=== PATIENT | male | born 1945 | race Caucasian/White ===

== ENCOUNTER 2017-03-04 12:39 | Inpatient (IN) ==
[2017-03-04] MEDS ORDERED: SODIUM CHLORIDE 0.9% 1,000 ML IV STA (15:00)
[2017-03-04 15:30] LABS: Basophils % 0.1 % (0.0-0.8); Hematocrit 32.9 VOL% (42.0-52.0); Hemoglobin 10.5 GM/DL (14.0-18.0); Immature Granulocytes % 0.7 %; Immature Granulocytes Absolute 0.14 #; Lymphocytes # 0.6 10*3/uL (1.4-4.0); Lymphocytes % 2.7 % (21.2-54.2); Mean Corpuscular HGB Conc 31.9 GM/DL (32-36); Mean Corpuscular Hemoglobin 28 PG (27-34); Mean Corpuscular Volume 86.8 FL (87-102); Mean Platelet Volume 11.5 FL (9.6-12.0); Monocytes # 0.7 10*3/uL (0.11-0.8); Monocytes % 3.3 % (1.7-12.7); Neutrophils # 19.3 10*3/uL (1.4-7.4); Neutrophils % 93.2 % (38.7-73.9); Platelet Count 497 T/CUMM (130-400); Red Blood Count 3.79 MC/CUMM (3.8-5.5); Red Cell Distribution Width 15.9 % (9.3-17.3); White Blood Count 20.7 T/CUMM (4-12)
[2017-03-04 15:44] LABS: Bilirubin,Total 0.4 MG/DL (0.2-1.0); Calcium 9.8 MG/DL (8.5-10.1); Osmolality,Calculated 297.4 MOS/KG (273-304); Potassium 3.7 MMOL/L (3.5-5.1); Total Protein 7.5 G/DL (6.4-8.3)
--- NOTE | 2017-03-04 15:47 | XRay Report ---
EXAM: XR abdomen 2V CLINICAL INDICATION: Abdominal Pain COMPARISON: None Findings: No gastric distention. Air-fluid level within the single loop of bowel within the right upper quadrant on upright imaging. Remainder of bowel gas pattern is normal. Visceral shadows are normal. No abnormal focal soft tissue masses or calcific densities identified in the abdomen or pelvis. Osseous structures are somewhat demineralized. IMPRESSION: Nonobstructed bowel gas pattern. Single loop of bowel demonstrating air-fluid level within the upper abdomen, nonspecific. Follow-up as clinically indicated. PROCEDURE INTERPRETED AT [facility] DEPARTMENT OF RADIOLOGY Final Report Signed by: Artem Grant
--- NOTE | 2017-03-04 16:33 | Emergency Department Note ---
IFelipe Gwan, am scribing for, and in the presence of, Bruce Todd Jr., MD 15:03. IPerez Marvin Jr., MD, personally performed the services described in this documentation, ascribed by Jamarcus Wang in my presence, and it is both accurate and complete 513 . Arrival - Arrival Chief Complaint: Abdominal / Flank Pain Stated Complaint: abd pain,weak,very hard of hearing ED Nursing Triage Note: C/O Having abd.pain x 3 weeks., states he feels like he is constipated., last BM was today , patient is by himself - poor historian , Mode of Arrival: Wheelchair Limitations: No Limitations (Patient is very hard of hearing) Source: Patient, Old Records Reviewed, RN Notes Reviewed Time Seen by Provider: 03/04/17 14:47 - History of Present Illness HPI Narrative: Patient is a 71 y/o male who presents to the ED with a c/o stomach pain and tightness in his stomach with an onset 3 weeks ago. Patient stated that it feels like something is "pacted" in his stomach. He continued to note that he has tried some over the counter medications but none of them have worked for him. Patient is followed by [employer] Dr. Fausto Ramires. Patient denies having any fever, chills or a PCP but stated that he goes to Dr. Ramires for most of his medical problems. He has not followed up with Dr. Ramires for his stomach pain. Patient does not have a SHx of tobacco or ETOH. No other problems/complaints reported in ED. Onset (ago): week(s) Consistency: constant Severity: moderate Quality: cramping Allergies/Adverse Reactions: Allergies Allergy/AdvReac Type Severity Reaction Status Date / Time No Known Allergies Allergy Verified 03/04/17 12:55 Home Medications: Home Medications Medication Instructions Recorded Confirmed Type Aspirin [Ecotrin] 81 mg PO DAILY 02/04/15 10/22/15 History HYDROcodone/ACETAMIN 5-325 [[place] 1 tablet PO Q6H #20 tablet 02/04/15 10/24/15 Rx 5-325] Lisinopril 30 mg PO DAILY 02/04/15 10/22/15 History Omeprazole [Prilosec] 20 mg PO DAILY 02/04/15 10/22/15 History amLODIPine [Norvasc] 10 mg PO DAILY 10/22/15 10/22/15 History DULoxetine [Cymbalta] 30 mg PO BEDTIME #30 capsule 11/03/15 Rx Duloxetine HCl [Cymbalta] 60 mg PO DAILY #30 capsule 11/03/15 Rx Gabapentin Cap/Tab [Neurontin 100 mg PO TID #90 capsule 11/03/15 Rx Cap/Tab] Insulin Detemir [Levemir] 40 unit SUBCUT BEDTIME #1 vial 11/03/15 Rx Insulin Lispro [HumaLOG] See Protocol SUBCUT TID W/MEALS #1 11/03/15 Rx vial Magnesium Chloride [Slow Mag] 64 mg PO DAILY #30 tablet 11/03/15 Rx Zaleplon [Sonata] 5 mg PO BEDTIME PRN #30 capsule 11/03/15 Rx carBAMazepine TAB [TEGretol TAB] 200 mg PO BID #60 tablet 11/03/15 Rx hydrALAZINE TAB [Apresoline Tab] 50 mg PO TID #90 tablet 11/03/15 Rx Review of System - Review of System 12 point system: reviewed and no additional remarkable complaints except as stated - Review of System Constitutional: Present: as per HPI. Absent: chills, fever Gastrointestinal: Present: as per HPI, abdominal pain, constipation Medical,Surgical,& Family Hx - Medical History Cardio: History of: CHF, Hypertension, Cardiovascular Problems Psychological: History of: Depression, Psychiatric Problems (depressed mood aeb feelings of helplessness and hopelessness, worthlessness) No history of: Anxiety Disorders, ADHD, Behavior Problems, Bipolar Disorder, Previous Suicide Attempt, Psychiatric/Substance Abuse Tx, Schizophrenia, Violent Behavior Neurology: History of: TIA HEENT: No history of: Ear Problem, Eye Problem, Dental Problems, Glaucoma, Oral Cancer, HEENT Problems Endocrine: History of: Diabetes Mellitus (IDDM) No history of: Adrenal Disease, Diabetes Mellitus (NIDDM), Thyroid Disorder, Endocrine Cancer, Endocrine Problems Rheumatology: History of;: Gout, Rheumatoid Arthritis, Rheumatological Problems No history of;: Fibromyalgia, Myasthenia Gravis, Psoriasis, Sjogrens, Systemic Lupus Erythematosus Respiratory: History of: Obstructive Sleep Apnea, Pneumonia, Respiratory Problems Renal: History of: Renal Failure, Renal Problems (CRF, GOUT) No history of: Renal (Kidney) Cancer, Dialysis Genitourinary: History of: Problems No history of: Bladder Problem, Kidney Stones, Prostate Problems, Recurring Urinary Tract Infections, Genitourinary Cancer Gastrointestinal: History of: GERD, GI Problems No history of: Bowel Obstruction, Clostridium Difficile, Crohn's Disease, Diverticulitis/ Diverticulosis, Esophageal Varices, Gastrointestinal Bleed, Hemorrhoids, Hematochezia, Hepatitis, Liver Problems, Pancreatitis, Polyps, Ulcerative Colitis, Gastrointestinal Cancer Musculoskeletal: History of: Back/Neck Problems, Musculoskeletal Problems No history of: Amputation, Degenerative Disk Disease, Herniated Disk, Osteoporosis, Musculoskeletal Cancer Hematology: No history of: Anemia, Blood Transfusion Reaction, Bleeding Problems, Clotting Problems, Sickle Cell Disease, Hematologic Cancer, Blood Disorders Other: No history of: Anesthesia Reactions, Anaphylaxis, Cancer, Eczema, HIV, Malignant Hyperthermia, MRSA, Vancomycin-Resistant Enterococci, Skin Problems, Miscellaneous Medical Problems - Surgical History Cardiac Surgeries: Patient Denies: Femoral-Popliteal Bypass Graft, Cardiac Catheterization, Cardiac Surgery, Internal Defibrillator, Vascular Access Devices Thoracic Surgeries: Patient denies;: Kidney (Renal Surgery), Lithotripsy, Nephrectomy, Organ Transplant, Lobectomy Neurologic Surgeries: Patient denies: Neurologic Surgery HEENT Surgeries: Patient denies: Eye Surgery, Thyroid Surgery, Tonsilectomy & Adenoidectomy Abdominal Surgeries: Patient denies: Abdominal Surgery, Appendectomy, Cholecystectomy, Colonoscopy , Gastric Bypass Surgery, EGD, Hernia Repair, Splenectomy Reproductive Surgeries: Patient denies;: Cystoscopy, Genitourinary Surgery, Prostate Surgery Orthopedic Surgeries: Surgical HX of;: Total Hip Replacement Patient denies;: Implanted Devices, Orthopedic Surgery, Spinal Surgery, Total Knee Replacement - Family History Family History: Reports;: Family Diabetes, Family Heart Disease, Family Hypertension Denies;: Family Anesthesia Reaction, Family Cancer, Family Psychiatric Problems, Family Stroke - Social History Smoking Status: Never smoker Frequency of Alcohol Use: None Type of Drug Use: None Exam Physical Examination: General: Well-developed well-nourished, no apparent distress. Head: Normocephalic, atraumatic. Eyes: PERRLA, EOMI. Nose: No obvious acute deformities or discharge. Mouth: No obvious acute injury. Neck: Full range of motion without obvious pain. No midline tender to palpation. Lymphatic: no significant lymphadenopathy noted. Lungs: Clear to auscultation bilaterally, normal and equal air movement bilaterally, no obvious rales or wheezing. Heart: regular rate and rhythm, no obvious mummers. Abdomen: Very distended, tight, mild generalized tender to palpation, tympanic Skin: No obivous acute lesions noted , skin pale Musculoskeletal: No gross deformities. Neurological: No focal findings, cranial nerves II through XII grossly normal. Hard of hearing, follows directions, Psychiatric: Anxious : Deferred Vital Signs: Vital Signs Temperature 99.0 F 03/04/17 15:02 Pulse Rate 114 H 03/04/17 15:02 Respiratory Rate 20 03/04/17 15:02 Blood Pressure 126/97 03/04/17 15:02 O2 Sat by Pulse Oximetry 97 03/04/17 13:55 Course Course Narrative: Differential diagnosis: Constipation, partial obstructions, intra-abdominal neoplasia, ascites, - Reevaluation(s) Reevaluation #1: Multiple medical problems that were will require admission, discussed with hospitalist who accepts patient. Time: 16:28 Results - Labs CBC & BMP: 03/04/17 15:16 03/04/17 15:16 Lab Results: I have reviewed the patients labs Labs: Laboratory Tests 03/04/17 15:16 WBC 20.7 H RBC 3.79 L Hgb 10.5 L Hct 32.9 L MCV 86.8 L MCH 28 MCHC 31.9 L RDW 15.9 Plt Count 497 H MPV 11.5 Neut % (Auto) 93.2 H Lymph % (Auto) 2.7 L Kimball % (Auto) 3.3 Eos % (Auto) 0.0 Baso % (Auto) 0.1 Neut # (Auto) 19.3 H Lymph # (Auto) 0.6 L Kimball # (Auto) 0.7 Eos # (Auto) 0.0 Baso # (Auto) 0.0 Immature Gran % 0.7 Nucleated RBC % 0.0 Immature Gran # 0.14 Nucleated RBCs # 0.00 Immature Plt Fraction 0.0 Laboratory Tests 03/04/17 15:16 Lipase 157.0 Laboratory Tests 03/04/17 15:16 Sodium 133 L Potassium 3.7 Chloride 105 Carbon Dioxide 12 L Anion Gap 19.7 H BUN 95 H Creatinine 8.40 H GFR Calculation 7 BUN/Creatinine Ratio 11.00 Glucose 159 H Calculated Osmolality 297.4 Calcium 9.8 Total Bilirubin 0.40 AST 14 ALT 11 L Alkaline Phosphatase 124 H Total Protein 7.5 Albumin 3.0 L Globulin 4.5 H Albumin/Globulin Ratio 0.6 L - Diagnostic Findings Procedure: Abdominal x-ray: report reviewed by me, image reviewed by me ( Nonobstructed bowel gas pattern. Single loop of bowel demonstrating air-fluid within the upper abdomen, nonspecific. Follow-up as clinically indicated. ) Disposition Clinical Impression: Large bowel obstruction, Chronic renal failure, Anemia, Neutrophilia Case discussed with: patient, patient's family Disposition: Still a Patient Condition: Stable Time of Disposition: 16:32
--- NOTE | 2017-03-04 16:47 | CT Report ---
History: Generalized abdominal pain Date: 03/04/2017 Study: CT abdomen and pelvis without contrast Comparison exam: No previous comparison CT Technique: Spiral CT sections were obtained from the lung bases to the pubic symphysis without contrast. Preliminary report discussed with Dr. Todd at time of dictation CT abdomen: There is no gross pneumonia in the partially visualized lung bases. There is no gross pleural or pericardial effusion. There is some mild perihepatic and bilateral paracolic gutter ascites. There is no pneumoperitoneum. There is disproportionate colonic distention compatible with high-grade partial colonic obstruction at the level of the mid to distal descending colon. There is an abrupt transition area, though a definite discrete mass is not seen without benefit of oral contrast. There is moderate gallbladder distention with partially calcific density gallstones in the lumen of the gallbladder. Calcified granulomata are noted in the normal caliber spleen. The liver, adrenal glands, bile ducts are unremarkable. There is rounded exophytic density associated with either kidney compatible with renal cyst formation, though other pathology cannot be excluded without the benefit of renal ultrasound. There is no aortic aneurysm. CT pelvis: There is diverticulosis of sigmoid colon. There is no soft tissue mass of the pelvis. There is mild lumbar spondylosis. Impression: High-grade partial colonic obstruction at the mid to distal descending colon level. Occult colonic malignancy is suspected Ascites Cholelithiasis The CT exam was performed using one or more of the following dose reduction techniques: Automated exposure control, adjustment of the mA and/or kV according to patient size, or use of iterative reconstruction technique. PROCEDURE INTERPRETED AT [facility] DEPARTMENT OF RADIOLOGY Final Report Signed by: Dr. Ananya Blue
[2017-03-04 17:40] LABS: Lymphocytes 4 % (20-55); Platelet Estimate Increased; Segmented Neutrophils 95 % (50-85); Total Cells Counted 100
[2017-03-04 17:41] LABS: Burr Cells Few; Ovalocytes Few; Poikilocytosis 1+; Tear Drop Cells Few
--- NOTE | 2017-03-04 18:06 | Hospitalist History & Physical ---
<Twyla Barrientos - Last Filed: 03/04/17 17:50> Assessment and Plan (1) Large bowel obstruction Status: Acute Assessment and plan: Admit to service. Place on med surg unit. Consult surgery. Keep NPO for now. IVFs. Start IV antibiotics. Current Visit: Yes (2) Chronic renal failure Status: Acute Assessment and plan: Consult renal. Bun/creatinine 85/8.40. Current Visit: Yes (3) Hypertension Status: Acute Assessment and plan: Pt's bp stable now. Current Visit: No (4) Type 2 diabetes mellitus Status: Acute Assessment and plan: Accuchecks achs. SSI. Current Visit: No (5) Gout Status: Acute Current Visit: No History of Present Illness Chief complaint: constipation History of present illness: Mr. Allred is a 71 year old male with a history of GERD, hypertension, diabetes , gout, chronic renal failure, PTSD, hearing loss, and depression that presented to the ED for further evaluation of constipation. Patient is accompanied by his daughter who is present at the bedside. Patient reports a 3 or 4 week history of constipation. Patient states that he did have a bowel movement a couple of days ago but that it was the size of a pecan and it was "mushy". Pt. states that his abdomen hurts and that it is a sharp pain that radiates from side to side. Pt. denies taking any medications for the pain. Pt. denies any chest pain, nausea or vomiting, chills, night sweats. Pt. does not smoke or drink. He is followed by Dr. Fausto Ramires for renal failure. Not yet on dialysis. There are no other complaints in the ED at this time. Labs reveal elevated WBC and renal failure. CT of abdomen 'revealed high grade partial colonic obstruction at the mid to distal descending colon level. Occult colonic malignancy is suspected'. Pt's case has been discussed with Dr. Green and the patient will be admitted to the hospitalist service for further eval and treatment. Dr. Jaime (surgery) will see the patient. Nephrology will also be consulted. Home Medications Medication Instructions Recorded Confirmed Type Aspirin [Ecotrin] 81 mg PO DAILY 02/04/15 10/22/15 History HYDROcodone/ACETAMIN 5-325 [[place] 1 tablet PO Q6H #20 tablet 02/04/15 10/24/15 Rx 5-325] Lisinopril 30 mg PO DAILY 02/04/15 10/22/15 History Omeprazole [Prilosec] 20 mg PO DAILY 02/04/15 10/22/15 History amLODIPine [Norvasc] 10 mg PO DAILY 10/22/15 10/22/15 History DULoxetine [Cymbalta] 30 mg PO BEDTIME #30 capsule 11/03/15 Rx Duloxetine HCl [Cymbalta] 60 mg PO DAILY #30 capsule 11/03/15 Rx Gabapentin Cap/Tab [Neurontin 100 mg PO TID #90 capsule 11/03/15 Rx Cap/Tab] Insulin Detemir [Levemir] 40 unit SUBCUT BEDTIME #1 vial 11/03/15 Rx Insulin Lispro [HumaLOG] See Protocol SUBCUT TID W/MEALS #1 11/03/15 Rx vial Magnesium Chloride [Slow Mag] 64 mg PO DAILY #30 tablet 11/03/15 Rx Zaleplon [Sonata] 5 mg PO BEDTIME PRN #30 capsule 11/03/15 Rx carBAMazepine TAB [TEGretol TAB] 200 mg PO BID #60 tablet 11/03/15 Rx hydrALAZINE TAB [Apresoline Tab] 50 mg PO TID #90 tablet 11/03/15 Rx Allergies Allergy/AdvReac Type Severity Reaction Status Date / Time No Known Allergies Allergy Verified 03/04/17 12:55 Medical,Surgical,& Family Hx - Medical History Cardio: History of: CHF, Hypertension, Cardiovascular Problems Psychological: History of: Depression, Psychiatric Problems (depressed mood aeb feelings of helplessness and hopelessness, worthlessness) No history of: Anxiety Disorders, ADHD, Behavior Problems, Bipolar Disorder, Previous Suicide Attempt, Psychiatric/Substance Abuse Tx, Schizophrenia, Violent Behavior Neurology: History of: TIA HEENT: No history of: Ear Problem, Eye Problem, Dental Problems, Glaucoma, Oral Cancer, HEENT Problems Endocrine: History of: Diabetes Mellitus (IDDM) No history of: Adrenal Disease, Diabetes Mellitus (NIDDM), Thyroid Disorder, Endocrine Cancer, Endocrine Problems Rheumatology: History of;: Gout, Rheumatoid Arthritis, Rheumatological Problems No history of;: Fibromyalgia, Myasthenia Gravis, Psoriasis, Sjogrens, Systemic Lupus Erythematosus Respiratory: History of: Obstructive Sleep Apnea, Pneumonia, Respiratory Problems Renal: History of: Renal Failure, Renal Problems (CRF, GOUT) No history of: Renal (Kidney) Cancer, Dialysis Genitourinary: History of: Problems No history of: Bladder Problem, Kidney Stones, Prostate Problems, Recurring Urinary Tract Infections, Genitourinary Cancer Gastrointestinal: History of: GERD, GI Problems No history of: Bowel Obstruction, Clostridium Difficile, Crohn's Disease, Diverticulitis/ Diverticulosis, Esophageal Varices, Gastrointestinal Bleed, Hemorrhoids, Hematochezia, Hepatitis, Liver Problems, Pancreatitis, Polyps, Ulcerative Colitis, Gastrointestinal Cancer Musculoskeletal: History of: Back/Neck Problems, Musculoskeletal Problems No history of: Amputation, Degenerative Disk Disease, Herniated Disk, Osteoporosis, Musculoskeletal Cancer Hematology: No history of: Anemia, Blood Transfusion Reaction, Bleeding Problems, Clotting Problems, Sickle Cell Disease, Hematologic Cancer, Blood Disorders Other: No history of: Anesthesia Reactions, Anaphylaxis, Cancer, Eczema, HIV, Malignant Hyperthermia, MRSA, Vancomycin-Resistant Enterococci, Skin Problems, Miscellaneous Medical Problems - Surgical History Cardiac Surgeries: Patient Denies: Femoral-Popliteal Bypass Graft, Cardiac Catheterization, Cardiac Surgery, Internal Defibrillator, Vascular Access Devices Thoracic Surgeries: Patient denies;: Kidney (Renal Surgery), Lithotripsy, Nephrectomy, Organ Transplant, Lobectomy Neurologic Surgeries: Patient denies: Neurologic Surgery HEENT Surgeries: Patient denies: Eye Surgery, Thyroid Surgery, Tonsilectomy & Adenoidectomy Abdominal Surgeries: Patient denies: Abdominal Surgery, Appendectomy, Cholecystectomy, Colonoscopy , Gastric Bypass Surgery, EGD, Hernia Repair, Splenectomy Reproductive Surgeries: Patient denies;: Cystoscopy, Genitourinary Surgery, Prostate Surgery Orthopedic Surgeries: Surgical HX of;: Total Hip Replacement Patient denies;: Implanted Devices, Orthopedic Surgery, Spinal Surgery, Total Knee Replacement - Family History Family History: Reports;: Family Diabetes, Family Heart Disease, Family Hypertension, Family Stroke (mom - lung cancer) Denies;: Family Anesthesia Reaction, Family Cancer, Family Psychiatric Problems - Social History Smoking Status: Never smoker Frequency of Alcohol Use: None (former drink. 50 yrs ago) Type of Drug Use: None Lives With:: Alone Functional capacity: independent ambulation 12 point system: reviewed and no additional remarkable complaints except as stated - Constitutional Constitutional: Absent: chills, fever(s), night sweats - EENT Eyes: Absent: loss of vision Nose, mouth and throat: Absent: dysphagia, headache(s) - Cardiovascular Cardiovascular: Absent: chest pain at rest, edema - Respiratory Respiratory: Present: dyspnea on exertion. Absent: cough - Gastrointestinal Gastrointestinal: Present: abdominal pain. Absent: diarrhea, nausea, vomiting - Genitourinary Genitourinary: Absent: difficulty urinating - Musculoskeletal Musculoskeletal: Absent: limited range of motion - Neurological Neurological: Absent: confusion, dizziness - Psychiatric Psychiatric: Present: depression. Absent: confusion Exam - Constitutional Vitals: Period Temp Pulse Resp BP Sys/Florez Pulse Ox Last 24 Hr 99.0 F-99.0 F 89-114 18-20 126-138/97-98 97-97 General appearance: normal weight, no acute distress - Head Head exam: Present: normal inspection, normocephalic - Eye Eye exam: Present: EOMI. Absent: scleral icterus Pupils: Present: MEGHA. Absent: fixed - Respiratory Respiratory exam: Present: clear to auscultation bilaterally. Absent: wheezes - Cardiovascular Cardiovascular exam: Present: regular rate and rhythm - GI/Abdominal GI/Abdominal exam: Present: distended, hypoactive bowel sounds, soft. Absent: normal bowel sounds - Extremities Exam Extremities exam: Present: normal capillary refill, full ROM. Absent: edema - Neurological Exam Neurological exam: Present: alert, oriented X3 - Psychiatric Psychiatric exam: Present: normal affect, normal mood - Skin Skin exam: Present: normal color, warm, dry Results - Labs CBC & BMP: 03/04/17 15:16 03/04/17 15:16 Lab Results: I have reviewed the past 24 hour labs <Ev Green - Last Filed: 03/04/17 19:14> Assessment and Plan (1) Large bowel obstruction Status: Acute Assessment and plan: Dr. Haywood is taking him to surgery Current Visit: Yes (2) Leukocytosis Status: Acute Assessment and plan: reactive, blood cx X2, chest xray, UA, Invanz Current Visit: Yes (3) Anemia Status: Acute Assessment and plan: protonix Current Visit: Yes (4) Chronic renal failure Status: Acute Assessment and plan: gentle hydration for acute on chronic renal failure, Consult Dr. Ramires Current Visit: Yes (5) Gout Status: Acute Current Visit: No (6) Hypertension Status: Acute Assessment and plan: Hold meds for now Current Visit: No History of Present Illness History of present illness: Mr. Allred is a 71 year old male seen and examined. Agree with above. No bowel sounds on examination. I called Dr Haywood and has taken him to surgery tonight. Descending colon dilated to 9 cm. Exam - Constitutional Vitals: Period Temp Pulse Resp BP Sys/Florez Pulse Ox Last 24 Hr 98.5 F-99.0 F 82-114 18-24 126-162/76-98 94-98 - Eye Pupils: Present: normal accommodation - ENT ENT exam: Present: normal exam, normal external ear exam - Neck Neck exam: Absent: lymphadenopathy, thyromegaly - GI/Abdominal GI/Abdominal exam: Absent: soft - Neurological Exam Neurological exam: Present: CN II-XII intact, reflexes normal. Absent: motor sensory deficit Results - Labs CBC & BMP: 03/04/17 15:16 03/04/17 15:16 - Diagnostic Findings Procedure: CT Abdomen and Pelvis: report reviewed by me ( High-grade partial colonic obstruction at the mid to)
[2017-03-04] MEDS ORDERED: SODIUM CHLORIDE 0.9% 1,000 ML IV SCH (18:09)
[2017-03-04] MEDS ORDERED: ONDANSETRON 4 MG/2 ML VIAL IV PRN (18:09)
[2017-03-04] MEDS ORDERED: GLUCAGON 1 MG VIAL IM PRN (18:09)
[2017-03-04] MEDS ORDERED: DEXTROSE 50% 25 GM/50 ML SYRINGE IV PRN (18:09)
[2017-03-04] MEDS ORDERED: metroNIDAZOLE INJ 500 MG in PREMIX 1 EACH IV SCH (18:30)
--- NOTE | 2017-03-04 18:34 | General Surg History&Physical ---
Assessment and Plan (1) Large bowel obstruction Status: Acute Assessment and plan: Impression: Bowel obstruction Plan: I reviewed the lab work CT images and report. He has a very high-grade obstruction of the descending colon most likely represents malignancy. He is very tender on exam. I discussed options with the patient including proceeding today with exploratory laparotomy possible bowel resection and possible colostomy and any other indicated procedure. The risk of the procedure including bleeding, infection, damage to surrounding structures, need for further surgery were all discussed in detail and he agrees to proceed. We will plan to proceed with central line at the time of surgery for better access. We will plan to place a large bore catheter that could be used for dialysis in the near future if needed. Current Visit: Yes History of Present Illness Chief complaint: Abdominal pain History of present illness: Mr. Allred is a 71 year old male who has been having a 3 week history of constipation and worsening abdominal pain. He has tried multiple over-the- counter agents and laxatives and enemas without significant success. He did have a small bowel movement today but states that his pain has continued and his abdomen has become more and more distended. He is very hard of hearing. He looks mildly toxic. He does not report any nausea or vomiting. He has multiple medical problems including renal insufficiency. He is apparently being worked up for a fistula. His creatinine is up to 8.3 this admission. He states he has been unable to get medical care because his daughter is only one who helps take care of him and she has been on vacation for 2-3 weeks. Home Medications Medication Instructions Recorded Confirmed Type Aspirin [Ecotrin] 81 mg PO DAILY 02/04/15 10/22/15 History HYDROcodone/ACETAMIN 5-325 [[place] 1 tablet PO Q6H #20 tablet 02/04/15 10/24/15 Rx 5-325] Lisinopril 30 mg PO DAILY 02/04/15 10/22/15 History Omeprazole [Prilosec] 20 mg PO DAILY 02/04/15 10/22/15 History amLODIPine [Norvasc] 10 mg PO DAILY 10/22/15 10/22/15 History DULoxetine [Cymbalta] 30 mg PO BEDTIME #30 capsule 11/03/15 Rx Duloxetine HCl [Cymbalta] 60 mg PO DAILY #30 capsule 11/03/15 Rx Gabapentin Cap/Tab [Neurontin 100 mg PO TID #90 capsule 11/03/15 Rx Cap/Tab] Insulin Detemir [Levemir] 40 unit SUBCUT BEDTIME #1 vial 11/03/15 Rx Insulin Lispro [HumaLOG] See Protocol SUBCUT TID W/MEALS #1 11/03/15 Rx vial Magnesium Chloride [Slow Mag] 64 mg PO DAILY #30 tablet 11/03/15 Rx Zaleplon [Sonata] 5 mg PO BEDTIME PRN #30 capsule 11/03/15 Rx carBAMazepine TAB [TEGretol TAB] 200 mg PO BID #60 tablet 11/03/15 Rx hydrALAZINE TAB [Apresoline Tab] 50 mg PO TID #90 tablet 11/03/15 Rx Allergies Allergy/AdvReac Type Severity Reaction Status Date / Time No Known Allergies Allergy Verified 03/04/17 12:55 Medical,Surgical,& Family Hx - Medical History Cardio: History of: CHF, Hypertension, Cardiovascular Problems Psychological: History of: Depression, Psychiatric Problems (depressed mood aeb feelings of helplessness and hopelessness, worthlessness) No history of: Anxiety Disorders, ADHD, Behavior Problems, Bipolar Disorder, Previous Suicide Attempt, Psychiatric/Substance Abuse Tx, Schizophrenia, Violent Behavior Neurology: History of: TIA HEENT: No history of: Ear Problem, Eye Problem, Dental Problems, Glaucoma, Oral Cancer, HEENT Problems Endocrine: History of: Diabetes Mellitus (IDDM) No history of: Adrenal Disease, Diabetes Mellitus (NIDDM), Thyroid Disorder, Endocrine Cancer, Endocrine Problems Rheumatology: History of;: Gout, Rheumatoid Arthritis, Rheumatological Problems No history of;: Fibromyalgia, Myasthenia Gravis, Psoriasis, Sjogrens, Systemic Lupus Erythematosus Respiratory: History of: Asthma, Obstructive Sleep Apnea, Pneumonia, Respiratory Problems Renal: History of: Renal Failure, Renal Problems (CRF, GOUT) No history of: Renal (Kidney) Cancer, Dialysis Genitourinary: History of: Problems No history of: Bladder Problem, Kidney Stones, Prostate Problems, Recurring Urinary Tract Infections, Genitourinary Cancer Gastrointestinal: History of: GERD, GI Problems No history of: Bowel Obstruction, Clostridium Difficile, Crohn's Disease, Diverticulitis/ Diverticulosis, Esophageal Varices, Gastrointestinal Bleed, Hemorrhoids, Hematochezia, Hepatitis, Liver Problems, Pancreatitis, Polyps, Ulcerative Colitis, Gastrointestinal Cancer Musculoskeletal: History of: Back/Neck Problems, Musculoskeletal Problems No history of: Amputation, Degenerative Disk Disease, Herniated Disk, Osteoporosis, Musculoskeletal Cancer Hematology: No history of: Anemia, Blood Transfusion Reaction, Bleeding Problems, Clotting Problems, Sickle Cell Disease, Hematologic Cancer, Blood Disorders Other: No history of: Anesthesia Reactions, Anaphylaxis, Cancer, Eczema, HIV, Malignant Hyperthermia, MRSA, Vancomycin-Resistant Enterococci, Skin Problems, Miscellaneous Medical Problems - Surgical History Cardiac Surgeries: Patient Denies: Femoral-Popliteal Bypass Graft, Cardiac Catheterization, Cardiac Surgery, Internal Defibrillator, Vascular Access Devices Thoracic Surgeries: Patient denies;: Kidney (Renal Surgery), Lithotripsy, Nephrectomy, Organ Transplant, Lobectomy Neurologic Surgeries: Patient denies: Neurologic Surgery HEENT Surgeries: Patient denies: Eye Surgery, Thyroid Surgery, Tonsilectomy & Adenoidectomy Abdominal Surgeries: Patient denies: Abdominal Surgery, Appendectomy, Cholecystectomy, Colonoscopy , Gastric Bypass Surgery, EGD, Hernia Repair, Splenectomy Reproductive Surgeries: Patient denies;: Cystoscopy, Genitourinary Surgery, Prostate Surgery Orthopedic Surgeries: Surgical HX of;: Total Hip Replacement Patient denies;: Implanted Devices, Orthopedic Surgery, Spinal Surgery, Total Knee Replacement - Family History Family History: Reports;: Family Diabetes, Family Heart Disease, Family Hypertension, Family Stroke (mom - lung cancer) Denies;: Family Anesthesia Reaction, Family Cancer, Family Psychiatric Problems - Social History Smoking Status: Never smoker Frequency of Alcohol Use: None Type of Drug Use: None Exam - Constitutional Vitals: Period Temp Pulse Resp BP Sys/Florez Pulse Ox Last 24 Hr 98.5 F-99.0 F 82-114 18-24 126-162/76-98 94-98 General appearance: no acute distress - Head Head exam: Present: normocephalic - Neck Neck exam: Present: normal inspection - Respiratory Respiratory exam: Present: clear to auscultation bilaterally - Cardiovascular Cardiovascular exam: Present: RRR - GI/Abdominal GI/Abdominal exam: Present: other (Distended and tense, very tender to palpation globally. Positive rebound) - Back Exam Back exam: Present: normal inspection - Neurological Exam Neurological exam: Present: alert, oriented X3 Speech: Present: normal - Skin Skin exam: Present: normal color 12 point system: reviewed and no additional remarkable complaints except as stated Results - Labs CBC & BMP: 03/04/17 15:16 03/04/17 15:16 Lab Results: I have reviewed the past 24 hour labs
--- NOTE | 2017-03-04 18:40 | Nephrology Consult Note ---
History of Present Illness Chief complaint: Renal failure History of present illness: Mr. Allred is a 71 year old male who presented with abdominal pain and constipation. CT scan shows partial colon obstruction. He has chronic renal failure secondary to diabetes. He has been followed by Dr. Ramires. He thinks his last creatinine was approximately 5. It is noted to be above 8 presently. He denies shortness of breath or dysuria. Home Medications Medication Instructions Recorded Confirmed Type Aspirin [Ecotrin] 81 mg PO DAILY 02/04/15 10/22/15 History HYDROcodone/ACETAMIN 5-325 [[place] 1 tablet PO Q6H #20 tablet 02/04/15 10/24/15 Rx 5-325] Lisinopril 30 mg PO DAILY 02/04/15 10/22/15 History Omeprazole [Prilosec] 20 mg PO DAILY 02/04/15 10/22/15 History amLODIPine [Norvasc] 10 mg PO DAILY 10/22/15 10/22/15 History DULoxetine [Cymbalta] 30 mg PO BEDTIME #30 capsule 11/03/15 Rx Duloxetine HCl [Cymbalta] 60 mg PO DAILY #30 capsule 11/03/15 Rx Gabapentin Cap/Tab [Neurontin 100 mg PO TID #90 capsule 11/03/15 Rx Cap/Tab] Insulin Detemir [Levemir] 40 unit SUBCUT BEDTIME #1 vial 11/03/15 Rx Insulin Lispro [HumaLOG] See Protocol SUBCUT TID W/MEALS #1 11/03/15 Rx vial Magnesium Chloride [Slow Mag] 64 mg PO DAILY #30 tablet 11/03/15 Rx Zaleplon [Sonata] 5 mg PO BEDTIME PRN #30 capsule 11/03/15 Rx carBAMazepine TAB [TEGretol TAB] 200 mg PO BID #60 tablet 11/03/15 Rx hydrALAZINE TAB [Apresoline Tab] 50 mg PO TID #90 tablet 11/03/15 Rx Allergies Allergy/AdvReac Type Severity Reaction Status Date / Time No Known Allergies Allergy Verified 03/04/17 12:55 Medical,Surgical,& Family Hx - Medical History Cardio: History of: CHF, Hypertension, Cardiovascular Problems Psychological: History of: Depression, Psychiatric Problems (depressed mood aeb feelings of helplessness and hopelessness, worthlessness) No history of: Anxiety Disorders, ADHD, Behavior Problems, Bipolar Disorder, Previous Suicide Attempt, Psychiatric/Substance Abuse Tx, Schizophrenia, Violent Behavior Neurology: History of: TIA HEENT: No history of: Ear Problem, Eye Problem, Dental Problems, Glaucoma, Oral Cancer, HEENT Problems Endocrine: History of: Diabetes Mellitus (IDDM) No history of: Adrenal Disease, Diabetes Mellitus (NIDDM), Thyroid Disorder, Endocrine Cancer, Endocrine Problems Rheumatology: History of;: Gout, Rheumatoid Arthritis, Rheumatological Problems No history of;: Fibromyalgia, Myasthenia Gravis, Psoriasis, Sjogrens, Systemic Lupus Erythematosus Respiratory: History of: Asthma, Obstructive Sleep Apnea, Pneumonia, Respiratory Problems Renal: History of: Renal Failure, Renal Problems (CRF, GOUT) No history of: Renal (Kidney) Cancer, Dialysis Genitourinary: History of: Problems No history of: Bladder Problem, Kidney Stones, Prostate Problems, Recurring Urinary Tract Infections, Genitourinary Cancer Gastrointestinal: History of: GERD, GI Problems No history of: Bowel Obstruction, Clostridium Difficile, Crohn's Disease, Diverticulitis/ Diverticulosis, Esophageal Varices, Gastrointestinal Bleed, Hemorrhoids, Hematochezia, Hepatitis, Liver Problems, Pancreatitis, Polyps, Ulcerative Colitis, Gastrointestinal Cancer Musculoskeletal: History of: Back/Neck Problems, Musculoskeletal Problems No history of: Amputation, Degenerative Disk Disease, Herniated Disk, Osteoporosis, Musculoskeletal Cancer Hematology: No history of: Anemia, Blood Transfusion Reaction, Bleeding Problems, Clotting Problems, Sickle Cell Disease, Hematologic Cancer, Blood Disorders Other: No history of: Anesthesia Reactions, Anaphylaxis, Cancer, Eczema, HIV, Malignant Hyperthermia, MRSA, Vancomycin-Resistant Enterococci, Skin Problems, Miscellaneous Medical Problems - Surgical History Cardiac Surgeries: Patient Denies: Femoral-Popliteal Bypass Graft, Cardiac Catheterization, Cardiac Surgery, Internal Defibrillator, Vascular Access Devices Thoracic Surgeries: Patient denies;: Kidney (Renal Surgery), Lithotripsy, Nephrectomy, Organ Transplant, Lobectomy Neurologic Surgeries: Patient denies: Neurologic Surgery HEENT Surgeries: Patient denies: Eye Surgery, Thyroid Surgery, Tonsilectomy & Adenoidectomy Abdominal Surgeries: Patient denies: Abdominal Surgery, Appendectomy, Cholecystectomy, Colonoscopy , Gastric Bypass Surgery, EGD, Hernia Repair, Splenectomy Reproductive Surgeries: Patient denies;: Cystoscopy, Genitourinary Surgery, Prostate Surgery Orthopedic Surgeries: Surgical HX of;: Total Hip Replacement Patient denies;: Implanted Devices, Orthopedic Surgery, Spinal Surgery, Total Knee Replacement - Family History Family History: Reports;: Family Diabetes, Family Heart Disease, Family Hypertension, Family Stroke (mom - lung cancer) Denies;: Family Anesthesia Reaction, Family Cancer, Family Psychiatric Problems - Social History Smoking Status: Never smoker Frequency of Alcohol Use: None Type of Drug Use: None Review of Systems 12 point system: reviewed and no additional remarkable complaints except as stated Exam - Vital Signs Vital signs: Period Temp Pulse Resp BP Sys/Florez Pulse Ox Last 24 Hr 98.5 F-99.0 F 82-114 18-24 126-162/76-98 94-98 Exam: Gen.: Alert and oriented x3. ENT: Pupils equal round reactive to light. EOMs intact. Mucous membranes moist. Neck: Supple. No JVD or bruit. Cardiovascular: Regular rate and rhythm. 2/6 systolic murmur Lungs: Clear Abdomen: Moderately distended. Mild left lower quadrant tenderness. No rebound Extremities: No edema Results - Labs CBC & BMP: 03/04/17 15:16 03/04/17 15:16 Assessment and Plan (1) Chronic renal failure Status: Acute Assessment and plan: 71-year-old man with: * CRF stage IV * Acute on chronic renal failure. He appears to be mildly volume depleted. He is not hyperkalemic. Renal function will be monitored closely perioperatively. He understands that renal function may worsen due to acute illness and required surgery. Discontinue JAIME inhibitor * Large bowel obstruction. Surgery is planned * Diabetes mellitus * Hypertension * PTSD Current Visit: Yes (2) Large bowel obstruction Status: Acute Current Visit: Yes (3) Hypertension Status: Acute Current Visit: No (4) Post traumatic stress disorder (PTSD) Status: Acute Current Visit: No (5) Type 2 diabetes mellitus Status: Acute Current Visit: No
--- NOTE | 2017-03-04 20:02 | XRay Report ---
Portable chest March 04, 2017 Indication: Fever cough Comparison images dated October 29, 2015 Findings: Mild plaquing along the arch. Granulomatous changes within the sharon. Lungs are clear bilaterally. Heart size is stable. No acute osseous abnormalities. Impression: No acute cardiopulmonary findings PROCEDURE INTERPRETED AT [facility] [place] DEPARTMENT OF RADIOLOGY Final Report Signed by: Artem Grant
--- NOTE | 2017-03-04 20:17 | EKG Report ---
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
--- NOTE | 2017-03-04 21:38 | Ultrasound Report ---
US renal Bilateral Indication: Worsening renal function, chronic kidney disease. Comparison: April 04, 2013. Technique: Multiple longitudinal and transverse real-time sonographic images of the kidneys were obtained. Findings: Increased echogenicity bilaterally. The right kidney measures 5.4 x 10.2 x 4.7 cm, and the left kidney measures 5.4 x 10.0 x 5.0 cm. There is no evidence of nephrolithiasis or abnormal perinephric fluid collections. Trace perinephric fluid bilaterally. Scattered cysts, largest on the right measures 1.7 x 2.3 x 2.7 cm and is somewhat complex in overall appearance. Largest on the left measures 2.4 x 2.2 x 2.1 cm. Ultrasound images were captured and stored. IMPRESSION: 1. Echogenic kidneys suggesting underlying medical renal disease 2. Bilateral renal cysts, largest on the right is complex in appearance and does not meet strict criteria for simple cyst. 6 month follow-up is suggested. PROCEDURE INTERPRETED AT [facility] DEPARTMENT OF RADIOLOGY Final Report Signed by: Artem Grant
[2017-03-04] MEDS: INSULIN LISPRO 100 UNIT/ML SUBCUT SCH (22:12)
[2017-03-04] MEDS ORDERED: DEXTROSE 5% NACL 0.45% 1,000 ML IV SCH (23:30)
--- NOTE | 2017-03-04 23:49 | Operative Note ---
Date of procedure: 03/04/17 Pre-op diagnosis: Bowel obstruction Post-op diagnosis: same (Descending colon mass causing obstruction, cecal perforation) Procedure: Procedure performed: #1 exploratory laparotomy with partial colectomy #2 repair of cecal perforation #3 decompression of large bowel #4 mobilization of the splenic flexure #5 placement of right internal jugular large-bore central venous catheter #6 modifier 22 Procedure in detail: After informed consent was obtained the patient was taken operating suite and laid supine on the operating table. After general anesthesia was initiated and the patient was placed in Trendelenburg position. The right neck and chest were prepped and draped in usual sterile fashion. Ultrasound was brought over through a sterile sleeve cover. After procedural pause ultrasound the right neck revealed a patent and compressible right internal jugular vein. The carotid artery was also identified. The right internal jugular vein was then accessed using an 18-gauge Seldinger needle under ultrasound guidance on the first attempt. There was return of nonpulsatile dark red blood. Guidewire was inserted and advanced without resistance. Ultrasound confirmed the guidewire be coursing through the visualized portion of the right internal jugular vein. Small incision was made around the guidewire and the tract was dilated using Seldinger technique. Next a non-cuffed large bore central venous catheter was inserted over the guidewire and advanced using Seldinger technique. The guidewire was removed. All ports withdrew and flushed easily. I were locked with saline. Catheter was secured in place with 2-0 silk suture. Sterile dressings applied. Next the abdomen was prepped and draped in usual sterile fashion. Again after procedural pause, a midline laparotomy incision was made and dissection carried down through the skin and soft tissue. The fascia was opened. Upon entrance of the fascia identified dilated bowel. There was dishwater colored fluid throughout the abdomen. Identified a cecal perforation that appeared small and was closed with 2-0 silk suture. The bowel was very dilated but I could appreciate a concentric stricturing mass in the descending colon. I did not encounter any bulky nodes in the mesentery. The liver was palpated and I did not feel any mass or nodules. The left colon was mobilized along the white line of Toldt. I was unable to adequately expose the splenic flexure because of the dilated bowel. Therefore a colotomy was made in the transverse colon that was to be resected and the large intestine was decompressed both proximally and distally. Is quite a bit of spillage but it was controlled as best we could with laps and suctioned. Once the bowel was decompressed the colotomy was oversewn with silk and I was then able to better visualize the splenic flexure and remaining abdominal contents. The lesser sac opened and the splenic flexure was mobilized. The transverse colon was then transected using a CARLOS stapling device with a blue load just to the right of the colotomy. Identified a point approximately 10-12 cm distal to the stricture arising mass and divided the colon using a CARLOS stapling device with a blue load at approximately the descending colon sigmoid colon junction. The left ureter was then visualized. It was preserved. The left colon mesentery was then divided with the LigaSure device. The specimen was removed and there was excellent hemostasis. The cecal repair was then inspected and there was no further leakage. The bowel was left in discontinuity with plans for second look laparotomy. This is planned because there was quite a bit of spillage and I feel like the abdominal cavity needs to be irrigated further. As well I would like to look at the cecal repair. NG tube was confirmed in the stomach. There is no other obvious pathology identified. The abdomen was copiously irrigated and suctioned until the irrigant remained clear. There is good hemostasis. Abdominal wound VAC was then applied with a good seal. Patient was left intubated and taken to recovery in the ICU in critical condition. All lap and needle counts were correct at the end of the case. I am adding modifier 22 for the extensive time and effort required beyond a normal procedure of this type. This was due to the tedious dissection and a significant time spent decompressing the bowel to enhance visualization. This easily triple the operative time. I discussed the findings and the patient's condition with the patient's family. They want to make him a DO NOT RESUSCITATE. They are okay with pressor support but they do not want CPR performed if it is needed. They feel that that is the patient's wishes. Anesthesia: GETA Surgeon / Physician: Michael Haywood Estimated blood loss: other (Less than 75 cc) Specimens: other (Transverse and descending colon) Condition: critical Disposition: ICU Results - Labs CBC & BMP: 03/04/17 15:16 03/04/17 15:16 Discharge Plan - Discharge Medications No Action Omeprazole [Prilosec] 20 mg PO DAILY Lisinopril 30 mg PO DAILY Aspirin [Ecotrin] 81 mg PO DAILY HYDROcodone/ACETAMIN 5-325 [[place] 5-325] 1 tablet PO Q6H #20 tablet amLODIPine [Norvasc] 10 mg PO DAILY DULoxetine [Cymbalta] 30 mg PO BEDTIME #30 capsule Gabapentin Cap/Tab [Neurontin Cap/Tab] 100 mg PO TID #90 capsule Insulin Detemir [Levemir] 40 unit SUBCUT BEDTIME #1 vial Insulin Lispro [HumaLOG] See Protocol SUBCUT TID W/MEALS #1 vial Magnesium Chloride [Slow Mag] 64 mg PO DAILY #30 tablet Zaleplon [Sonata] 5 mg PO BEDTIME PRN #30 capsule PRN Reason: Sleep hydrALAZINE TAB [Apresoline Tab] 50 mg PO TID #90 tablet Duloxetine HCl [Cymbalta] 60 mg PO DAILY #30 capsule carBAMazepine TAB [TEGretol TAB] 200 mg PO BID #60 tablet - Follow Up or Referral - Forms/Instructions
[2017-03-05] MEDS ORDERED: PROPOFOL 200 MG/20 ML VIAL IV ONE (00:03)
[2017-03-05] MEDS ORDERED: SEVOFLURANE 1 UNIT/15 MINUTE INH ONE (00:03)
[2017-03-05] MEDS ORDERED: fentaNYL 100 MCG/2 ML VIAL ONE ×2 (00:04)
[2017-03-05] MEDS ORDERED: ROCURONIUM 100 MG/10 ML VIAL IV ONE (00:04)
[2017-03-05] MEDS ORDERED: PHENYLEPHRINE 50 MG/5 ML VIAL ONE (00:04)
[2017-03-05] MEDS ORDERED: MIDAZOLAM 2 MG/2 ML VIAL ONE (00:04)
[2017-03-05] MEDS ORDERED: ONDANSETRON 4 MG/2 ML VIAL ONE (00:04)
[2017-03-05 00:06] LABS: Basophils % 0.2 % (0.0-0.8); Hematocrit 35.3 VOL% (42.0-52.0); Hemoglobin 11.1 GM/DL (14.0-18.0); Immature Granulocytes % 1.2 %; Immature Granulocytes Absolute 0.15 #; Lymphocytes # 0.7 10*3/uL (1.4-4.0); Lymphocytes % 5.7 % (21.2-54.2); Mean Corpuscular HGB Conc 31.4 GM/DL (32-36); Mean Corpuscular Hemoglobin 28 PG (27-34); Mean Corpuscular Volume 87.8 FL (87-102); Mean Platelet Volume 11.6 FL (9.6-12.0); Monocytes # 0.6 10*3/uL (0.11-0.8); Monocytes % 4.5 % (1.7-12.7); Neutrophils # 11.3 10*3/uL (1.4-7.4); Neutrophils % 88.4 % (38.7-73.9); Platelet Count 525 T/CUMM (130-400); Red Blood Count 4.02 MC/CUMM (3.8-5.5); Red Cell Distribution Width 15.8 % (9.3-17.3); White Blood Count 12.7 T/CUMM (4-12)
[2017-03-05 00:20] LABS: Calcium 8.4 MG/DL (8.5-10.1); Osmolality,Calculated 308.8 MOS/KG (273-304); Potassium 4.9 MMOL/L (3.5-5.1)
[2017-03-05 00:29] LABS: Amorphous Crystals,Urine Occasional /HPF (Few); Apearance,Urine CLOUDY (Clear); Bacteria,Urine Moderate /HPF (Few); Bilirubin,Urine Negative (Negative); Blood, Urine Moderate mg/dL (Negative); Glucose,Urine (UA) 50 mg/dL (Negative); Ketones,Urine 5 mg/dL (Negative); Nitrite,Urine Negative (Negative); Protein,Urine >=500 MG/DL; Urine Color Yellow (Yellow); Urine Urobilinogen < 2.0 EU/DL (0.2-1.0)
[2017-03-05 00:31] LABS: ABG Base Excess -19.2 MMOL/L (-2.5-2.5); ABG HCO3 9.1 MMOL/L (20-26); ABG Oxygen Saturation 97.8 % (95-100); ABG PCO2 30.2 MM HG (35-48); ABG PO2 156.8 MM HG (80-95); ABG TCO2 10.1 MMOL/L (23-27); Allen Test Positive; Pt O2 Delivery Device Ventilator
[2017-03-05 00:35] LABS: ABG PH 7.098 (7.35-7.45)
[2017-03-05] MEDS ORDERED: NOREPINEPHRINE 4 MG/4 ML VIAL IV ONE (00:46)
[2017-03-05] MEDS ORDERED: SODIUM BICARBONATE 50 MEQ/50 ML SYRINGE IV ONE ×2 (00:47→00:48)
[2017-03-05] MEDS ORDERED: SODIUM CHLORIDE 0.9% 1,000 ML IV ONE ×2 (00:59→02:12)
[2017-03-05] MEDS: PROPOFOL 1,000 MG/100 ML BOTTLE IV SCH ×3 (01:03→19:42)
[2017-03-05] MEDS: NOREPINEPHRINE 8 MG in SODIUM CHLORIDE 0.9% 242 ML IV SCH ×2 (01:04→14:31)
[2017-03-05] MEDS: SODIUM BICARB INJ 100 MEQ in DEXTROSE 5% 1,000 ML IV SCH ×2 (01:22→21:25)
[2017-03-05] MEDS: ERTAPENEM 1,000 MG in SODIUM CHLORIDE 0.9% 100 ML IV SCH (01:22)
[2017-03-05 03:06] LABS: ABG Base Excess -16.7 MMOL/L (-2.5-2.5); ABG HCO3 11.9 MMOL/L (20-26); ABG Oxygen Saturation 98.5 % (95-100); ABG PCO2 22.4 MM HG (35-48); ABG PH 7.238 (7.35-7.45); ABG TCO2 8.9 MMOL/L (23-27); Allen Test Positive; Pt O2 Delivery Device Ventilator
[2017-03-05 03:35] LABS: Basophils % 0.1 % (0.0-0.8); Hematocrit 30.6 VOL% (42.0-52.0); Hemoglobin 9.8 GM/DL (14.0-18.0); Immature Granulocytes % 0.3 %; Immature Granulocytes Absolute 0.04 #; Lymphocytes # 0.2 10*3/uL (1.4-4.0); Lymphocytes % 1.8 % (21.2-54.2); Mean Corpuscular Hemoglobin 28 PG (27-34); Mean Corpuscular Volume 87.4 FL (87-102); Mean Platelet Volume 11.3 FL (9.6-12.0); Monocytes # 0.8 10*3/uL (0.11-0.8); Monocytes % 5.8 % (1.7-12.7); Neutrophils # 12.2 10*3/uL (1.4-7.4); Platelet Count 471 T/CUMM (130-400); Red Cell Distribution Width 15.9 % (9.3-17.3); White Blood Count 13.2 T/CUMM (4-12)
[2017-03-05 04:02] LABS: Alanine Aminotransferase < 9 U/L (16-61); Albumin 1.9 G/DL (3.4-5.0); Alkaline Phosphatase 79 U/L (45-117); Aspartate Amino Transferase 15 U/L (0-37); Blood Urea Nitrogen 99 MG/DL (7-18); Calcium 7.5 MG/DL (8.5-10.1); Glucose 243 MG/DL (74-106); Osmolality,Calculated 315.5 MOS/KG (273-304); Potassium 4.4 MMOL/L (3.5-5.1); Sodium 139 MMOL/L (136-145); Total Protein 4.3 G/DL (6.4-8.3)
[2017-03-05] MEDS ORDERED: SODIUM CHLORIDE 0.9% 2,000 ML IV ONE (04:16)
[2017-03-05 04:19] LABS: Risk Ratio 4.25; Thyroid Stimulating Hormone 1.73 uIU/ml (0.358-3.74)
[2017-03-05] MEDS: DILTIAZEM INJ 100 MG in SODIUM CHLORIDE 0.9% 100 ML IV SCH ×2 (04:34→14:01)
[2017-03-05] MEDS ORDERED: HYDROmorphone 2 MG/1 ML VIAL IV ONE (05:05)
[2017-03-05 05:23] LABS: Anisocytosis 1+; Band Neutrophils 12 % (0-10); Lymphocytes 3 % (20-55); Myelocytes 3 %; Segmented Neutrophils 82 % (50-85); Total Cells Counted 100
[2017-03-05 05:24] LABS: Hypochromasia Slight; Platelet Estimate Normal; Tear Drop Cells Few
[2017-03-05] MEDS ORDERED: ALBUMIN 25% 12.5 GM in PREMIX 1 EACH IV ONE (07:30)
--- NOTE | 2017-03-05 08:54 | EKG Report ---
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
--- NOTE | 2017-03-05 09:37 | Nephrology Progress Note ---
Nephrology - PN: Subj Interval history: He underwent laparotomy with partial colectomy last p.m. He had a cecal perforation. He is in the ICU on the ventilator. He is requiring pressor support. He is oliguric. Exam (PN)-Nephrology - Vital Signs Vital signs: Period Temp Pulse Resp BP Sys/Florez Pulse Ox Last 24 Hr 97.5 F-99.0 F 65-126 13-38 72-162/38-99 94-100 Exam: Gen.: Sedated on ventilator ENT: Pupils equal round reactive to light. Neck: Supple. No JVD or bruit. Cardiovascular: Regular rate and rhythm. No murmur rub or gallop Lungs: Clear Abdomen: Surgical dressing in place. Bowel sounds absent Extremities: No edema - Lab 03/05/17 03:15 03/05/17 03:15 Most recent lab results ABG pH 7.238 (7.35-7.45) L 03/05/17 03:00 ABG pCO2 22.4 MM HG (35-48) L 03/05/17 03:00 ABG pO2 267.0 MM HG (80-95) H 03/05/17 03:00 ABG HCO3 11.9 MMOL/L (20-26) L 03/05/17 03:00 ABG O2 Saturation 98.5 % (95-100) 03/05/17 03:00 Calcium 7.5 MG/DL (8.5-10.1) L 03/05/17 03:15 Assessment and Plan (1) Chronic renal failure Status: Acute Assessment and plan: 71-year-old man with: * CRF stage IV * Acute on chronic renal failure. He is oliguric. Metabolic acidosis present. Bicarbonate added to IV fluid. He may require dialysis soon * Large bowel obstruction. Probable colon cancer. * Diabetes mellitus * Hypertension * PTSD Current Visit: Yes (2) Large bowel obstruction Status: Acute Current Visit: Yes (3) Hypertension Status: Acute Current Visit: No (4) Post traumatic stress disorder (PTSD) Status: Acute Current Visit: No (5) Type 2 diabetes mellitus Status: Acute Current Visit: No
--- NOTE | 2017-03-05 09:50 | XRay Report ---
Portable chest March 05, 2017 Indication: Difficulty breathing Comparison images from previous day at 1916 hours Findings: Interval satisfactory intubation and right central venous line placement. Esophageal gastric tube has been placed poorly visualized past the esophageal hiatus. Chronic granulomatous changes are noted bilaterally. Lungs are otherwise clear. No acute osseous abnormalities. Impression: 1. Technically successful intubation and right central line placement 2. Distal aspect of the esophageal gastric tube not clearly visualized below the esophageal hiatus. If clinically concerned for catheter placement, limited abdomen could be performed 3. No active pulmonary process is appreciated PROCEDURE INTERPRETED AT [facility] DEPARTMENT OF RADIOLOGY Final Report Signed by: Artem Grant
[2017-03-05] MEDS: INSULIN LISPRO 100 UNIT/ML SUBCUT SCH ×4 (10:18→21:19)
--- NOTE | 2017-03-05 10:48 | Pulmonology Consult Note ---
History of Present Illness Chief complaint: Ventilator. Bowel obstruction. History of present illness: Mr. Allred is a 71 year old male whom I been asked to see in pulmonary consultation for evaluation and treatment and for management of mechanical ventilation. This patient was admitted with 3-4 week history of constipation. He said that his abdomen hurt and the pains were sharp and they radiated from side to side. He had not taken any pain medicines. He denied chest pain and nausea and vomiting. He denied chills fever night sweats. The remainder of his review of systems were negative. Allergies. None Medicines. [place]. Prilosec. Norvasc. Cymbalta 30 mg at bedtime and 60 mg in the morning. Neurontin 100 mg 3 times a day. Levemir insulin 40 units at bedtime. Magnesium 64 mg daily. Sonata 5 mg at bedtime. Tegretol 200 mg twice daily. Hydralazine 50 mg 3 times daily. Past history high blood pressure. Heart disease. Past history of congestive heart failure. History of chronic renal failure followed by Dr. Lake and he. History of significant depression. Past history of TIA. Insulin-dependent diabetes mellitus. History of gout and a history of rheumatoid arthritis. Obstructive sleep apnea. Gastroesophageal reflux disease. Social history. Patient was accompanied to the hospital by his daughter. He never smoked. He does not use alcohol or drugs. He lives alone. Family history. Positive for diabetes, heart disease, high blood pressure. His mother had lung cancer she had a stroke. Chest x-ray. 03/04/2017. My interpretation. Heart is at the upper limits of normal. Dense benign calcifications both hilar areas. Pulmonary arteries appear to be normal. Calcification of aortic knob. Slight deviation of the distal trachea to the right. Scattered 5 lobe punctate calcifications compatible with old histoplasmosis. No masses. No infiltrates. No congestive heart failure ABGs. Mechanical ventilation. FiO2 60%. PH 7.238, PCO2 22.4, PO2 [address] of the pelvis and abdomen. High-grade partial colonic obstruction at the mid to distal descending colon. Occult malignancy suspected. Ascites. Cholelithiasis. Microbiology. No reports. Lab. Admit white count was 12,788.46. H&H 11.1/35.3. Platelets are 525,000. Electrolytes were normal. Creatinine was 8.50 with a BUN of 103. Lactic acid was 1.1. Total protein 7.5. Albumin was low at 3.0 and globulin was up to 4.5. Lipase was normal. Thyroid function tests were normal. CEA was elevated 11.4. Physical exam. Vital signs see below Neurologic. Patient sedated I cannot do an exam. The nurses tell me that when he is awake he moves all fours. Face. Symmetrical. No edema of the lips or tongue. Neck. Symmetrical. Kyphotic. No masses and no meningismus. Lymphatics. No submandibular cervical or supraclavicular adenopathy. Chest. Slight large airway congestion. No wheeze no stridor no rales Heart. I do not hear a gallop murmur or rub. Abdomen. Postop and rectal. Deferred Extremities. No deep venous thrombophlebitis Arterial exam. Carotids. Decreased. Upper extremity pulses palpable. Lower extremity pulses nonpalpable. Venous exam. Neck. Upper extremities. Lower extremities. No abnormalities noted The remainder the physical exam is negative Impression. 1. Acute bowel obstruction secondary to a mass. Suspect cancer. Postop with a second operation a follow-up. 2. Chronic renal failure. Followed by Dr. Lake and he 3. High blood pressure 4. Heart disease with past history of congestive heart failure 5. Insulin-dependent diabetes mellitus 6. Gastroesophageal reflux disease 7. History of significant depression 8. See past history Plan. 1. I have reviewed orders and agree with them. I made no changes. 2. Mechanical ventilation weaning protocol. Will not be able to advance very far as follow-up surgery is planned tomorrow or the next day 3. Mechanical ventilation physical therapy protocol. #4. Proton pump inhibitor protocol 5. Deep venous thrombophlebitis prevention protocol Home Medications Medication Instructions Recorded Confirmed Type Aspirin [Ecotrin] 81 mg PO DAILY 02/04/15 10/22/15 History HYDROcodone/ACETAMIN 5-325 [[place] 1 tablet PO Q6H #20 tablet 02/04/15 10/24/15 Rx 5-325] Lisinopril 30 mg PO DAILY 02/04/15 10/22/15 History Omeprazole [Prilosec] 20 mg PO DAILY 02/04/15 10/22/15 History amLODIPine [Norvasc] 10 mg PO DAILY 10/22/15 10/22/15 History DULoxetine [Cymbalta] 30 mg PO BEDTIME #30 capsule 11/03/15 Rx Duloxetine HCl [Cymbalta] 60 mg PO DAILY #30 capsule 11/03/15 Rx Gabapentin Cap/Tab [Neurontin 100 mg PO TID #90 capsule 11/03/15 Rx Cap/Tab] Insulin Detemir [Levemir] 40 unit SUBCUT BEDTIME #1 vial 11/03/15 Rx Insulin Lispro [HumaLOG] See Protocol SUBCUT TID W/MEALS #1 11/03/15 Rx vial Magnesium Chloride [Slow Mag] 64 mg PO DAILY #30 tablet 11/03/15 Rx Zaleplon [Sonata] 5 mg PO BEDTIME PRN #30 capsule 11/03/15 Rx carBAMazepine TAB [TEGretol TAB] 200 mg PO BID #60 tablet 11/03/15 Rx hydrALAZINE TAB [Apresoline Tab] 50 mg PO TID #90 tablet 11/03/15 Rx Allergies Allergy/AdvReac Type Severity Reaction Status Date / Time No Known Allergies Allergy Verified 03/04/17 12:55 Exam (Pulmonay) H&P - Constitutional Vitals: Period Temp Pulse Resp BP Sys/Florez Pulse Ox Last 24 Hr 97.5 F-99.0 F 65-126 13-38 72-162/38-99 94-100 Medical,Surgical,& Family Hx - Medical History Cardio: History of: CHF, Hypertension, Cardiovascular Problems Psychological: History of: Depression, Psychiatric Problems (depressed mood aeb feelings of helplessness and hopelessness, worthlessness) No history of: Anxiety Disorders, ADHD, Behavior Problems, Bipolar Disorder, Previous Suicide Attempt, Psychiatric/Substance Abuse Tx, Schizophrenia, Violent Behavior Neurology: History of: TIA HEENT: No history of: Ear Problem, Eye Problem, Dental Problems, Glaucoma, Oral Cancer, HEENT Problems Endocrine: History of: Diabetes Mellitus (IDDM) No history of: Adrenal Disease, Diabetes Mellitus (NIDDM), Thyroid Disorder, Endocrine Cancer, Endocrine Problems Rheumatology: History of;: Gout, Rheumatoid Arthritis, Rheumatological Problems No history of;: Fibromyalgia, Myasthenia Gravis, Psoriasis, Sjogrens, Systemic Lupus Erythematosus Respiratory: History of: Asthma, Obstructive Sleep Apnea, Pneumonia, Respiratory Problems Renal: History of: Renal Failure, Renal Problems (CRF, GOUT) No history of: Renal (Kidney) Cancer, Dialysis Genitourinary: History of: Problems No history of: Bladder Problem, Kidney Stones, Prostate Problems, Recurring Urinary Tract Infections, Genitourinary Cancer Gastrointestinal: History of: GERD, GI Problems No history of: Bowel Obstruction, Clostridium Difficile, Crohn's Disease, Diverticulitis/ Diverticulosis, Esophageal Varices, Gastrointestinal Bleed, Hemorrhoids, Hematochezia, Hepatitis, Liver Problems, Pancreatitis, Polyps, Ulcerative Colitis, Gastrointestinal Cancer Musculoskeletal: History of: Back/Neck Problems, Musculoskeletal Problems No history of: Amputation, Degenerative Disk Disease, Herniated Disk, Osteoporosis, Musculoskeletal Cancer Hematology: No history of: Anemia, Blood Transfusion Reaction, Bleeding Problems, Clotting Problems, Sickle Cell Disease, Hematologic Cancer, Blood Disorders Other: No history of: Anesthesia Reactions, Anaphylaxis, Cancer, Eczema, HIV, Malignant Hyperthermia, MRSA, Vancomycin-Resistant Enterococci, Skin Problems, Miscellaneous Medical Problems - Surgical History Cardiac Surgeries: Patient Denies: Femoral-Popliteal Bypass Graft, Cardiac Catheterization, Cardiac Surgery, Internal Defibrillator, Vascular Access Devices Thoracic Surgeries: Patient denies;: Kidney (Renal Surgery), Lithotripsy, Nephrectomy, Organ Transplant, Lobectomy Neurologic Surgeries: Patient denies: Neurologic Surgery HEENT Surgeries: Patient denies: Eye Surgery, Thyroid Surgery, Tonsilectomy & Adenoidectomy Abdominal Surgeries: Patient denies: Abdominal Surgery, Appendectomy, Cholecystectomy, Colonoscopy , Gastric Bypass Surgery, EGD, Hernia Repair, Splenectomy Reproductive Surgeries: Patient denies;: Cystoscopy, Genitourinary Surgery, Prostate Surgery Orthopedic Surgeries: Surgical HX of;: Total Hip Replacement Patient denies;: Implanted Devices, Orthopedic Surgery, Spinal Surgery, Total Knee Replacement - Family History Family History: Reports;: Family Diabetes, Family Heart Disease, Family Hypertension, Family Stroke (mom - lung cancer) Denies;: Family Anesthesia Reaction, Family Cancer, Family Psychiatric Problems - Social History Smoking Status: Never smoker Frequency of Alcohol Use: None Type of Drug Use: None Results - Labs CBC & BMP: 03/05/17 03:15 03/05/17 03:15
[2017-03-05] MEDS: MORPHINE 2 MG/1 ML SYRINGE IV PRN (11:00)
--- NOTE | 2017-03-05 12:41 | Hospitalist Progress Note ---
Assessment and Plan (1) Large bowel obstruction Status: Acute Assessment and plan: Dr. Haywood performs a exploratory lap with partial colectomy and repair of a cecal perforation with decompression of large bowel in mobilization of splenic flexure. Colonic mass and elevated cea c/w colon cancer Current Visit: Yes (2) Acute respiratory failure Status: Acute Assessment and plan: Will rest on the vent overnight. Plans to take him back to surgery tomorrow to close wound. Dr. Jalloh is managing the vent. Current Visit: Yes (3) Leukocytosis Status: Acute Assessment and plan: No concrete evidence of infection, white count has improved with continue Invanz for now. blood cx X2 pending, chest xray negative, UA negative, Current Visit: Yes (4) Anemia Status: Acute Assessment and plan: will cont to monitor cont protonix Current Visit: Yes (5) Acute on chronic renal failure Status: Acute Assessment and plan: Due to dehydration. Baseline creatinine of 5. Ultrasound of kidneys shows echogenic kidneys with underlying medical renal disease with large cysts. Dialysis catheter placed poor urine output despite adequate CVP pressure most likely will begin dialysis soon. Dr. Herndon monitoring Current Visit: Yes (6) Hypotension Status: Acute Assessment and plan: Continue pressors wean as tolerated to keep systolic greater than 80. Current Visit: Yes (7) Metabolic acidosis Status: Acute Assessment and plan: Due to renal failure bicarb in fluids. Current Visit: Yes (8) Diabetes Status: Acute Assessment and plan: Hemoglobin A1c 7.9, continue insulin sliding scale, no tube feeding for now. Current Visit: Yes (9) Atrial flutter Status: Acute Assessment and plan: Wean off tilt drip. No anticoagulation for now. Current Visit: Yes Hospitalist: Subjective Interval history: Discussed patient's case with both Dr. Haywood and Dr. Herndon. Dr. Herndon would like to hold off on dialysis for now. Patient has had very little urine output. He is currently on pressors. He went into atrial flutter with rapid ventricular response and is on the diltiazem drip. Asked them to wean that down and possibly off his lung as his heart rate stays within the 130s and would not put him back on a diltiazem drip. Patient is also sedated with diprivan. Patient is intubated and has a CVP pressure of 12. He is on fluids at 50 with bicarb. A dialysis catheter was placed by Dr. Haywood during surgery. Dr. Haywood he had said that he did find a small mass that look like cancer. Exam - Constitutional Vitals: Period Temp Pulse Resp BP Sys/Florez Pulse Ox Last 24 Hr 97.5 F-99.0 F 57-126 13-38 72-162/38-99 94-100 Exam: Heart Rate-[IRR] Lungs-[rhonchi] GI-[diminished bs wound vac only Ext-[no edema, scd] Neuro sedated and intubated cannot assess psych sedated and intubated cannot assess General [no acute distress] Results - Labs CBC & BMP: 03/05/17 03:15 03/05/17 03:15 Lab Results: I have reviewed the past 24 hour labs Labs: Hemoglobin A1c 7.9
--- NOTE | 2017-03-05 12:54 | Event Note ---
Afebrile vital signs stable. Patient received several IV fluid boluses overnight. He still not making any urine. His Levophed is being weaned. CVP is being maintained around 8-12. His creatinine is a little bit better at 8.2. Base deficit is slightly improved. His post surgery CEA was 11.4. Abdominal wound VAC is in place. There is a good seal. We will continue volume support. He is probably going to require dialysis. Plan for second look laparotomy if he continues to improve tomorrow. Probable colostomy at that time. This was discussed with the family last night after the procedure.
[2017-03-06] MEDS: PROPOFOL 1,000 MG/100 ML BOTTLE IV SCH ×4 (00:02→23:36)
[2017-03-06] MEDS: SODIUM BICARB INJ 100 MEQ in DEXTROSE 5% 1,000 ML IV SCH (00:03)
[2017-03-06] MEDS: NOREPINEPHRINE 8 MG in SODIUM CHLORIDE 0.9% 242 ML IV SCH ×4 (00:24→23:32)
[2017-03-06] MEDS: ERTAPENEM 1,000 MG in SODIUM CHLORIDE 0.9% 100 ML IV SCH (01:26)
[2017-03-06 02:37] LABS: ABG Base Excess -13.1 MMOL/L (-2.5-2.5); ABG HCO3 11.4 MMOL/L (20-26); ABG Oxygen Saturation 98.5 % (95-100); ABG PCO2 22.6 MM HG (35-48); ABG PH 7.321 (7.35-7.45); ABG PO2 246.6 MM HG (80-95); ABG TCO2 12.1 MMOL/L (23-27); Allen Test Positive; Pt O2 Delivery Device Ventilator
[2017-03-06] MEDS: DILTIAZEM INJ 100 MG in SODIUM CHLORIDE 0.9% 100 ML IV SCH (05:05)
[2017-03-06 05:15] LABS: Basophils % 0.1 % (0.0-0.8); Hematocrit 26.7 VOL% (42.0-52.0); Hemoglobin 8.8 GM/DL (14.0-18.0); Immature Granulocytes % 0.3 %; Immature Granulocytes Absolute 0.04 #; Lymphocytes # 0.3 10*3/uL (1.4-4.0); Lymphocytes % 2.7 % (21.2-54.2); Mean Corpuscular Hemoglobin 28 PG (27-34); Mean Corpuscular Volume 83.4 FL (87-102); Mean Platelet Volume 11.8 FL (9.6-12.0); Monocytes # 0.8 10*3/uL (0.11-0.8); Monocytes % 6.6 % (1.7-12.7); NRBC # 0.02 10*3/uL; Neutrophils # 10.9 10*3/uL (1.4-7.4); Neutrophils % 90.3 % (38.7-73.9); Platelet Count 294 T/CUMM (130-400); Red Cell Distribution Width 15.8 % (9.3-17.3)
[2017-03-06 05:44] LABS: Alanine Aminotransferase 10 U/L (16-61); Albumin 1.7 G/DL (3.4-5.0); Alkaline Phosphatase 67 U/L (45-117); Aspartate Amino Transferase 22 U/L (0-37); Bilirubin,Total < 0.39 MG/DL (0.2-1.0); Blood Urea Nitrogen 104 MG/DL (7-18); Calcium 8.4 MG/DL (8.5-10.1); Glucose 198 MG/DL (74-106); Osmolality,Calculated 313.7 MOS/KG (273-304); Potassium 4.3 MMOL/L (3.5-5.1); Sodium 138 MMOL/L (136-145); Total Protein 4.2 G/DL (6.4-8.3)
[2017-03-06 06:09] LABS: Band Neutrophils 4 % (0-10); Lymphocytes 6 % (20-55); Myelocytes 1 %; Platelet Estimate Normal; Segmented Neutrophils 86 % (50-85); Total Cells Counted 100
[2017-03-06] MEDS: MORPHINE 2 MG/1 ML SYRINGE IV PRN ×2 (07:40→14:50)
[2017-03-06] MEDS ORDERED: SODIUM CHLORIDE 0.9% 250 ML IV PRN (08:39)
[2017-03-06] MEDS: INSULIN LISPRO 100 UNIT/ML SUBCUT SCH ×4 (08:43→20:37)
--- NOTE | 2017-03-06 10:11 | Nephrology Progress Note ---
Nephrology - PN: Subj Interval history: He is on the ventilator. He is requiring norepinephrine at 12 mcg/min. Urine output approximately 500 cc per 24 hours Exam (PN)-Nephrology - Vital Signs Vital signs: Period Temp Pulse Resp BP Sys/Florez Pulse Ox Last 24 Hr 96.8 F-98.4 F 57-99 14-24 82-146/49-99 96-100 Exam: Gen.: Sedated on ventilator ENT: Pupils equal round reactive to light. Neck: Supple. No JVD or bruit. Cardiovascular: Regular rate and rhythm. No murmur rub or gallop Lungs: Clear Abdomen: Wound VAC in place Extremities: No edema - Lab 03/06/17 04:34 03/06/17 04:34 Most recent lab results ABG pH 7.321 (7.35-7.45) L 03/06/17 02:35 ABG pCO2 22.6 MM HG (35-48) L 03/06/17 02:35 ABG pO2 246.6 MM HG (80-95) H 03/06/17 02:35 ABG HCO3 11.4 MMOL/L (20-26) L 03/06/17 02:35 ABG O2 Saturation 98.5 % (95-100) 03/06/17 02:35 Calcium 8.4 MG/DL (8.5-10.1) L 03/06/17 04:34 Assessment and Plan (1) Chronic renal failure Status: Acute Assessment and plan: 71-year-old man with: * CRF stage IV * Acute on chronic renal failure. Increased bicarbonate in IV fluid. Probable dialysis tomorrow * Large bowel obstruction. Probable colon cancer. Repeat laparotomy today * Diabetes mellitus * Hypertension * PTSD Current Visit: Yes (2) Large bowel obstruction Status: Acute Current Visit: Yes (3) Hypertension Status: Acute Current Visit: No (4) Post traumatic stress disorder (PTSD) Status: Acute Current Visit: No (5) Type 2 diabetes mellitus Status: Acute Current Visit: No
[2017-03-06] MEDS: SODIUM BICARB INJ 150 MEQ in STERILE WATER INJ 1,000 ML IV SCH (10:40)
--- NOTE | 2017-03-06 10:42 | Event Note ---
Patient remained stable. He is on small amount of pressor support. His blood pressure is being maintained at approximately 120 systolic. He is on Cardizem drip for A. fib. He remains intubated and sedated. His abdomen is soft with the VAC in place with a good seal. White blood cell count normal. Creatinine noted. Plan for second look laparotomy today. Family has not returned since his operation was completed 2 days ago.
--- NOTE | 2017-03-06 11:16 | Pulmonology Progress Note ---
Pulmonary - PN: Subj Interval history: This is a 71-year-old white male whom I saw in pulmonary consultation 03/05/2017. He was postop abdominal surgery for obstruction secondary to colon cancer. My impressions were. 1. Acute bowel obstruction secondary to a mass. Suspect cancer. Postop with a second operation a follow-up. 2. Chronic renal failure. Followed by Dr. Lake and he 3. High blood pressure 4. Heart disease with past history of congestive heart failure 5. Insulin-dependent diabetes mellitus 6. Gastroesophageal reflux disease 7. History of significant depression 8. See past history 03/06/2017. This patient has done well and stabilized overnight. He has severe renal failure with metabolic acidosis. I have compensated for this with hyperventilation with mechanical ventilation. Dr. Bird Herndon is on the case from renal standpoint. ABGs on mechanical ventilation and FiO2 of 60% shows a pH of 7.32. PCO2 is 22.6. PO2 is 246 and bicarb is very low at 11.4. Creatinine is 9.4 with a BUN of 104. Sodium potassium are normal and chloride is 108. Serum osmolality is 313.7. Total protein is 4.2 and albumin is 1.7 globulins at 2.5 thyroid function tests are normal. H&H is 8.8/26.7. I have ordered 1 unit of blood. White count is 12,000 and platelets of 294. Dr. Mike Jaime and I have discussed the case today I think we can proceed with follow- up surgery today. Patient course is at risk but this is probably an opportune time to do it and his risk are not going to decrease anytime soon. Physical exam. Vital signs. See below Psychiatric. Sedated. Neurological. No C movement in all 4 extremities. Chest. Fairly clear Heart. No gallop Abdomen. Postsurgical Extremities nothing to suggest deep venous thrombophlebitis Face is symmetrical with no edema of the lips and tongue Neck symmetrical. No evidence of meningismus. The remainder the physical exam is noncontributory and negative Plan. 03/05/2017 1. I have reviewed orders and agree with them. I made no changes. 2. Mechanical ventilation weaning protocol. Will not be able to advance very far as follow-up surgery is planned tomorrow or the next day 3. Mechanical ventilation physical therapy protocol. #4. Proton pump inhibitor protocol 5. Deep venous thrombophlebitis prevention protocol 03/06/2017 1. See today's note above 2. Surgery today 3. Restart weaning protocol postop 3. This patient needs alveolar hyperventilation in the perioperative period and until his metabolic acidosis is corrected. Exam (Progress Note) - Constitutional Vitals: Period Temp Pulse Resp BP Sys/Florez Pulse Ox Last 24 Hr 96.8 F-98.4 F 64-99 14-24 82-146/49-99 10-100 Results - Labs CBC & BMP: 03/06/17 04:34 03/06/17 04:34
[2017-03-06] MEDS ORDERED: ROCURONIUM 100 MG/10 ML VIAL IV ONE (11:25)
[2017-03-06] MEDS ORDERED: PHENYLEPHRINE 1 MG/10 ML SYRINGE IV ONE (11:25)
--- NOTE | 2017-03-06 12:43 | Operative Note ---
Date of procedure: 03/06/17 Pre-op diagnosis: Open abdomen after laparotomy and colon resection Post-op diagnosis: same Procedure: Procedure performed #1 reexploration of recent laparotomy #2 partial colectomy with end colostomy Procedure in detail: After informed consent was obtained, patient was taken operating suite lies upon the operating table. After induction of anesthesia the abdominal VAC was removed and the abdomen was prepped and draped in usual sterile fashion. After procedural pause the inner VAC drape was removed in its entirety and the abdominal cavity was examined. There was some serous fluid with fibrinous debris throughout the abdomen which was thoroughly irrigated. The end of the transverse colon appeared nonviable and ischemic with a sharp line of demarcation approximately 10 cm proximal to the staple line. This portion of bowel was then divided with a CARLOS stapling device and normal healthy appearing colon and the ischemic portion was removed and passed off the field. The repair of the cecal perforation was inspected and it looked good with no leakage. The repair was imbricated with 2-0 silk suture. The abdomen was thoroughly irrigated and suctioned until the irrigant remained clear. There was excellent hemostasis. The remaining bowel including the sigmoid staple line and rectum all appeared healthy and viable. NG tube confirmed in the stomach. Liver gallbladder and appendix appeared normal for the reactive process in the abdomen. The end of the transverse colon was brought through a circular incision in the right upper quadrant. It was secured to the fascia using 3-0 Vicryl interrupted suture. The midline fascia was then closed with # 1 Running Loop PDS. Midline wound was thoroughly irrigated and suctioned and then packed with damp Kerlix gauze. Sterile dressing applied. The colostomy was then matured using 3-0 interrupted Vicryl suture. The stoma appeared healthy and viable. Stoma appliance applied and the patient was left intubated and taken back to the recovery room in ICU with no significant change in his all condition. Lap and needle counts correct at the end of the case. Anesthesia: GETA Surgeon / Physician: Michael Haywood Estimated blood loss: other (Less than 10 cc) Specimens: other (Portion of transverse colon) Condition: stable Disposition: PACU Results - Labs CBC & BMP: 03/06/17 04:34 03/06/17 04:34 Discharge Plan - Discharge Medications No Action Omeprazole [Prilosec] 20 mg PO DAILY Lisinopril 30 mg PO DAILY Aspirin [Ecotrin] 81 mg PO DAILY HYDROcodone/ACETAMIN 5-325 [[place] 5-325] 1 tablet PO Q6H #20 tablet amLODIPine [Norvasc] 10 mg PO DAILY DULoxetine [Cymbalta] 30 mg PO BEDTIME #30 capsule Gabapentin Cap/Tab [Neurontin Cap/Tab] 100 mg PO TID #90 capsule Insulin Detemir [Levemir] 40 unit SUBCUT BEDTIME #1 vial Insulin Lispro [HumaLOG] See Protocol SUBCUT TID W/MEALS #1 vial Magnesium Chloride [Slow Mag] 64 mg PO DAILY #30 tablet Zaleplon [Sonata] 5 mg PO BEDTIME PRN #30 capsule PRN Reason: Sleep hydrALAZINE TAB [Apresoline Tab] 50 mg PO TID #90 tablet Duloxetine HCl [Cymbalta] 60 mg PO DAILY #30 capsule carBAMazepine TAB [TEGretol TAB] 200 mg PO BID #60 tablet - Follow Up or Referral - Forms/Instructions
--- NOTE | 2017-03-06 13:05 | Anesthesia Post-Op ---
Anesthesia Post OP - Post Ansesthetic Evaluation Patient seen in post op: Yes Resp: other (vent) CV: other (levophed infus) Mental: other (sedated) Temp: within normal limits [id number]: within normal limits Nausea and Vomiting: within normal limits Pain: within normal limits Other:: na bicarb infus
[2017-03-06] MEDS ORDERED: SEVOFLURANE 1 UNIT/15 MINUTE INH ONE (13:53)
[2017-03-06] MEDS ORDERED: MIDAZOLAM 2 MG/2 ML VIAL ONE (13:54)
--- NOTE | 2017-03-06 15:43 | Hospitalist Progress Note ---
Assessment and Plan (1) Large bowel obstruction Status: Acute Assessment and plan: Patient was taken back to the OR for reexploratory laparotomy with partial colectomy and end colostomy. We will have to consider starting TPN tomorrow. Current Visit: Yes (2) Acute respiratory failure Status: Acute Assessment and plan: Oxygenation is good on the vent today. Patient has worsening acidosis due to deteriorating renal function. Most likely have to dialyze soon Current Visit: Yes (3) Anemia Status: Acute Assessment and plan: Hemoglobin decreasing continue to monitor continue Protonix Current Visit: Yes (4) Acute on chronic renal failure Status: Acute Assessment and plan: Worsening renal function most likely secondary to illness and dehydration and hypotension. Dr. Herndon is managing. Most likely need dialysis soon. Current Visit: Yes (5) Hypotension Status: Acute Assessment and plan: Continue pressors Current Visit: Yes (6) Metabolic acidosis Status: Acute Assessment and plan: Worsening acidosis continue bicarbonate and fluids. Will need dialysis soon. Current Visit: Yes (7) Diabetes Status: Acute Assessment and plan: Hemoglobin A1c 7.9, continue insulin sliding scale, will need to start TPN tomorrow, blood sugars are not well controlled. Currently not receiving any nutrition but is on diprivan Current Visit: Yes (8) Atrial flutter Status: Acute Assessment and plan: Patient was weaned off diltiazem but remains in atrial fib. To high risk for anticoagulation at this time. Current Visit: Yes (9) Gram negative septicemia Status: Acute Assessment and plan: Currently on pressors, white count down to 12. Continue Invanz. Blood cultures growing gram-negative rods identity pending. Current Visit: Yes Hospitalist: Subjective Interval history: Still no family to visit Mr. Allred. Patient was taken back to the OR today to close his abdominal wound and place a colostomy. Patient remains on pressors. His blood cultures turned positive for gram-negative rods yesterday. Already on antibiotics. PO2 on blood gas look good today. Patient has worsening renal failure. Currently in Afib, Dr. Herndon has added more bicarb to his fluids but is not dialyzing him at this time. BUN and creatinine continue to worsen. Want to keep his blood pressure over 100 systolic. Urine output is poor. Exam - Constitutional Vitals: Period Temp Pulse Resp BP Sys/Florez Pulse Ox Last 24 Hr 96.8 F-98.4 F 64-101 14-24 92-146/55-99 10-100 Exam: Heart Rate-[IRR] Lungs-[rhonchi] GI-[diminished bs wound vac only Ext-[no edema, scd] Neuro sedated and intubated cannot assess psych sedated and intubated cannot assess General [no acute distress] Results - Labs CBC & BMP: 03/06/17 04:34 03/06/17 04:34 Lab Results: I have reviewed the past 24 hour labs Labs: Blood cultures 1 out of 2 growing gram-negative rods.
[2017-03-06] MEDS: PANTOPRAZOLE 40 MG VIAL IV SCH (17:00)
[2017-03-07] MEDS: NOREPINEPHRINE 8 MG in SODIUM CHLORIDE 0.9% 242 ML IV SCH ×2 (01:56→19:35)
[2017-03-07] MEDS: ERTAPENEM 1,000 MG in SODIUM CHLORIDE 0.9% 100 ML IV SCH (01:58)
[2017-03-07 03:09] LABS: ABG Base Excess -12.8 MMOL/L (-2.5-2.5); ABG HCO3 12.4 MMOL/L (20-26); ABG Oxygen Saturation 97.7 % (95-100); ABG PCO2 27.1 MM HG (35-48); ABG PH 7.279 (7.35-7.45); ABG PO2 123.2 MM HG (80-95); ABG TCO2 13.3 MMOL/L (23-27); Allen Test Positive; Pt O2 Delivery Device Ventilator
[2017-03-07 05:42] LABS: Basophils % 0.1 % (0.0-0.8); Eosinophils % 0.1 % (0.00-10.9); Hematocrit 30.5 VOL% (42.0-52.0); Immature Granulocytes % 0.6 %; Immature Granulocytes Absolute 0.11 #; Lymphocytes # 0.5 10*3/uL (1.4-4.0); Mean Corpuscular HGB Conc 32.8 GM/DL (32-36); Mean Corpuscular Hemoglobin 27 PG (27-34); Monocytes % 5.8 % (1.7-12.7); NRBC # 0.03 10*3/uL; Neutrophils # 15.9 10*3/uL (1.4-7.4); Neutrophils % 90.4 % (38.7-73.9); Platelet Count 279 T/CUMM (130-400); Red Blood Count 3.72 MC/CUMM (3.8-5.5); Red Cell Distribution Width 16.5 % (9.3-17.3); White Blood Count 17.6 T/CUMM (4-12)
[2017-03-07 06:10] LABS: Albumin 1.4 G/DL (3.4-5.0); Bilirubin,Total 0.9 MG/DL (0.2-1.0); Calcium 8.4 MG/DL (8.5-10.1); Osmolality,Calculated 312.5 MOS/KG (273-304); Potassium 4.7 MMOL/L (3.5-5.1); Total Protein 4.3 G/DL (6.4-8.3)
[2017-03-07 06:17] LABS: Band Neutrophils 1 % (0-10); Hypochromasia 1+; Lymphocytes 4 % (20-55); Segmented Neutrophils 92 % (50-85); Total Cells Counted 100
[2017-03-07 06:18] LABS: Acanthocytes Few; Microcytosis 1+; Ovalocytes Few
[2017-03-07 06:19] LABS: Platelet Estimate Normal
[2017-03-07] MEDS: SODIUM BICARB INJ 150 MEQ in STERILE WATER INJ 1,000 ML IV SCH (06:37)
[2017-03-07] MEDS: INSULIN LISPRO 100 UNIT/ML SUBCUT SCH ×2 (08:14→11:47)
[2017-03-07] MEDS: PANTOPRAZOLE 40 MG VIAL IV SCH (08:15)
--- NOTE | 2017-03-07 09:02 | XRay Report ---
Portable chest March 07, 2017 at 0306 hours Indication: Respiratory failure, desaturation Comparison images from March 05, 2017 at 0033 hours Findings: Tubes and lines remain in satisfactory position. Image quality degraded by motion artifact. Low lung volumes with increased stranding opacities within the lung bases, likely atelectasis. No acute osseous abnormalities. Impression: 1. Image quality degraded by motion artifact 2. Bibasilar atelectasis with overall low lung volumes PROCEDURE INTERPRETED AT [facility] DEPARTMENT OF RADIOLOGY Final Report Signed by: Artem Grant
--- NOTE | 2017-03-07 10:08 | Nephrology Progress Note ---
Nephrology - PN: Subj Interval history: He remains on the ventilator. He is hypotensive, requiring pressors. Exam (PN)-Nephrology - Vital Signs Vital signs: Period Temp Pulse Resp BP Sys/Florez Pulse Ox Last 24 Hr 97.2 F-97.9 F 70-110 12-24 92-144/56-99 96-100 Exam: Gen.: Sedated on ventilator ENT: Pupils equal round reactive to light. Neck: Supple. No JVD or bruit. Cardiovascular: Regular rate and rhythm. No murmur rub or gallop Lungs: Clear Abdomen: Wound VAC in place Extremities: No edema - Lab 03/07/17 05:29 03/07/17 05:29 Most recent lab results ABG pH 7.279 (7.35-7.45) L 03/07/17 02:42 ABG pCO2 27.1 MM HG (35-48) L 03/07/17 02:42 ABG pO2 123.2 MM HG (80-95) H 03/07/17 02:42 ABG HCO3 12.4 MMOL/L (20-26) L 03/07/17 02:42 ABG O2 Saturation 97.7 % (95-100) 03/07/17 02:42 Calcium 8.4 MG/DL (8.5-10.1) L 03/07/17 05:29 Assessment and Plan (1) Chronic renal failure Status: Acute Assessment and plan: 71-year-old man with: * CRF stage IV * Acute on chronic renal failure. He is oliguric. He remains acidotic. Creatinine now greater than 10. Arrangements for dialysis today with no volume removal have been made * Large bowel obstruction. Probable colon cancer. Repeat laparotomy today * Diabetes mellitus * Hypertension * PTSD Current Visit: Yes (2) Large bowel obstruction Status: Acute Current Visit: Yes (3) Hypertension Status: Acute Current Visit: No (4) Post traumatic stress disorder (PTSD) Status: Acute Current Visit: No (5) Type 2 diabetes mellitus Status: Acute Current Visit: No
--- NOTE | 2017-03-07 10:59 | Hospitalist Progress Note ---
Assessment and Plan (1) Large bowel obstruction Status: Acute Assessment and plan: s/p partial colectomy and end colostomy. We will start TPN today. Patient is currently on Invanz but his white count is rising. Current Visit: Yes (2) Acute respiratory failure Status: Acute Assessment and plan: Unable to wean off vent until starting dialysis. Current Visit: Yes (3) Anemia Status: Acute Assessment and plan: Hemoglobin stable continue proton Current Visit: Yes (4) Acute on chronic renal failure Status: Acute Assessment and plan: Now considered chronic renal failure dialysis will start today. It will be permanent. Continue IV fluids with bicarb. Current Visit: Yes (5) Hypotension Status: Acute Assessment and plan: Still requiring pressors Current Visit: Yes (6) Metabolic acidosis Status: Acute Assessment and plan: Worsening acidosis should improve with dialysis Current Visit: Yes (7) Diabetes Status: Acute Assessment and plan: Hemoglobin A1c 7.9, continue insulin sliding scale, will need to start TPN tomorrow, blood sugars will worsen after TPN started. Would recommend low dose of Lantus but do not know when TPN will be started. Current Visit: Yes (8) Atrial flutter Status: Acute Assessment and plan: Patient is too high risk for anticoagulation. He remains in atrial flutter. I do not want him in the dilt drip. Current Visit: Yes (9) Gram negative septicemia Status: Acute Assessment and plan: growing citrobacter farmeri which is sensitive to Invanz. We could not de- escalate that to Rocephin. But with his recent increase in white count I will continue the Invanz. Current Visit: Yes Hospitalist: Subjective Interval history: Dr. Herndon is seen patient and decided to start him on dialysis. Patient has had good stool output from his colostomy. His urine output is significantly diminished. Family still not come to see him. We will start him on TPN today. Exam - Constitutional Vitals: Period Temp Pulse Resp BP Sys/Florez Pulse Ox Last 24 Hr 97.2 F-97.9 F 70-111 12-24 92-144/56-99 96-100 Exam: Heart Rate-[tacky currently in a flutter] Lungs-[few crackles and diminished GI-[Good bs, alot of stool from colostomy Ext-[no edema, scd] Neuro sedated and intubated cannot assess psych sedated and intubated cannot assess General [no acute distress] Results - Labs CBC & BMP: 03/07/17 05:29 03/07/17 05:29 Lab Results: I have reviewed the past 24 hour labs Labs: Blood culture growing Citrobacter farmeri sensitive to invanz - Diagnostic Findings Procedure: Chest x-ray: report reviewed by me (Bilateral atelectasis)
[2017-03-07 11:13] LABS: Hepatitis A Ab IgM Quant 0.08 Index; Hepatitis A Ab IgM Result Negative (Negative); Hepatitis B Core IgM Quant 0.12 Index; Hepatitis B Core IgM Result Negative (Negative); Hepatitis B Surface Ag Quant 0.31 Index; Hepatitis B Surface Ag Result Negative (Negative); Hepatitis C Virus Ab Quant 0.02 Index; Hepatitis C Virus Ab Result Negative (Negative)
--- NOTE | 2017-03-07 11:57 | Event Note ---
Afebrile vital signs stable. Pressor support is largely unchanged. CVP remains about 13. Urine output is minimal. NG tube with green bilious aspirate. His abdomen is soft midline wound is clean. His stoma has had quite a bit of output likely residual. No bowel sounds. His distention since the most recent surgery is unchanged. Creatinine is elevated. Agree with TPN. Expect an ileus. Elevation in white count likely due to surgery from yesterday. Anticipate this will improve.
--- NOTE | 2017-03-07 12:24 | Pulmonology Progress Note ---
Pulmonary - PN: Subj Interval history: This is a 71-year-old white male whom I saw in pulmonary consultation 03/05/2017. He was postop abdominal surgery for obstruction secondary to colon cancer. My impressions were. 1. Acute bowel obstruction secondary to a mass. Suspect cancer. Postop with a second operation a follow-up. 2. Chronic renal failure. Followed by Dr. Lake and he 3. High blood pressure 4. Heart disease with past history of congestive heart failure 5. Insulin-dependent diabetes mellitus 6. Gastroesophageal reflux disease 7. History of significant depression 8. See past history 03/06/2017. This patient has done well and stabilized overnight. He has severe renal failure with metabolic acidosis. I have compensated for this with hyperventilation with mechanical ventilation. Dr. Bird Herndon is on the case from renal standpoint. ABGs on mechanical ventilation and FiO2 of 60% shows a pH of 7.32. PCO2 is 22.6. PO2 is 246 and bicarb is very low at 11.4. Creatinine is 9.4 with a BUN of 104. Sodium potassium are normal and chloride is 108. Serum osmolality is 313.7. Total protein is 4.2 and albumin is 1.7 globulins at 2.5 thyroid function tests are normal. H&H is 8.8/26.7. I have ordered 1 unit of blood. White count is 12,000 and platelets of 294. Dr. Mike Jaime and I have discussed the case today I think we can proceed with follow- up surgery today. Patient course is at risk but this is probably an opportune time to do it and his risk are not going to decrease anytime soon. 03/07/2017. Chest x-ray shows cardiomegaly. Pulmonary arteries are probably normal. There are benign calcifications of both hilar areas. Endotracheal tube is in good position. There is some right perihilar scarring and some of this may be in the major fissure. No masses. No definite infiltrates. No pneumothorax. This patient is on mechanical ventilation. I am having the hyperventilate to compensate for his metabolic acidosis. I am glad that he is going to get dialysis today. Good result will certainly help with the weaning process. On mechanical ventilation with FiO2 of 60% the pH is 7.279, PCO2 is 27.1, PO2 is 123.2 and bicarb is 12.4. Glucoses are under fairly good control. Protein and albumin are low. White count is 17,600 with 90 segs. H&H is 10.0 /30.5 and platelets of 279,000. Blood cultures are growing Citrobacter. This is sensitive to the patient's present antibiotic. Patient had abdominal surgery on 03/06/2017. Dr. Haywood and I have discussed the results. Patient did well in the perioperative period. Creatinine is 10.2. BUN is 105. Sodium potassium chloride are normal. Yesterday the patient was able to do 3 hours of CPAP postop. We will continue to weaning protocol and as mentioned above correction of his metabolic acidosis will go a long ways in the weaning process. Physical exam. Vital signs. See below Psychiatric. Sedated. Neurological. No C movement in all 4 extremities. Chest. Fairly clear Heart. No gallop Abdomen. Postsurgical Extremities nothing to suggest deep venous thrombophlebitis Face is symmetrical with no edema of the lips and tongue Neck symmetrical. No evidence of meningismus. The remainder the physical exam is noncontributory and negative Plan. 03/05/2017 1. I have reviewed orders and agree with them. I made no changes. 2. Mechanical ventilation weaning protocol. Will not be able to advance very far as follow-up surgery is planned tomorrow or the next day 3. Mechanical ventilation physical therapy protocol. #4. Proton pump inhibitor protocol 5. Deep venous thrombophlebitis prevention protocol 03/06/2017 1. See today's note above 2. Surgery today 3. Restart weaning protocol postop 3. This patient needs alveolar hyperventilation in the perioperative period and until his metabolic acidosis is corrected. 03/07/2017. 1. See today's note above. 2. Dialysis 3. Weaning protocol 4. Physical therapy protocol Exam (Progress Note) - Constitutional Vitals: Period Temp Pulse Resp BP Sys/Florez Pulse Ox Last 24 Hr 97.2 F-97.9 F 70-111 12-24 92-144/56-99 96-100 Results - Labs CBC & BMP: 03/07/17 05:29 03/07/17 05:29
[2017-03-07] MEDS ORDERED: HEPARIN 10,000 UNIT/10 ML VIAL IV SCH (13:00)
[2017-03-07] MEDS ORDERED: HEPARIN 5,000 UNIT/1 ML VIAL ONE (13:16)
[2017-03-07] MEDS ORDERED: HEPARIN 10,000 UNIT/10 ML VIAL IV ONE (13:30)
[2017-03-07] MEDS ORDERED: DEXTROSE 50% 25 GM/50 ML SYRINGE IV PRN (14:45)
[2017-03-07] MEDS ORDERED: MULTIVITAMIN IV SCH (17:00)
[2017-03-07] MEDS ORDERED: AMINO ACIDS IV SCH (17:00)
[2017-03-07] MEDS ORDERED: TRACE ELEMENTS IV SCH (17:00)
[2017-03-07] MEDS ORDERED: [UNRECOGNIZED DRUG - OTHER] IV SCH (17:00)
[2017-03-07] MEDS ORDERED: DEXTROSE 10% 1,000 ML IV PRN (17:00)
[2017-03-07] MEDS: INSULIN REGULAR 100 UNIT/ML SUBCUT SCH (17:39)
[2017-03-07] MEDS: FAT EMULSION 20% 250 ML IV SCH (17:45)
[2017-03-07] MEDS: PROPOFOL 1,000 MG/100 ML BOTTLE IV SCH (18:01)
[2017-03-08] MEDS: PROPOFOL 1,000 MG/100 ML BOTTLE IV SCH ×2 (01:12→05:49)
[2017-03-08] MEDS: NOREPINEPHRINE 8 MG in SODIUM CHLORIDE 0.9% 242 ML IV SCH ×2 (01:13→03:33)
[2017-03-08] MEDS: INSULIN REGULAR 100 UNIT/ML SUBCUT SCH ×5 (01:18→23:58)
[2017-03-08] MEDS: ERTAPENEM 1,000 MG in SODIUM CHLORIDE 0.9% 100 ML IV SCH (01:19)
[2017-03-08 03:22] LABS: ABG Base Excess -9.4 MMOL/L (-2.5-2.5); ABG HCO3 15.6 MMOL/L (20-26); ABG Oxygen Saturation 96.8 % (95-100); ABG PCO2 30.8 MM HG (35-48); ABG PH 7.323 (7.35-7.45); ABG PO2 104.1 MM HG (80-95); ABG TCO2 16.6 MMOL/L (23-27)
[2017-03-08] MEDS: SODIUM BICARB INJ 150 MEQ in STERILE WATER INJ 1,000 ML IV SCH ×2 (03:30→09:31)
[2017-03-08 05:59] LABS: Basophils % 0.1 % (0.0-0.8); Eosinophils # 0.1 10*3/uL (0.0-0.87); Eosinophils % 0.8 % (0.00-10.9); Hematocrit 26.2 VOL% (42.0-52.0); Hemoglobin 8.7 GM/DL (14.0-18.0); Immature Granulocytes Absolute 0.15 #; Lymphocytes # 0.7 10*3/uL (1.4-4.0); Lymphocytes % 4.7 % (21.2-54.2); Mean Corpuscular HGB Conc 33.2 GM/DL (32-36); Mean Corpuscular Hemoglobin 27 PG (27-34); Mean Corpuscular Volume 81.9 FL (87-102); Mean Platelet Volume 11.3 FL (9.6-12.0); Monocytes # 0.9 10*3/uL (0.11-0.8); Monocytes % 5.6 % (1.7-12.7); NRBC # 0.04 10*3/uL; Neutrophils # 13.2 10*3/uL (1.4-7.4); Neutrophils % 87.8 % (38.7-73.9); Platelet Count 245 T/CUMM (130-400); Red Cell Distribution Width 16.8 % (9.3-17.3); White Blood Count 15.1 T/CUMM (4-12)
[2017-03-08 06:46] LABS: Magnesium 2.4 MG/DL (1.8-2.4); Phosphorous 8.2 MG/DL (2.5-4.9); Prealbumin 6.6 MG/DL (20-40)
[2017-03-08 06:51] LABS: Eosinophils 1 % (0-10); Hypochromasia 1+; Lymphocytes 6 % (20-55); Segmented Neutrophils 90 % (50-85); Total Cells Counted 100
[2017-03-08 06:52] LABS: Microcytosis 1+; Ovalocytes Slight; Platelet Estimate Normal
--- NOTE | 2017-03-08 07:58 | XRay Report ---
Exam: XR chest 1V portable Date: 03/08/2017 4:00 AM Indication: Follow-up respiratory failure intubation Comparison: 03/07/2017 Technical: AP portable Findings: Right sided IJ dialysis catheter is present in the superior vena cava. Endotracheal tube nasogastric tube are present. External cardiac leads are present. The mediastinum is otherwise intact with calcified nodes in the carinal region and right perihilar region. Low volume left and right base pleural effusion with alveolar edema present. Some granuloma changes are present. Oxygen tubing and extraconal cardiac leads are present. No pneumothorax. ASVD is present. Impression: 1. Cardiomegaly with low volume effusions 2. Stable appearance of the life support tubes with persistent mild alveolar edema. Overall Little change has occurred PROCEDURE INTERPRETED AT [facility] DEPARTMENT OF RADIOLOGY Final Report Signed by: Dr. Enmanuel Sanford
--- NOTE | 2017-03-08 08:33 | Hospitalist Progress Note ---
Assessment and Plan (1) Large bowel obstruction Status: Acute Assessment and plan: Impression: 1. Colon obstruction 2. Acute respiratory failure 3. Acute on chronic renal failure Plan: Continue weaning trials per pulmonary. He did well yesterday. Dialysis again today. Hope to extubate soon, and then transferred to a room. This note was completed using [employer] voice recognition software. There may be tube drawer errors as a result. Current Visit: Yes Hospitalist: Subjective Interval history: Follow-up acute on chronic renal failure, colon obstruction, and acute respiratory failure. The patient remains attached to the ventilator. He continues to receive a norepinephrine infusion, and is currently on a breathing trial with pressure support. He appears to be tolerating this well. He is sedated with propofol. He had dialysis yesterday, and will have another episode of dialysis today. Exam - Constitutional Vitals: Period Temp Pulse Resp BP Sys/Florez Pulse Ox Last 24 Hr 97 F-98.4 F 71-131 14-25 90-149/57-106 96-100 Vital signs are noted above. Heart is irregular with a 2/6 systolic murmur. Lungs have a few rhonchi, but are mostly clear. Abdomen is bandaged. Colostomy is functioning in the right lower quadrant. He is sedated on the ventilator. Results - Labs CBC & BMP: 03/08/17 05:01 03/07/17 05:29 Lab Results: I have reviewed the past 24 hour labs
[2017-03-08] MEDS: PANTOPRAZOLE 40 MG VIAL IV SCH (09:31)
--- NOTE | 2017-03-08 11:30 | Nephrology Progress Note ---
Nephrology - PN: Subj Interval history: Patient remains intubated and sedate. Physical exam general the patient is chronically ill-appearing, heart is regular rate and rhythm, he has no pitting edema, lungs are clear to auscultation anteriorly, abdomen is soft with decreased bowel sounds Assessment/plan 1. Acute renal failure on chronic renal failure-I saw this patient back in September 2016 at that time he had a creatinine around 4.5 mg/dL, his creatinine on admission here was around 9 and has progressively increased since admission. He was dialyzed yesterday we will plan on dialyzing the patient again today. 2. 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 Bowel obstruction-patient is status post exploratory laparotomy 4. Respiratory failure-patient continues on ventilator support 5. Diabetes mellitus 6. History of hypertension-patient has been requiring pressor support therapy since admission. 7. Malnutrition-we will continue TPN 8. Anemia-patient's hematocrits around 26% Exam (PN)-Nephrology - Vital Signs Vital signs: Period Temp Pulse Resp BP Sys/Florez Pulse Ox Last 24 Hr 97 F-98.9 F 71-131 14-25 90-149/56-106 96-100 - Lab 03/08/17 05:01 03/07/17 05:29 Most recent lab results ABG pH 7.323 (7.35-7.45) L 03/08/17 03:15 ABG pCO2 30.8 MM HG (35-48) L 03/08/17 03:15 ABG pO2 104.1 MM HG (80-95) H 03/08/17 03:15 ABG HCO3 15.6 MMOL/L (20-26) L 03/08/17 03:15 ABG O2 Saturation 96.8 % (95-100) 03/08/17 03:15 Calcium 8.4 MG/DL (8.5-10.1) L 03/07/17 05:29 Phosphorus 8.2 MG/DL (2.5-4.9) H 03/08/17 05:01 Magnesium 2.4 MG/DL (1.8-2.4) 03/08/17 05:01
--- NOTE | 2017-03-08 12:54 | Event Note ---
Afebrile vital signs stable. He is off Cardizem drip. His pressor is being weaned. NG tube with approximately 150 cc out. Abdomen is soft mildly distended and the stoma appears to be functioning well. Midline wound appears clean. We will continue NG tube to suction. May be able to start tube feeds soon once he is off pressors. Continue TPN.
--- NOTE | 2017-03-08 12:55 | Event Note ---
Patient continues intubated and requiring vasopressor support. White blood cell count continues to improve. H&H is stable. NG tube output with 125 cc with the past 24 hours and 50 cc since midnight recorded; bilious in nature. He continues with TPN. Still noted in ostomy bag. Wound is clean without purulence, erythema, edema or drainage. Bowel sounds present in all 4 quadrants. Continue with TPN, NG tube, follow ostomy output, and local wound care. Will continue to follow.
[2017-03-08] MEDS: FAT EMULSION 20% 250 ML IV SCH (13:57)
--- NOTE | 2017-03-08 14:03 | Pulmonology Progress Note ---
Pulmonary - PN: Subj Interval history: This is a 71-year-old white male whom I saw in pulmonary consultation 03/05/2017. He was postop abdominal surgery for obstruction secondary to colon cancer. My impressions were. 1. Acute bowel obstruction secondary to a mass. Suspect cancer. Postop with a second operation a follow-up. 2. Chronic renal failure. Followed by Dr. Lake and he 3. High blood pressure 4. Heart disease with past history of congestive heart failure 5. Insulin-dependent diabetes mellitus 6. Gastroesophageal reflux disease 7. History of significant depression 8. See past history 03/06/2017. This patient has done well and stabilized overnight. He has severe renal failure with metabolic acidosis. I have compensated for this with hyperventilation with mechanical ventilation. Dr. Bird Herndon is on the case from renal standpoint. ABGs on mechanical ventilation and FiO2 of 60% shows a pH of 7.32. PCO2 is 22.6. PO2 is 246 and bicarb is very low at 11.4. Creatinine is 9.4 with a BUN of 104. Sodium potassium are normal and chloride is 108. Serum osmolality is 313.7. Total protein is 4.2 and albumin is 1.7 globulins at 2.5 thyroid function tests are normal. H&H is 8.8/26.7. I have ordered 1 unit of blood. White count is 12,000 and platelets of 294. Dr. Mike Jaime and I have discussed the case today I think we can proceed with follow- up surgery today. Patient course is at risk but this is probably an opportune time to do it and his risk are not going to decrease anytime soon. 03/07/2017. Chest x-ray shows cardiomegaly. Pulmonary arteries are probably normal. There are benign calcifications of both hilar areas. Endotracheal tube is in good position. There is some right perihilar scarring and some of this may be in the major fissure. No masses. No definite infiltrates. No pneumothorax. This patient is on mechanical ventilation. I am having the hyperventilate to compensate for his metabolic acidosis. I am glad that he is going to get dialysis today. Good result will certainly help with the weaning process. On mechanical ventilation with FiO2 of 60% the pH is 7.279, PCO2 is 27.1, PO2 is 123.2 and bicarb is 12.4. Glucoses are under fairly good control. Protein and albumin are low. White count is 17,600 with 90 segs. H&H is 10.0 /30.5 and platelets of 279,000. Blood cultures are growing Citrobacter. This is sensitive to the patient's present antibiotic. Patient had abdominal surgery on 03/06/2017. Dr. Haywood and I have discussed the results. Patient did well in the perioperative period. Creatinine is 10.2. BUN is 105. Sodium potassium chloride are normal. Yesterday the patient was able to do 3 hours of CPAP postop. We will continue to weaning protocol and as mentioned above correction of his metabolic acidosis will go a long ways in the weaning process. 03/08/2017. Chest x-ray shows heart is top normal in size pulmonary arteries are normal there is scattered calcifications of both lungs and there is slight increase in interstitial markings inferior to the right hilum. The chest x-ray is stable. ABGs on mechanical ventilation show a pH of 7.32, PCO2 of 30.8, PO2 of 104, bicarbonate 15.6. Yesterday the patient went through stage IV to weaning protocol and did very well. Today will advance to stage V. White blood cell count is 15,188 segs. H&H is dropped 8.7 are 26.2. Platelets 245, 000. Glucoses are mildly elevated. This patient is postop abdominal surgery 2. He had a colon cancer. I do not see any path report so far Physical exam. Vital signs. See below Psychiatric. Sedated. Neurological. No C movement in all 4 extremities. Chest. Fairly clear Heart. No gallop Abdomen. Postsurgical Extremities nothing to suggest deep venous thrombophlebitis Face is symmetrical with no edema of the lips and tongue Neck symmetrical. No evidence of meningismus. The remainder the physical exam is noncontributory and negative Plan. 03/05/2017 1. I have reviewed orders and agree with them. I made no changes. 2. Mechanical ventilation weaning protocol. Will not be able to advance very far as follow-up surgery is planned tomorrow or the next day 3. Mechanical ventilation physical therapy protocol. #4. Proton pump inhibitor protocol 5. Deep venous thrombophlebitis prevention protocol 03/06/2017 1. See today's note above 2. Surgery today 3. Restart weaning protocol postop 3. This patient needs alveolar hyperventilation in the perioperative period and until his metabolic acidosis is corrected. 03/07/2017. 1. See today's note above. 2. Dialysis 3. Weaning protocol 4. Physical therapy protocol 03/08/2017. 1. See my note above for today. 2. Stage V weaning protocol continue physical therapy protocol 3 Path results pending Exam (Progress Note) - Constitutional Vitals: Period Temp Pulse Resp BP Sys/Florez Pulse Ox Last 24 Hr 98.3 F-98.9 F 71-131 14-25 90-149/56-106 96-100 Results - Labs CBC & BMP: 03/08/17 05:01 03/07/17 05:29
[2017-03-08] MEDS ORDERED: [UNRECOGNIZED DRUG - OTHER] IV SCH (17:00)
[2017-03-08] MEDS ORDERED: TRACE ELEMENTS IV SCH (17:00)
[2017-03-08] MEDS ORDERED: MULTIVITAMIN IV SCH (17:00)
[2017-03-08] MEDS ORDERED: AMINO ACIDS IV SCH (17:00)
[2017-03-08] MEDS: MULTIVITAMIN IV SCH (17:13)
[2017-03-08] MEDS: [UNRECOGNIZED DRUG - OTHER] IV SCH (17:13)
[2017-03-08] MEDS: INSULIN REGULAR IV SCH (17:13)
[2017-03-08] MEDS: TRACE ELEMENTS IV SCH (17:13)
[2017-03-09] MEDS: SODIUM BICARB INJ 150 MEQ in STERILE WATER INJ 1,000 ML IV SCH ×3 (00:01→21:03)
[2017-03-09] MEDS: ERTAPENEM 1,000 MG in SODIUM CHLORIDE 0.9% 100 ML IV SCH (01:30)
[2017-03-09] MEDS: NOREPINEPHRINE 8 MG in SODIUM CHLORIDE 0.9% 242 ML IV SCH (02:24)
[2017-03-09 03:14] LABS: Allen Test Positive; Pt O2 Delivery Device Ventilator
[2017-03-09 03:25] LABS: ABG Base Excess -4.8 MMOL/L (-2.5-2.5); ABG HCO3 20.4 MMOL/L (20-26); ABG Oxygen Saturation 98.6 % (95-100); ABG PCO2 31.9 MM HG (35-48); ABG PH 7.394 (7.35-7.45); ABG TCO2 18.4 MMOL/L (23-27)
[2017-03-09 05:54] LABS: Basophils % 0.3 % (0.0-0.8); Eosinophils # 0.2 10*3/uL (0.0-0.87); Eosinophils % 2.3 % (0.00-10.9); Hematocrit 21.6 VOL% (42.0-52.0); Immature Granulocytes % 1.5 %; Immature Granulocytes Absolute 0.15 #; Lymphocytes # 0.7 10*3/uL (1.4-4.0); Lymphocytes % 6.7 % (21.2-54.2); Mean Corpuscular HGB Conc 32.4 GM/DL (32-36); Mean Corpuscular Hemoglobin 27 PG (27-34); Mean Corpuscular Volume 82.4 FL (87-102); Mean Platelet Volume 11.7 FL (9.6-12.0); Monocytes # 0.7 10*3/uL (0.11-0.8); Monocytes % 6.7 % (1.7-12.7); NRBC # 0.02 10*3/uL; Neutrophils # 8.2 10*3/uL (1.4-7.4); Neutrophils % 82.5 % (38.7-73.9); Platelet Count 209 T/CUMM (130-400); Red Blood Count 2.62 MC/CUMM (3.8-5.5); Red Cell Distribution Width 16.7 % (9.3-17.3)
[2017-03-09] MEDS: INSULIN REGULAR 100 UNIT/ML SUBCUT SCH ×3 (06:24→18:37)
[2017-03-09 06:25] LABS: Eosinophils 3 % (0-10); Lymphocytes 2 % (20-55); Metamyelocytes 1 %; Myelocytes 3 %; Segmented Neutrophils 90 % (50-85); Total Cells Counted 100
[2017-03-09 06:26] LABS: Anisocytosis 1+; Hypochromasia 1+; Platelet Estimate Normal
--- NOTE | 2017-03-09 07:02 | XRay Report ---
Exam: XR chest 1V portable Date: 03/09/2017 4:00 AM Indication: Follow-up ventilator shortness of breath respiratory failure Comparison: 03/08/2017 Technical AP Findings:: Endotracheal tube is at the aortic knob. Nasogastric tube traverses esophagus. A right IJ dialysis catheter is in the superior vena cava. Cardiomegaly is present. Low volume effusions present on the left and right with underlying alveolar edema right greater than left with calcified nodes in the mediastinum. No pneumothorax. Impression: 1. Stable appearance of life support tubing 2. Persistent low volume effusions and alveolar edema. PROCEDURE INTERPRETED AT [facility] DEPARTMENT OF RADIOLOGY Final Report Signed by: Dr. Enmanuel Sanford
[2017-03-09] MEDS: PANTOPRAZOLE 40 MG VIAL IV SCH (08:13)
--- NOTE | 2017-03-09 08:21 | Hospitalist Progress Note ---
Assessment and Plan (1) Large bowel obstruction Status: Acute Assessment and plan: Impression: 1. Colon obstruction, postop 2. Acute respiratory failure, being weaned from the ventilator. 3. Acute on chronic renal failure, continuing dialysis 4. Atrial fibrillation 5. Worsening anemia Plan: Continue weaning trials, and extubate per pulmonary. Surgery has been notified of the nonfunctioning dialysis catheter. Transfuse 1 unit of red cells. This note was completed using [employer] voice recognition software. There may be custom dressmaker errors as a result. Current Visit: Yes Hospitalist: Subjective Interval history: Follow-up colon obstruction, atrial fibrillation, acute on chronic renal failure , acute respiratory failure. The patient continues on weaning trials from the ventilator, and is apparently doing well. His dialysis catheter has clotted, so he is not receiving dialysis at this time. He is currently sedated. Staff reports extreme presbycusis, so it is difficult to determine if he can actually follow suggestions. Exam - Constitutional Vitals: Period Temp Pulse Resp BP Sys/Florez Pulse Ox Last 24 Hr 98.1 F-99.3 F 76-109 14-27 81-122/55-90 98-100 Vital signs are noted above. Heart is irregular with a 2/6 systolic ejection murmur. Chest is fairly clear. Abdomen is soft with a midline bandage and a right sided colostomy. He is sedated on the ventilator. Results - Labs CBC & BMP: 03/09/17 05:20 03/07/17 05:29 Lab Results: I have reviewed the past 24 hour labs (Hemoglobin continues to drop. Creatinine is fairly stable.)
[2017-03-09] MEDS ORDERED: SODIUM CHLORIDE 0.9% 250 ML IV PRN ×2 (08:22→09:00)
--- NOTE | 2017-03-09 08:59 | Nephrology Progress Note ---
Nephrology - PN: Subj Interval history: Patient remains intubated and sedate. Physical exam general patient is chronically ill-appearing, heart is regular rate and rhythm, he has trace pretibial edema, lungs are clear to auscultation anteriorly, abdomen is soft with decreased bowel sounds Assessment/plan 1. Acute renal failure-we will plan on dialyzing the patient today, we have had trouble using his temporary dialysis catheter will try TPA to open it up today. If not will need to do a catheter exchange 2. Respiratory failure continue vent support 3. Bowel obstruction-management per general surgery 4. Diabetes mellitus 5. Anemia-patient's hematocrits 21%, will transfuse the patient 2 units packed red blood cells on dialysis. Exam (PN)-Nephrology - Vital Signs Vital signs: Period Temp Pulse Resp BP Sys/Florez Pulse Ox Last 24 Hr 98.1 F-99.3 F 76-109 14-27 81-122/55-90 98-100 - Lab 03/09/17 05:20 03/07/17 05:29 Most recent lab results ABG pH 7.394 (7.35-7.45) 03/09/17 03:13 ABG pCO2 31.9 MM HG (35-48) L 03/09/17 03:13 ABG pO2 170.0 MM HG (80-95) H 03/09/17 03:13 ABG HCO3 20.4 MMOL/L (20-26) 03/09/17 03:13 ABG O2 Saturation 98.6 % (95-100) 03/09/17 03:13 Calcium 8.4 MG/DL (8.5-10.1) L 03/07/17 05:29 Phosphorus 8.2 MG/DL (2.5-4.9) H 03/08/17 05:01 Magnesium 2.4 MG/DL (1.8-2.4) 03/08/17 05:01
[2017-03-09] MEDS ORDERED: ALTEPLASE 2 MG VIAL IV ONE (09:30)
--- NOTE | 2017-03-09 11:16 | Pulmonology Progress Note ---
Pulmonary - PN: Subj Interval history: This is a 71-year-old white male whom I saw in pulmonary consultation 03/05/2017. He was postop abdominal surgery for obstruction secondary to colon cancer. My impressions were. 1. Acute bowel obstruction secondary to a mass. Suspect cancer. Postop with a second operation a follow-up. 2. Chronic renal failure. Followed by Dr. Lake and he 3. High blood pressure 4. Heart disease with past history of congestive heart failure 5. Insulin-dependent diabetes mellitus 6. Gastroesophageal reflux disease 7. History of significant depression 8. See past history 03/06/2017. This patient has done well and stabilized overnight. He has severe renal failure with metabolic acidosis. I have compensated for this with hyperventilation with mechanical ventilation. Dr. Bird Herndon is on the case from renal standpoint. ABGs on mechanical ventilation and FiO2 of 60% shows a pH of 7.32. PCO2 is 22.6. PO2 is 246 and bicarb is very low at 11.4. Creatinine is 9.4 with a BUN of 104. Sodium potassium are normal and chloride is 108. Serum osmolality is 313.7. Total protein is 4.2 and albumin is 1.7 globulins at 2.5 thyroid function tests are normal. H&H is 8.8/26.7. I have ordered 1 unit of blood. White count is 12,000 and platelets of 294. Dr. Mike Jaime and I have discussed the case today I think we can proceed with follow- up surgery today. Patient course is at risk but this is probably an opportune time to do it and his risk are not going to decrease anytime soon. 03/07/2017. Chest x-ray shows cardiomegaly. Pulmonary arteries are probably normal. There are benign calcifications of both hilar areas. Endotracheal tube is in good position. There is some right perihilar scarring and some of this may be in the major fissure. No masses. No definite infiltrates. No pneumothorax. This patient is on mechanical ventilation. I am having the hyperventilate to compensate for his metabolic acidosis. I am glad that he is going to get dialysis today. Good result will certainly help with the weaning process. On mechanical ventilation with FiO2 of 60% the pH is 7.279, PCO2 is 27.1, PO2 is 123.2 and bicarb is 12.4. Glucoses are under fairly good control. Protein and albumin are low. White count is 17,600 with 90 segs. H&H is 10.0 /30.5 and platelets of 279,000. Blood cultures are growing Citrobacter. This is sensitive to the patient's present antibiotic. Patient had abdominal surgery on 03/06/2017. Dr. Haywood and I have discussed the results. Patient did well in the perioperative period. Creatinine is 10.2. BUN is 105. Sodium potassium chloride are normal. Yesterday the patient was able to do 3 hours of CPAP postop. We will continue to weaning protocol and as mentioned above correction of his metabolic acidosis will go a long ways in the weaning process. 03/08/2017. Chest x-ray shows heart is top normal in size pulmonary arteries are normal there is scattered calcifications of both lungs and there is slight increase in interstitial markings inferior to the right hilum. The chest x-ray is stable. ABGs on mechanical ventilation show a pH of 7.32, PCO2 of 30.8, PO2 of 104, bicarbonate 15.6. Yesterday the patient went through stage IV to weaning protocol and did very well. Today will advance to stage V. White blood cell count is 15,188 segs. H&H is dropped 8.7 are 26.2. Platelets 245, 000. Glucoses are mildly elevated. This patient is postop abdominal surgery 2. He had a colon cancer. I do not see any path report so far 03/09/2017. Chest x-ray shows stable cardiomegaly. Old scarring in calcification in the right hilum. I see no infiltrates and no congestive heart failure. ABGs on mechanical ventilation and FiO2 is 60% shows a pH 7.39, PCO2 32, PO2 of 170 bicarbonate 20.4. H&H is dropped to 7.0/21.6. I have ordered 2 units of packed red blood cells. This patient needs oxygen carrying capacity in order to weaning. Yesterday the patient had about 12 hours on CPAP.His dialysis catheter has clotted. Physical exam. Vital signs. See below Psychiatric. Sedated. Neurological. No C movement in all 4 extremities. Chest. Fairly clear Heart. No gallop Abdomen. Postsurgical Extremities nothing to suggest deep venous thrombophlebitis Face is symmetrical with no edema of the lips and tongue Neck symmetrical. No evidence of meningismus. The remainder the physical exam is noncontributory and negative Plan. 03/05/2017 1. I have reviewed orders and agree with them. I made no changes. 2. Mechanical ventilation weaning protocol. Will not be able to advance very far as follow-up surgery is planned tomorrow or the next day 3. Mechanical ventilation physical therapy protocol. #4. Proton pump inhibitor protocol 5. Deep venous thrombophlebitis prevention protocol 03/06/2017 1. See today's note above 2. Surgery today 3. Restart weaning protocol postop 3. This patient needs alveolar hyperventilation in the perioperative period and until his metabolic acidosis is corrected. 03/07/2017. 1. See today's note above. 2. Dialysis 3. Weaning protocol 4. Physical therapy protocol 03/08/2017. 1. See my note above for today. 2. Stage V weaning protocol continue physical therapy protocol 3 Path results pending 03/09/2017. 1. See today's note above. 2. Pathology reports are pending. 3. Continue weaning physical therapy protocol 4. For dialysis Exam (Progress Note) - Constitutional Vitals: Period Temp Pulse Resp BP Sys/Florez Pulse Ox Last 24 Hr 97.2 F-99.3 F 73-109 14-27 81-121/55-90 98-100 Results - Labs CBC & BMP: 03/09/17 05:20 03/07/17 05:29
[2017-03-09] MEDS: [UNRECOGNIZED DRUG - OTHER] IV SCH (11:28)
[2017-03-09] MEDS: TRACE ELEMENTS IV SCH (11:28)
[2017-03-09] MEDS: INSULIN REGULAR IV SCH (11:28)
[2017-03-09] MEDS: MULTIVITAMIN IV SCH (11:28)
--- NOTE | 2017-03-09 12:12 | Event Note ---
Patient is intubated and sedated off vasopressor support. Leukocytosis has resolved. H&H continues to drop and patient receiving 1 unit packed red blood cells today. VSS - afebrile Stool noted in ostomy bag. Wound is clean without purulence, erythema, edema or drainage. Abdomen nondistended. Bowel sounds present in all 4 quadrants. A/P Continue with TPN, NG tube, follow ostomy output, and local wound care. H/H dropping, but I see no evidence of p/o bleeding at this time. EGD pending for today.
--- NOTE | 2017-03-09 12:18 | Pathology Report from [facility] ---
[facility] – [place] ACCESSION # : [id number] PATIENT NAME : Jose E Allred ORDERING DR : Michael Haywood MD CLINICAL HX: Bile obsctruction POST-OP DX: Same SPECIMEN INFO: Partial obstruction GROSS DESCRIPTION: The specimen is received in formalin labeled JOSE E ALLRED consists of a segment of unoriented colon measuring 12.5 x 5.8 cm. The serosa is red-hummel with exudate present. The mucosal surface is focally necrotic. No mucosal lesions or perforation appreciated. Sections submitted: (A and B) surgical margins and (C) Rn Hematology bowel. DIAGNOSIS FOR JOSE E ALLRED: #1 COLON, PARTIAL COLECTOMY: Segment of benign colon with ischemic colitis and pericolonic abscess, involving one unoriented margin. Other unoriented margin viable. Acute serositis present at both resection margins. COLLECTED DATE: 03/08/2017 [facility] REPORT DATE: 03/09/2017 ELECTRONICALLY SIGNED BY: Luz Wright M.D. 03/09/2017 - 11:47:18 [facility]ITALMel[facility]
[2017-03-09] MEDS: MORPHINE 2 MG/1 ML SYRINGE IV PRN (12:42)
[2017-03-09] MEDS: FAT EMULSION 20% 250 ML IV SCH (14:22)
[2017-03-09] MEDS: TRACE ELEMENTS (5) 1 ML, MULTIVITAMIN INJ 10 ML, INSULIN REGULAR 50 UNIT in AMINO ACIDS... IV SCH (17:00)
[2017-03-09] MEDS: PROPOFOL 1,000 MG/100 ML BOTTLE IV SCH ×2 (23:15)
[2017-03-10] MEDS: INSULIN REGULAR 100 UNIT/ML SUBCUT SCH ×4 (00:33→17:12)
[2017-03-10] MEDS: ERTAPENEM 1,000 MG in SODIUM CHLORIDE 0.9% 100 ML IV SCH (00:57)
[2017-03-10 03:33] LABS: ABG Base Excess -2.8 MMOL/L (-2.5-2.5); ABG HCO3 22.1 MMOL/L (20-26); ABG Oxygen Saturation 98.3 % (95-100); ABG PCO2 32.2 MM HG (35-48); ABG PH 7.422 (7.35-7.45); ABG TCO2 19.3 MMOL/L (23-27); Allen Test Positive; Pt O2 Delivery Device Ventilator
[2017-03-10 05:18] LABS: Basophils % 0.2 % (0.0-0.8); Eosinophils # 0.2 10*3/uL (0.0-0.87); Hematocrit 26.9 VOL% (42.0-52.0); Immature Granulocytes % 3.6 %; Immature Granulocytes Absolute 0.42 #; Lymphocytes # 0.5 10*3/uL (1.4-4.0); Lymphocytes % 4.6 % (21.2-54.2); Mean Corpuscular HGB Conc 33.5 GM/DL (32-36); Mean Corpuscular Hemoglobin 28 PG (27-34); Mean Corpuscular Volume 82.8 FL (87-102); Mean Platelet Volume 11.3 FL (9.6-12.0); Monocytes # 0.7 10*3/uL (0.11-0.8); Monocytes % 6.4 % (1.7-12.7); Neutrophils # 9.6 10*3/uL (1.4-7.4); Neutrophils % 83.2 % (38.7-73.9); Platelet Count 226 T/CUMM (130-400); Red Cell Distribution Width 15.8 % (9.3-17.3); White Blood Count 11.6 T/CUMM (4-12)
[2017-03-10 05:33] LABS: Red Blood Count 3.25 MC/CUMM (3.8-5.5)
[2017-03-10 05:47] LABS: Eosinophils 3 % (0-10); Lymphocytes 5 % (20-55); Segmented Neutrophils 87 % (50-85); Total Cells Counted 100
[2017-03-10 05:48] LABS: Giant Platelets Few; Hypochromasia 1+; Microcytosis Slight; Ovalocytes Slight; Platelet Estimate Adequate
[2017-03-10] MEDS: SODIUM BICARB INJ 150 MEQ in STERILE WATER INJ 1,000 ML IV SCH ×2 (07:34→20:16)
[2017-03-10] MEDS: TRACE ELEMENTS (5) 1 ML, MULTIVITAMIN INJ 10 ML, INSULIN REGULAR 50 UNIT in AMINO ACIDS... IV SCH (07:44)
--- NOTE | 2017-03-10 07:44 | EKG Report ---
Stationary ECG Study [facility] Test Date: 03/09/2017 5:16:31 PM Pat Name: JED EMERSON Department: Room: 120 Gender: M Configuration Management Architect: : 1945 Requested by: Hao Bunch Order Number: [id number] Reading MD: ADALGISA ELIAS Intervals Campbell Rate: 91 P: 999 SD: 0 QRS: -30 QRSD: 122 T: 60 QT: 337 QTc: 385 Interpretive Statements ATRIAL FIBRILLATION WITH ABERRANT CONDUCTION OR VENTRICULAR PREMATURE COMPLEXES MODERATE INTRAVENTRICULAR CONDUCTION DELAY MODERATE ST DEPRESSION Electronically Signed On 03-10-17 18:49:21 CDT by ADALGISA ELIAS [email or web address]
--- NOTE | 2017-03-10 07:59 | XRay Report ---
Portable chest March 10, 2017 through 29 hours Indication: Difficulty breathing Comparison images from previous day at 0318 hours Findings: Cardiac and mediastinal contours are normal. Mild central interstitial prominence is relatively unchanged. Bibasilar atelectasis with stranding bibasilar opacities, probably within the right lung base. Suspect trace left effusion. Osseous structures are stable. Impression: Slight central interstitial prominence with improved aeration right lung base. Stable left basilar atelectasis. PROCEDURE INTERPRETED AT [facility] DEPARTMENT OF RADIOLOGY Final Report Signed by: Artem Grant
--- NOTE | 2017-03-10 08:04 | Hospitalist Progress Note ---
Assessment and Plan (1) Large bowel obstruction Status: Acute Assessment and plan: Impression: 1. Colon obstruction, due to infectious process, postop. 2. Acute respiratory failure, being weaned from the ventilator. 3. Acute on chronic renal failure, continuing dialysis 4. Atrial fibrillation, rate controlled 5. Severe malnutrition Plan: Continue weaning trials, and extubate per pulmonary. Continue current antimicrobials. Continue dialysis. Recheck chemistries in the morning. This note was completed using [employer] voice recognition software. There may be manager of international errors as a result. Current Visit: Yes Hospitalist: Subjective Interval history: Follow-up: colon obstruction, atrial fibrillation, acute on chronic renal failure, respiratory failure. The pathology report did not show any evidence of a malignant process. The obstruction was apparently due to an infectious process. He remains in atrial fibrillation. He continues on weaning trials, and is currently on spontaneous ventilation. He received a unit of red cells yesterday. Exam - Constitutional Vitals: Period Temp Pulse Resp BP Sys/Florez Pulse Ox Last 24 Hr 97.1 F-98.5 F 73-122 13-644 83-140/58-104 95-100 Vital signs are noted above. Heart is irregular with a soft systolic murmur. He has a few rhonchi in the chest. Abdomen has a midline bandage and a right-sided ostomy that is functioning. He has a couple millimeters of peripheral edema He opens his eyes and looks around. Results - Labs CBC & BMP: 03/10/17 04:32 03/07/17 05:29 Lab Results: I have reviewed the past 24 hour labs (Hemoglobin is up following transfusion.)
[2017-03-10] MEDS: PANTOPRAZOLE 40 MG VIAL IV SCH (08:16)
--- NOTE | 2017-03-10 10:31 | Event Note ---
Patient is intubated and sedated off vasopressor support. Leukocytosis has resolved. H&H responded appropriately to transfusion. VSS - afebrile Stool noted in ostomy bag. Wound is clean without purulence, erythema, edema or drainage. Abdomen nondistended. Hypoactive bowel sounds present in all 4 quadrants. Pathology: Report from second procedure reveals no malignant source; pathology from original procedure still pending. I discussed with the pathology department and they are holding results for further assessment and results are still pending A/P Continue with TPN, NG tube, follow ostomy output, and local wound care. Likely can consider starting tube feedings. Will review with Dr. Haywood. Follow-up on pathology report.
--- NOTE | 2017-03-10 11:10 | Pulmonology Progress Note ---
Pulmonary - PN: Subj Interval history: This is a 71-year-old white male whom I saw in pulmonary consultation 03/05/2017. He was postop abdominal surgery for obstruction secondary to colon cancer. My impressions were. 1. Acute bowel obstruction secondary to a mass. Suspect cancer. Postop with a second operation a follow-up. 2. Chronic renal failure. Followed by Dr. Lake and he 3. High blood pressure 4. Heart disease with past history of congestive heart failure 5. Insulin-dependent diabetes mellitus 6. Gastroesophageal reflux disease 7. History of significant depression 8. See past history 03/06/2017. This patient has done well and stabilized overnight. He has severe renal failure with metabolic acidosis. I have compensated for this with hyperventilation with mechanical ventilation. Dr. Bird Herndon is on the case from renal standpoint. ABGs on mechanical ventilation and FiO2 of 60% shows a pH of 7.32. PCO2 is 22.6. PO2 is 246 and bicarb is very low at 11.4. Creatinine is 9.4 with a BUN of 104. Sodium potassium are normal and chloride is 108. Serum osmolality is 313.7. Total protein is 4.2 and albumin is 1.7 globulins at 2.5 thyroid function tests are normal. H&H is 8.8/26.7. I have ordered 1 unit of blood. White count is 12,000 and platelets of 294. Dr. Mike Jaime and I have discussed the case today I think we can proceed with follow- up surgery today. Patient course is at risk but this is probably an opportune time to do it and his risk are not going to decrease anytime soon. 03/07/2017. Chest x-ray shows cardiomegaly. Pulmonary arteries are probably normal. There are benign calcifications of both hilar areas. Endotracheal tube is in good position. There is some right perihilar scarring and some of this may be in the major fissure. No masses. No definite infiltrates. No pneumothorax. This patient is on mechanical ventilation. I am having the hyperventilate to compensate for his metabolic acidosis. I am glad that he is going to get dialysis today. Good result will certainly help with the weaning process. On mechanical ventilation with FiO2 of 60% the pH is 7.279, PCO2 is 27.1, PO2 is 123.2 and bicarb is 12.4. Glucoses are under fairly good control. Protein and albumin are low. White count is 17,600 with 90 segs. H&H is 10.0 /30.5 and platelets of 279,000. Blood cultures are growing Citrobacter. This is sensitive to the patient's present antibiotic. Patient had abdominal surgery on 03/06/2017. Dr. Haywood and I have discussed the results. Patient did well in the perioperative period. Creatinine is 10.2. BUN is 105. Sodium potassium chloride are normal. Yesterday the patient was able to do 3 hours of CPAP postop. We will continue to weaning protocol and as mentioned above correction of his metabolic acidosis will go a long ways in the weaning process. 03/08/2017. Chest x-ray shows heart is top normal in size pulmonary arteries are normal there is scattered calcifications of both lungs and there is slight increase in interstitial markings inferior to the right hilum. The chest x-ray is stable. ABGs on mechanical ventilation show a pH of 7.32, PCO2 of 30.8, PO2 of 104, bicarbonate 15.6. Yesterday the patient went through stage IV to weaning protocol and did very well. Today will advance to stage V. White blood cell count is 15,188 segs. H&H is dropped 8.7 are 26.2. Platelets 245, 000. Glucoses are mildly elevated. This patient is postop abdominal surgery 2. He had a colon cancer. I do not see any path report so far 03/09/2017. Chest x-ray shows stable cardiomegaly. Old scarring in calcification in the right hilum. I see no infiltrates and no congestive heart failure. ABGs on mechanical ventilation and FiO2 is 60% shows a pH 7.39, PCO2 32, PO2 of 170 bicarbonate 20.4. H&H is dropped to 7.0/21.6. I have ordered 2 units of packed red blood cells. This patient needs oxygen carrying capacity in order to weaning. Yesterday the patient had about 12 hours on CPAP.His dialysis catheter has clotted. 03/10/2017. Chest x-ray shows dense calcified scarring in the right hilum. There is a possible faint infiltrate in the left lower lung. Heart size is top normal and the lung bean are otherwise clear. This patient continues to make excellent progress on his weaning trials and hopefully he will be ready for extubation in the next day or 2. Yesterday he did 16 hours of CPAP. He still has an NG tube in place and he has copious NG bilious-appearing drainage. There are no new cultures. His ABGs on mechanical ventilation FiO2 of 60% shows a pH 7.42, PCO2 32, PO2 of 139 and a bicarb of 22. Posttransfusion H&H is 9.0/29.9 with a white count 11,600 and platelet count 226,000. Glucose is under fair control. Patient had dialysis yesterday and tolerated this well. His better acid-base balance is going to help with weaning from mechanical ventilator. Physical exam. Vital signs. See below Psychiatric. Sedated. Neurological. No C movement in all 4 extremities. Chest. Fairly clear Heart. No gallop Abdomen. Postsurgical Extremities nothing to suggest deep venous thrombophlebitis Face is symmetrical with no edema of the lips and tongue Neck symmetrical. No evidence of meningismus. The remainder the physical exam is noncontributory and negative Plan. 03/05/2017 1. I have reviewed orders and agree with them. I made no changes. 2. Mechanical ventilation weaning protocol. Will not be able to advance very far as follow-up surgery is planned tomorrow or the next day 3. Mechanical ventilation physical therapy protocol. #4. Proton pump inhibitor protocol 5. Deep venous thrombophlebitis prevention protocol 03/06/2017 1. See today's note above 2. Surgery today 3. Restart weaning protocol postop 3. This patient needs alveolar hyperventilation in the perioperative period and until his metabolic acidosis is corrected. 03/07/2017. 1. See today's note above. 2. Dialysis 3. Weaning protocol 4. Physical therapy protocol 03/08/2017. 1. See my note above for today. 2. Stage V weaning protocol continue physical therapy protocol 3 Path results pending 03/09/2017. 1. See today's note above. 2. Pathology reports are pending. 3. Continue weaning physical therapy protocol 4. For dialysis 03/10/2017. 1. See today's notes above. 2. I do not see the patient's original path report 3. We will consider extubation in next day or 2 if all goes well. Exam (Progress Note) - Constitutional Vitals: Period Temp Pulse Resp BP Sys/Florez Pulse Ox Last 24 Hr 97 F-98.5 F 74-122 13-644 83-143/58-104 95-100 Results - Labs CBC & BMP: 03/10/17 04:32 03/07/17 05:29
--- NOTE | 2017-03-10 12:02 | Nephrology Progress Note ---
Nephrology - PN: Subj Interval history: Patient remains intubated and sedate, he does open his eyes and move his extremities and fix and follow Physical exam general patient is chronically ill-appearing, heart is regular rate and rhythm, he has 1+ pretibial edema, lungs are clear to auscultation anteriorly, abdomen is soft with absent bowel sounds Assessment/plan 1. Acute renal failure on chronic renal failure-we will continue hemodialysis support with dialysis tomorrow 2. Respiratory failure continue ventilator support 3. Bowel obstruction-patient status post laparotomy 4. Diabetes mellitus Exam (PN)-Nephrology - Vital Signs Vital signs: Period Temp Pulse Resp BP Sys/Florez Pulse Ox Last 24 Hr 97 F-98.2 F 74-122 13-644 83-143/58-104 95-100 - Lab 03/10/17 04:32 03/07/17 05:29 Most recent lab results ABG pH 7.422 (7.35-7.45) 03/10/17 03:15 ABG pCO2 32.2 MM HG (35-48) L 03/10/17 03:15 ABG pO2 139.0 MM HG (80-95) H 03/10/17 03:15 ABG HCO3 22.1 MMOL/L (20-26) 03/10/17 03:15 ABG O2 Saturation 98.3 % (95-100) 03/10/17 03:15 Calcium 8.4 MG/DL (8.5-10.1) L 03/07/17 05:29 Phosphorus 8.2 MG/DL (2.5-4.9) H 03/08/17 05:01 Magnesium 2.4 MG/DL (1.8-2.4) 03/08/17 05:01
[2017-03-10] MEDS: FAT EMULSION 20% 250 ML IV SCH (14:39)
[2017-03-10] MEDS: [UNRECOGNIZED DRUG - OTHER] IV SCH (17:08)
[2017-03-10] MEDS: MULTIVITAMIN IV SCH (17:08)
[2017-03-10] MEDS: INSULIN REGULAR IV SCH (17:08)
[2017-03-10] MEDS: TRACE ELEMENTS IV SCH (17:08)
--- NOTE | 2017-03-10 18:20 | Pathology Report from [facility] ---
[facility] [place] ACCESSION # : [id number] PATIENT NAME : Jose E Emerson ORDERING DR : Michael Haywood MD CLINICAL HX: Bowel obstruction POST-OP DX: Same SPECIMEN INFO: Partial colon (received unfixed) GROSS DESCRIPTION: The specimen is received in formalin labeled JOSE E EMERSON consists of a segment of colon (45.0 cm in length, 2.5 cm to 7.0 cm in greatest diameter) that upon opening reveals a circumferential, constricting tumor mass (5.0 x 2.5 cm) causing marked dilation of a portion of the colon lumen. The mass is 8.0 cm from the nearest resection margin and 35.0 cm from the opposite margin. Grossly the mass appears to invade the bowel wall coming to within 5.0 cm of the mesenteric margin. Also seen is a 0.5 x 0.4 cm single red-pink polyp. Received separately in specimen container is a portion of omentum (28.0 x 8.0 cm) with exudate but no lesions present. Lymph nodes will be submitted following fixation. Sections submitted: (A) Surgical margin nearest mass, (B) opposite margin, (C) mesenteric margin, (D-F) mass, (G) polyp , H&I-Lymph nodes. DIAGNOSIS FOR JOSE E EMERSON: COLON, PARTIAL COLECTOMY (Intact, 45 x 7 cm): TYPE: Invasive mucinous adenocarcinoma TUMOR SITE: Descending colon TUMOR SIZE : 5.0 x 2.5 cm. MACROSCOPIC TUMOR PERFORATION: Absent. HISTOLOGIC GRADE: Moderately differentiated. TUMOR EXTENSION: Invades into the pericolic fat without serosal involvement. MARGINS, UNSPECIFIED COLON MARGINS: Uninvolved by carcinoma, distance = 8 cm & 35 cm. MESENTERIC: Uninvolved by carcinoma, distance = 5 cm. TREATMENT EFFECT: No known presurgical therapy. LYMPHOVASCULAR INVASION: Not identified. PERINEURAL INVASION: Not identified. TUMOR DEPOSITS: Not identified. TUMOR BUDDING: None present, Low score (0-4). LYMPH NODES: NUMBER EXAMINED: 20; NUMBER INVOLVED: 0 (0/20 ). ADDITIONAL FINDINGS: Acute serositis present at one colonic resection margin; tubular adenoma AJCC (2018) PATHOLOGIC STAGE IIA (pT3pN0). COLLECTED DATE: 03/06/2017 [facility] REPORT DATE: 03/10/2017 ELECTRONICALLY SIGNED BY: Luz Wright M.D. 03/10/2017 - 14:39:29 MTDMelody
[2017-03-10] MEDS: PROPOFOL 1,000 MG/100 ML BOTTLE IV SCH (18:30)
[2017-03-11] MEDS: INSULIN REGULAR 100 UNIT/ML SUBCUT SCH ×4 (00:39→18:46)
[2017-03-11] MEDS: ERTAPENEM 1,000 MG in SODIUM CHLORIDE 0.9% 100 ML IV SCH (00:39)
[2017-03-11 02:53] LABS: Allen Test Positive; Pt O2 Delivery Device Ventilator
[2017-03-11 02:54] LABS: ABG Base Excess -3.2 MMOL/L (-2.5-2.5); ABG HCO3 21.7 MMOL/L (20-26); ABG Oxygen Saturation 98.5 % (95-100); ABG PH 7.417 (7.35-7.45); ABG TCO2 18.9 MMOL/L (23-27)
[2017-03-11] MEDS: PROPOFOL 1,000 MG/100 ML BOTTLE IV SCH (03:46)
[2017-03-11 07:33] LABS: Basophils % 0.2 % (0.0-0.8); Eosinophils # 0.2 10*3/uL (0.0-0.87); Eosinophils % 1.9 % (0.00-10.9); Hemoglobin 8.9 GM/DL (14.0-18.0); Immature Granulocytes % 3.8 %; Immature Granulocytes Absolute 0.49 #; Lymphocytes # 0.4 10*3/uL (1.4-4.0); Lymphocytes % 3.3 % (21.2-54.2); Mean Corpuscular HGB Conc 34.2 GM/DL (32-36); Mean Corpuscular Hemoglobin 29 PG (27-34); Mean Corpuscular Volume 83.3 FL (87-102); Mean Platelet Volume 11.6 FL (9.6-12.0); Monocytes # 0.8 10*3/uL (0.11-0.8); Monocytes % 6.1 % (1.7-12.7); Neutrophils # 10.8 10*3/uL (1.4-7.4); Neutrophils % 84.7 % (38.7-73.9); Platelet Count 258 T/CUMM (130-400); Red Blood Count 3.12 MC/CUMM (3.8-5.5); Red Cell Distribution Width 15.8 % (9.3-17.3); White Blood Count 12.7 T/CUMM (4-12)
[2017-03-11 08:03] LABS: Eosinophils 1 % (0-10); Lymphocytes 6 % (20-55); Macrocytosis 1+; Segmented Neutrophils 85 % (50-85); Total Cells Counted 100
[2017-03-11 08:04] LABS: Platelet Estimate Adequate; Polychromasia Slight; Target Cells Slight
[2017-03-11 08:16] LABS: Albumin 1.2 G/DL (3.4-5.0); Calcium 7.6 MG/DL (8.5-10.1); Osmolality,Calculated 302.5 MOS/KG (273-304); Phosphorous 5.1 MG/DL (2.5-4.9); Potassium 2.9 MMOL/L (3.5-5.1)
[2017-03-11 08:29] LABS: Calcium 7.7 MG/DL (8.5-10.1); Osmolality,Calculated 302.5 MOS/KG (273-304); Potassium 2.9 MMOL/L (3.5-5.1)
--- NOTE | 2017-03-11 08:38 | XRay Report ---
Portable chest Exam date: 03/11/2017 4:00 AM Indication: Shortness of breath, cough respiratory failure Comparison: Previous day at 0329 hours Findings: Cardiomediastinal contours are stable with no change in tube or line placement. Improved central interstitial pattern. Low lung volumes with stranding left basilar opacities, minimally improved. No acute osseous abnormalities. Visualized upper abdomen demonstrates no acute pathology. Impression: 1. Improved central interstitial pattern 2. Improving aeration within the left lung base PROCEDURE INTERPRETED AT [facility] DEPARTMENT OF RADIOLOGY Final Report Signed by: Artem Grant
[2017-03-11] MEDS: PANTOPRAZOLE 40 MG VIAL IV SCH (09:09)
[2017-03-11] MEDS: MUPIROCIN 2% OINT 22 GM TUBE TOP SCH ×3 (09:14→20:40)
--- NOTE | 2017-03-11 09:24 | Hospitalist Progress Note ---
Assessment and Plan (1) Large bowel obstruction Status: Acute Assessment and plan: Impression: 1. Colon obstruction, secondary to colon cancer, postop lap. 2. Acute respiratory failure, being weaned from the ventilator. 3. Acute on chronic renal failure, continuing dialysis 4. Atrial fibrillation, rate controlled 5. Severe malnutrition Plan: Continue weaning trials, and extubate per pulmonary. Continue current antimicrobials. Continue dialysis. Recheck chemistries in the morning. Supplement potassium. This note was completed using [employer] voice recognition software. There may be coating machine feeder errors as a result. Current Visit: Yes Hospitalist: Subjective Interval history: Follow-up bowel obstruction, renal failure, and respiratory failure. A second pathology report came back that showed that the patient does indeed have colon cancer. He appears to have had a complete resection of the tumor. He continues to do fairly well with the ventilator weaning, and pulmonary thinks that we may be able to extubate today. Dialysis continues. Currently, the patient is sedated on the ventilator. Staff reports no new problems. Exam - Constitutional Vitals: Period Temp Pulse Resp BP Sys/Florez Pulse Ox Last 24 Hr 97.1 F-98.1 F 74-102 12-26 87-162/56-98 94-100 Vital signs are noted above. Heart is irregular with a soft systolic murmur. He has a few rhonchi in the chest. Abdomen has a midline bandage and a right sided colostomy with stool in the bag. He is sedated. Results - Labs CBC & BMP: 03/11/17 07:07 03/11/17 07:07 Lab Results: I have reviewed the past 24 hour labs (Potassium is slightly low.)
[2017-03-11] MEDS ORDERED: POTASSIUM CHLORIDE 20 MEQ TABLET PO ONE (09:25)
--- NOTE | 2017-03-11 09:27 | Event Note ---
Patient status post ex lap. He was found to have an obstructing colon cancer in the descending colon with dilated bowel and the cecal perforation. He had a left hemicolectomy and repair of the cecal perforation. Second look procedure performed with further removal of colon and creation of end colostomy. He has been slowly improving. He had significant renal insufficiency and was approaching dialysis upon admission and is now in renal failure. He is getting dialysis per nephrology. He remains intubated and sedated. He has been off all pressors for several days. On exam he opens his eyes and moves his extremities. He remains intubated. His abdomen is soft nondistended and the stoma is functioning well. Stoma is pink and patent and viable with a lot of stool in the bag. He has bowel sounds. The midline wound is clean. NG tube with minimal output. Labs reviewed. White blood cell count now slightly elevated Plan: Begin tube feeds and advance per protocol. Once he is at goal, TPN can be weaned off. We will continue to follow white blood cell count. He is at risk for intra-abdominal abscess. If leukocytosis continues to worsen and he may need the central line changed and CT of the abdomen to evaluate for abscess. Will continue antibiotics.
[2017-03-11] MEDS ORDERED: DEXTROSE 50% 25 GM/50 ML VIAL IV PRN (10:05)
[2017-03-11 10:21] LABS: ABG Base Excess -2.5 MMOL/L (-2.5-2.5); ABG HCO3 20.8 MMOL/L (20-26); ABG Oxygen Saturation 97.7 % (95-100); ABG PCO2 30.6 MM HG (35-48); ABG PH 7.451 (7.35-7.45); ABG TCO2 21.8 MMOL/L (23-27); Allen Test Positive
--- NOTE | 2017-03-11 10:35 | Nephrology Progress Note ---
Nephrology - PN: Subj Interval history: Patient remains intubated and sedate, he does open his eyes and seemed to fix and follow Physical exam general the patient is chronically ill-appearing, heart is regular rate and rhythm, he has diffuse swelling, lungs are clear to auscultation anteriorly, abdomen is soft with absent bowel sounds Assessment/plan 1. Acute renal failure on chronic renal failure-this patient's baseline creatinine was around 45 mg/dL a few months ago on presentation here his creatinine was around 9 mg/dL, will continue hemodialysis support this will probably be a permanent requirement. 2. Respiratory failure we will continue ventilator support 3. Bowel obstruction-patient status post exploratory laparotomy 4. Diabetes mellitus continue present hypoglycemic therapy 5. 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 Hypokalemia-will dialyze the patient on a 3K bath Exam (PN)-Nephrology - Vital Signs Vital signs: Period Temp Pulse Resp BP Sys/Florez Pulse Ox Last 24 Hr 97.1 F-100.4 F 74-102 12-26 80-162/56-98 94-100 - Lab 03/11/17 07:07 03/11/17 07:07 Most recent lab results ABG pH 7.451 (7.35-7.45) H 03/11/17 10:12 ABG pCO2 30.6 MM HG (35-48) L 03/11/17 10:12 ABG pO2 109.0 MM HG (80-95) H 03/11/17 10:12 ABG HCO3 20.8 MMOL/L (20-26) 03/11/17 10:12 ABG O2 Saturation 97.7 % (95-100) 03/11/17 10:12 Calcium 7.7 MG/DL (8.5-10.1) L 03/11/17 07:07 Phosphorus 5.1 MG/DL (2.5-4.9) H 03/11/17 07:07 Magnesium 2.4 MG/DL (1.8-2.4) 03/08/17 05:01
[2017-03-11] MEDS ORDERED: POTASSIUM CHLORIDE 20 MEQ/15 ML UDCUP PER TUBE SCH (12:30)
--- NOTE | 2017-03-11 14:14 | Pulmonology Progress Note ---
Pulmonary - PN: Subj Interval history: Kimani Ramírez, [facility]-, acting as scribe for Dr. Enmanuel Jalloh This is a 71-year-old white male who we saw in pulmonary consultation 03/05/2017. He was postop abdominal surgery for obstruction secondary to colon cancer. At the time of our initial consultation, our impressions were: 1. Acute bowel obstruction secondary to a mass. Suspect cancer. Postop with a second operation a follow-up. 2. Chronic renal failure. Followed by Dr. Lake and he 3. High blood pressure 4. Heart disease with past history of congestive heart failure 5. Insulin-dependent diabetes mellitus 6. Gastroesophageal reflux disease 7. History of significant depression 8. See past history 03/06/2017. This patient has done well and stabilized overnight. He has severe renal failure with metabolic acidosis. I have compensated for this with hyperventilation with mechanical ventilation. Dr. Bird Herndon is on the case from renal standpoint. ABGs on mechanical ventilation and FiO2 of 60% shows a pH of 7.32. PCO2 is 22.6. PO2 is 246 and bicarb is very low at 11.4. Creatinine is 9.4 with a BUN of 104. Sodium potassium are normal and chloride is 108. Serum osmolality is 313.7. Total protein is 4.2 and albumin is 1.7 globulins at 2.5 thyroid function tests are normal. H&H is 8.8/26.7. I have ordered 1 unit of blood. White count is 12,000 and platelets of 294. Dr. Mike Jaime and I have discussed the case today I think we can proceed with follow- up surgery today. Patient course is at risk but this is probably an opportune time to do it and his risk are not going to decrease anytime soon. 03/07/2017. Chest x-ray shows cardiomegaly. Pulmonary arteries are probably normal. There are benign calcifications of both hilar areas. Endotracheal tube is in good position. There is some right perihilar scarring and some of this may be in the major fissure. No masses. No definite infiltrates. No pneumothorax. This patient is on mechanical ventilation. I am having the hyperventilate to compensate for his metabolic acidosis. I am glad that he is going to get dialysis today. Good result will certainly help with the weaning process. On mechanical ventilation with FiO2 of 60% the pH is 7.279, PCO2 is 27.1, PO2 is 123.2 and bicarb is 12.4. Glucoses are under fairly good control. Protein and albumin are low. White count is 17,600 with 90 segs. H&H is 10.0 /30.5 and platelets of 279,000. Blood cultures are growing Citrobacter. This is sensitive to the patient's present antibiotic. Patient had abdominal surgery on 03/06/2017. Dr. Haywood and I have discussed the results. Patient did well in the perioperative period. Creatinine is 10.2. BUN is 105. Sodium potassium chloride are normal. Yesterday the patient was able to do 3 hours of CPAP postop. We will continue to weaning protocol and as mentioned above correction of his metabolic acidosis will go a long ways in the weaning process. 03/08/2017. Chest x-ray shows heart is top normal in size pulmonary arteries are normal there is scattered calcifications of both lungs and there is slight increase in interstitial markings inferior to the right hilum. The chest x-ray is stable. ABGs on mechanical ventilation show a pH of 7.32, PCO2 of 30.8, PO2 of 104, bicarbonate 15.6. Yesterday the patient went through stage IV to weaning protocol and did very well. Today will advance to stage V. White blood cell count is 15,188 segs. H&H is dropped 8.7 are 26.2. Platelets 245, 000. Glucoses are mildly elevated. This patient is postop abdominal surgery 2. He had a colon cancer. I do not see any path report so far 03/09/2017. Chest x-ray shows stable cardiomegaly. Old scarring in calcification in the right hilum. I see no infiltrates and no congestive heart failure. ABGs on mechanical ventilation and FiO2 is 60% shows a pH 7.39, PCO2 32, PO2 of 170 bicarbonate 20.4. H&H is dropped to 7.0/21.6. I have ordered 2 units of packed red blood cells. This patient needs oxygen carrying capacity in order to weaning. Yesterday the patient had about 12 hours on CPAP.His dialysis catheter has clotted. 03/10/2017. Chest x-ray shows dense calcified scarring in the right hilum. There is a possible faint infiltrate in the left lower lung. Heart size is top normal and the lung bean are otherwise clear. This patient continues to make excellent progress on his weaning trials and hopefully he will be ready for extubation in the next day or 2. Yesterday he did 16 hours of CPAP. He still has an NG tube in place and he has copious NG bilious-appearing drainage. There are no new cultures. His ABGs on mechanical ventilation FiO2 of 60% shows a pH 7.42, PCO2 32, PO2 of 139 and a bicarb of 22. Posttransfusion H&H is 9.0/29.9 with a white count 11,600 and platelet count 226,000. Glucose is under fair control. Patient had dialysis yesterday and tolerated this well. His better acid-base balance is going to help with weaning from mechanical ventilator. 03/11/2017. The patient was seen today along with his nurse Scarlet Hughes RN. The patient is doing well on his weaning protocol. We have asked that he be started on T-tube trials 3 times daily and for these to be advanced as tolerated. Tomorrow he will be placed on a T-tube at 5 AM and ABGs will be drawn at [address] Mao will review these and see if the patient will be ready for extubation at that time. We have discussed the case with Dr. Bunch and coordinated our care. 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 He is continuing with dialysis as per nephrology. There are no new cultures. Medications have been reviewed. We made no changes today. Labs been reviewed. White count is 12,700 with 84.7% segs; H&H 8.9/26.0; platelet count 258,000; creatinine 7.40, BUN 108, sodium 132, potassium 2.9 Exam (Progress Note) - Constitutional Vitals: Period Temp Pulse Resp BP Sys/Florez Pulse Ox Last 24 Hr 97.1 F-100.4 F 20-102 12-26 80-169/56-98 94-100 Exam: Chest is fairly clear Heart no gallop Abdomen is postsurgical Extremities with nothing to suggest acute deep venous thrombophlebitis Psychiatric sedated, but nursing staff reports this is decreased he will wake up and follow commands Neurologic unchanged Plan: Continue with the weaning protocol, but we have asked for him to be advanced to the T-tube stage with T-tube trials 3 times daily and advance as tolerated. In the morning, he will be placed on a T-tube at 5 AM and ABGs will be obtained at 7 a.m. We will be out of town for the next week. Dr. Mao will assume his pulmonary care beginning 03/12/2017. Results - Labs CBC & BMP: 03/11/17 07:07 03/11/17 07:07
[2017-03-11] MEDS: FAT EMULSION 20% 250 ML IV SCH (15:14)
[2017-03-11] MEDS ORDERED: ALTEPLASE 2 MG VIAL IV PRN (16:46)
[2017-03-11] MEDS: TRACE ELEMENTS IV SCH (17:26)
[2017-03-11] MEDS: [UNRECOGNIZED DRUG - OTHER] IV SCH (17:26)
[2017-03-11] MEDS: INSULIN REGULAR IV SCH (17:26)
[2017-03-11] MEDS: MULTIVITAMIN IV SCH (17:26)
--- NOTE | 2017-03-11 19:41 | Dialysis Note ---
Dialysis Note - Dialysis Note Patient seen on dialysis. Did have to have Activase due to catheter flow. Blood pressure is 170/80. Patient's ventilated. Lungs clear anterior. Abdomen soft.
[2017-03-11] MEDS: SODIUM BICARB INJ 150 MEQ in STERILE WATER INJ 1,000 ML IV SCH (21:16)
[2017-03-12] MEDS: ERTAPENEM 1,000 MG in SODIUM CHLORIDE 0.9% 100 ML IV SCH (00:32)
[2017-03-12] MEDS: INSULIN REGULAR 100 UNIT/ML SUBCUT SCH ×4 (00:32→18:16)
[2017-03-12 03:36] LABS: ABG Base Excess -2.7 MMOL/L (-2.5-2.5); ABG HCO3 22.1 MMOL/L (20-26); ABG PH 7.446 (7.35-7.45); ABG TCO2 19.3 MMOL/L (23-27)
--- NOTE | 2017-03-12 07:10 | Nephrology Progress Note ---
Nephrology - PN: Subj Interval history: Patient tolerated hemodialysis on yesterday. He appears much more comfortable today. Blood pressure stable at 134/80. Patient has been undergoing some weaning trials. The patient is awake. Exam (PN)-Nephrology - Vital Signs Vital signs: Period Temp Pulse Resp BP Sys/Florez Pulse Ox Last 24 Hr 96.8 F-100.7 F 20-108 12-89 83-179/55-96 95-100 - General Appearance General appearance: well-developed, intubated EENT: ATNC Respiratory: clear Cardiology: no edema, regular rate, regular rhythm Gastrointestinal: normoactive bowel sounds - Lab 03/11/17 07:07 03/11/17 07:07 Most recent lab results ABG pH 7.446 (7.35-7.45) 03/12/17 03:20 ABG pCO2 30.0 MM HG (35-48) L 03/12/17 03:20 ABG pO2 195.0 MM HG (80-95) H 03/12/17 03:20 ABG HCO3 22.1 MMOL/L (20-26) 03/12/17 03:20 ABG O2 Saturation 99.0 % (95-100) 03/12/17 03:20 Calcium 7.7 MG/DL (8.5-10.1) L 03/11/17 07:07 Phosphorus 5.1 MG/DL (2.5-4.9) H 03/11/17 07:07 Magnesium 2.4 MG/DL (1.8-2.4) 03/08/17 05:01 Assessment and Plan (1) Hypokalemia Status: Acute Current Visit: Yes (2) Type 2 diabetes mellitus Status: Chronic Current Visit: No Qualifiers: Diabetes mellitus complication detail: with chronic kidney disease Chronic kidney disease stage: on chronic dialysis (3) Large bowel obstruction Status: Acute Current Visit: Yes (4) Acute on chronic renal failure Status: Acute Assessment and plan: At present patient is on schedule hemodialysis. Current Visit: Yes Qualifiers: Chronic kidney disease stage: on chronic dialysis
--- NOTE | 2017-03-12 07:10 | Event Note ---
He is stable. He is on T-tube and may be able to come off the ventilator. He is tolerating tube feeds. His abdomen is nondistended. He is getting wound care. His lab work is pending this morning.
[2017-03-12 07:14] LABS: Albumin 1.4 G/DL (3.4-5.0); Calcium 7.8 MG/DL (8.5-10.1); Osmolality,Calculated 302.4 MOS/KG (273-304); Phosphorous 4.7 MG/DL (2.5-4.9)
[2017-03-12 07:32] LABS: ABG Base Excess -2.3 MMOL/L (-2.5-2.5); ABG HCO3 22.4 MMOL/L (20-26); ABG Oxygen Saturation 96.2 % (95-100); ABG PCO2 35.3 MM HG (35-48); ABG PH 7.403 (7.35-7.45); ABG PO2 87.8 MM HG (80-95); ABG TCO2 20.5 MMOL/L (23-27); Allen Test Positive
--- NOTE | 2017-03-12 08:09 | Pulmonology Progress Note ---
Pulmonary - PN: Subj Interval history: The patient is a 71-year-old white male that was found to have a colon cancer and had bowel obstruction and required 2 operations. He has a colostomy now. He has been on the ventilator and slow to wean. He did develop renal failure and has required dialysis. He was felt to have a component of heart failure. He has been weaning fairly well and doing T-tube trials. He does fatigue fairly easily. His chest x-ray is improving. His PO2 is a little on the low side for 60% oxygen. He has been hemodynamically stable. Exam (Progress Note) - Constitutional Vitals: Period Temp Pulse Resp BP Sys/Florez Pulse Ox Last 24 Hr 96.8 F-100.7 F 20-108 12-89 83-179/55-96 95-100 General appearance: normal weight, mild distress (He has mild distress well on T piece trial.) - Head Head exam: Present: normal inspection, normocephalic - Eye Eye exam: Present: EOMI. Absent: scleral icterus Pupils: Present: MEGHA - ENT ENT exam: Present: other (ET tube is in good position) - Neck Neck exam: Absent: lymphadenopathy, tenderness, thyromegaly - Respiratory Respiratory exam: Present: rhonchi, other (He has fairly good breath sounds bilaterally with some mild rhonchi.) - Cardiovascular Cardiovascular exam: Present: regular rate and rhythm. Absent: gallop, systolic murmur - GI/Abdominal GI/Abdominal exam: Present: soft, other (His wound is wrapped and he has a colostomy.) - Extremities Exam Extremities exam: Absent: calf tenderness, edema - Neurological Exam Neurological exam: Present: alert - Psychiatric Psychiatric exam: Present: anxious - Skin Skin exam: Present: warm, dry Results - Labs CBC & BMP: 03/11/17 07:07 03/12/17 06:30 Labs: PO2 is 87 with a PCO2 of 35 and a pH of 7.4 - Diagnostic Findings Procedure: Chest x-ray: image reviewed by me, report reviewed by me (Chest x- ray shows improvement in the infiltrates in the bases.) Assessment and Plan (1) Colon cancer Status: Acute Assessment and plan: Patient had a bowel obstruction and had surgery and this was due to colon cancer. Current Visit: Yes (2) Large bowel obstruction Status: Acute Assessment and plan: Patient is postop with colon cancer resection. Current Visit: Yes (3) Acute on chronic renal failure Status: Acute Assessment and plan: Patient developed worsening renal failure and is on dialysis now. Current Visit: Yes Qualifiers: Chronic kidney disease stage: on chronic dialysis (4) Diabetes Status: Acute Assessment and plan: Patient's glucoses been monitored and his glucose was 204 this morning. Current Visit: Yes (5) Acute respiratory failure Status: Acute Assessment and plan: Patient continues to be on the ventilator and will continue with weaning. Current Visit: Yes (6) Gram negative septicemia Status: Acute Assessment and plan: The patient had Citrobacter in his blood culture and is getting treated for this. Current Visit: Yes
--- NOTE | 2017-03-12 08:47 | Hospitalist Progress Note ---
Assessment and Plan (1) Chronic renal failure Status: Chronic Assessment and plan: Dialysis triggered by this event, previously managed medically. 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 Surgical intervention 03/04 and 03/06 Current Visit: Yes (3) Acute respiratory failure Status: Acute Assessment and plan: History of obstructive sleep apnea, post-op ventilator dependence Current Visit: Yes Hospitalist: Subjective Interval history: 71-year-old male chronic renal insufficiency, hypertension, T2DM; presenting with colonic obstruction/ischemic perforation undergoing laparotomy with colon resection and colostomy construction with findings of mucinous adenocarcinoma. Blood culture on 04 March was positive for Citrobacter. He has postoperatively been mechanically ventilated. His maximum temperature in the last 24 hours has been 100.7. He is still on 60% oxygen with a calculated pO2/ FiO2 ratio of 325 and a history of LORRAINE Exam - Constitutional Vitals: Period Temp Pulse Resp BP Sys/Florez Pulse Ox Last 24 Hr 96.8 F-100.7 F 20-108 12-89 83-179/55-96 95-100 General appearance: over weight - Respiratory Respiratory exam: Absent: rales, rhonchi, wheezes - Cardiovascular Cardiovascular exam: Present: irregular rhythm, systolic murmur (Suggestive mitral annular calcification) - GI/Abdominal GI/Abdominal exam: Absent: normal bowel sounds, tenderness - Extremities Exam Extremities exam: Absent: edema - Neurological Exam Neurological exam: Absent: alert Results - Labs CBC & BMP: 03/11/17 07:07 03/12/17 06:30 Labs: PH 7.45 PCO2 30 PO2 195 - Diagnostic Findings Procedure: Chest x-ray: image reviewed by me (Low volumes bilaterally with prominent pulmonary trunks)
[2017-03-12] MEDS: MUPIROCIN 2% OINT 22 GM TUBE TOP SCH ×3 (09:49→20:58)
[2017-03-12] MEDS: PANTOPRAZOLE 40 MG VIAL IV SCH (09:50)
--- NOTE | 2017-03-12 12:36 | XRay Report ---
History: Patient on ventilator Date: 03/12/2017 Study: Chest x-ray AP portable Comparison exam: 03/11/2017 The supporting tubes are in generally satisfactory stable position. There is stable cardiomegaly. The mediastinal contours are unchanged. There is some continued hazy and strandy edema/infiltrate/atelectasis in the lower lungs. These changes are slightly increased on the right. There is no increasing pleural effusion. There is no pneumothorax. Osseous structures are similar. Impression: Mildly increased atelectasis/infiltrate/edema in the right lung base compared to the previous study. Otherwise unchanged PROCEDURE INTERPRETED AT [facility] DEPARTMENT OF RADIOLOGY Final Report Signed by: Dr. Ananya Blue
[2017-03-12] MEDS: FAT EMULSION 20% 250 ML IV SCH (16:19)
[2017-03-12] MEDS: MULTIVITAMIN IV SCH (17:27)
[2017-03-12] MEDS: [UNRECOGNIZED DRUG - OTHER] IV SCH (17:27)
[2017-03-12] MEDS: TRACE ELEMENTS IV SCH (17:27)
[2017-03-12] MEDS: INSULIN REGULAR IV SCH (17:27)
[2017-03-12] MEDS: PROPOFOL 1,000 MG/100 ML BOTTLE IV SCH ×2 (21:30)
[2017-03-12] MEDS: SODIUM BICARB INJ 150 MEQ in STERILE WATER INJ 1,000 ML IV SCH ×2 (21:30→23:20)
[2017-03-13] MEDS: ERTAPENEM 1,000 MG in SODIUM CHLORIDE 0.9% 100 ML IV SCH (00:33)
[2017-03-13] MEDS: INSULIN REGULAR 100 UNIT/ML SUBCUT SCH ×4 (00:34→18:18)
[2017-03-13 04:52] LABS: Calcium 7.6 MG/DL (8.5-10.1); Magnesium 1.9 MG/DL (1.8-2.4); Osmolality,Calculated 309.5 MOS/KG (273-304)
--- NOTE | 2017-03-13 08:17 | Hospitalist Progress Note ---
Assessment and Plan (1) Chronic renal failure Status: Chronic Assessment and plan: Dialysis triggered by this event, previously managed medically. 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 Surgical intervention 03/04 and 03/06 Current Visit: Yes (3) Acute respiratory failure Status: Acute Assessment and plan: History of obstructive sleep apnea, post-op ventilator dependence Current Visit: Yes Hospitalist: Subjective Interval history: 71-year-old male with chronic renal insufficiency, hypertension, type 2 diabetes mellitus; who presented with colonic obstruction associated with his bowel ischemia localized perforation. At laparotomy he was found to have a colonic mass subsequently documented to be a mucinous adenocarcinoma of the colon. Segment resection was undertaken and colostomy was placed. He was bacteremic with a positive blood culture for Citrobacter. He is continued on the mechanical ventilation postoperatively with a history of obstructive sleep apnea in the past. He has been initiated on dialysis with this acute episode. This morning he is awake and looking about. He does not follow instructions but I am told that he has a significant preexistent hearing impairment. Overnight vital signs been stable rhythm continues atrial fibrillation with variable ambient ventricular premature depolarizations. Exam - Constitutional Vitals: Period Temp Pulse Resp BP Sys/Florez Pulse Ox Last 24 Hr 97.2 F-99.7 F 66-104 12-40 88-158/51-98 93-100 General appearance: over weight - Respiratory Respiratory exam: Present: clear to auscultation bilaterally. Absent: rales, rhonchi, wheezes - Cardiovascular Cardiovascular exam: Present: irregular rhythm, systolic murmur - GI/Abdominal GI/Abdominal exam: Present: hypoactive bowel sounds. Absent: distended - Extremities Exam Extremities exam: Absent: edema - Neurological Exam Neurological exam: Present: alert Results - Labs CBC & BMP: 03/11/17 07:07 03/13/17 03:03
--- NOTE | 2017-03-13 09:10 | Pulmonology Progress Note ---
Pulmonary - PN: Subj Interval history: The patient is a 71-year-old white male that was found to have a colon cancer and had bowel obstruction and required 2 operations. He has a colostomy now. He has been on the ventilator and slow to wean. He did develop renal failure and has required dialysis. He was felt to have a component of heart failure. He has been weaning fairly well and doing T-tube trials. He does fatigue fairly easily. His chest x-ray is improving. Yesterday he has done fairly well on his T-piece trials but he does fatigue. His vital signs have been reasonably stable. Overall he is comfortable at present. Exam (Progress Note) - Constitutional Vitals: Period Temp Pulse Resp BP Sys/Florez Pulse Ox Last 24 Hr 97.2 F-99.7 F 66-104 12-40 88-158/51-98 93-100 Exam: General appearance: normal weight, mild distress (He has mild distress well on T piece trial. He looks reasonably comfortable on the ventilator.) - Head Head exam: Present: normal inspection, normocephalic - Eye Eye exam: Present: EOMI. Absent: scleral icterus Pupils: Present: MEGHA - ENT ENT exam: Present: other (ET tube is in good position) - Neck Neck exam: Absent: lymphadenopathy, tenderness, thyromegaly - Respiratory Respiratory exam: Present: He has fairly good breath sounds bilaterally with some minimal rhonchi. - Cardiovascular Cardiovascular exam: Present: regular rate and rhythm. Absent: gallop, systolic murmur - GI/Abdominal GI/Abdominal exam: Present: soft, other (His wound is wrapped and he has a colostomy.) - Extremities Exam Extremities exam: Absent: calf tenderness, edema - Neurological Exam Neurological exam: Present: alert - Psychiatric Psychiatric exam: Present: anxious - Skin Skin exam: Present: warm, dry Results - Labs CBC & BMP: 03/11/17 07:07 03/13/17 03:03 Assessment and Plan (1) Colon cancer Status: Acute Assessment and plan: Patient had a bowel obstruction and had surgery and this was due to colon cancer. Current Visit: Yes (2) Large bowel obstruction Status: Acute Assessment and plan: Patient is postop with colon cancer resection. His abdomen is doing better. Current Visit: Yes (3) Acute on chronic renal failure Status: Acute Assessment and plan: Patient developed worsening renal failure and is on dialysis now. Overall he has done reasonably well on dialysis. Current Visit: Yes Qualifiers: Chronic kidney disease stage: on chronic dialysis (4) Diabetes Status: Acute Assessment and plan: Patient's glucoses been monitored and his glucose was 241 this morning. Current Visit: Yes (5) Acute respiratory failure Status: Acute Assessment and plan: Patient continues to be on the ventilator and will continue with weaning. Will have him try CPAP today for a prolonged period and possibly extubate tomorrow if everything looks okay. Current Visit: Yes (6) Gram negative septicemia Status: Acute Assessment and plan: The patient had Citrobacter in his blood culture and is getting treated for this. Current Visit: Yes
[2017-03-13] MEDS: MUPIROCIN 2% OINT 22 GM TUBE TOP SCH ×3 (09:32→19:30)
--- NOTE | 2017-03-13 09:33 | Nephrology Progress Note ---
Nephrology - PN: Subj Interval history: Patient tolerated hemodialysis on yesterday. He appears much more comfortable today. Blood pressure stable at 134/80. Patient has been undergoing some weaning trials. The patient is awake. 03/13/2017. The patient is resting comfortably. Is doing some moving trials. No other acute changes. Plan for dialysis on Tuesday. Exam (PN)-Nephrology - Vital Signs Vital signs: Period Temp Pulse Resp BP Sys/Florez Pulse Ox Last 24 Hr 97.2 F-99.7 F 66-104 12-40 88-158/51-98 93-100 - General Appearance General appearance: intubated, frail EENT: ATNC Neck: supple Respiratory: clear Cardiology: regular rate, regular rhythm Gastrointestinal: normoactive bowel sounds, no tenderness Integumentary: no rash Musculoskeletal: no clubbing - Lab 03/11/17 07:07 03/13/17 03:03 Most recent lab results ABG pH 7.403 (7.35-7.45) 03/12/17 07:33 ABG pCO2 35.3 MM HG (35-48) 03/12/17 07:33 ABG pO2 87.8 MM HG (80-95) 03/12/17 07:33 ABG HCO3 22.4 MMOL/L (20-26) 03/12/17 07:33 ABG O2 Saturation 96.2 % (95-100) 03/12/17 07:33 Calcium 7.6 MG/DL (8.5-10.1) L 03/13/17 03:03 Phosphorus 4.7 MG/DL (2.5-4.9) 03/12/17 06:30 Magnesium 1.9 MG/DL (1.8-2.4) 03/13/17 03:03 Assessment and Plan (1) Hypokalemia Status: Acute Assessment and plan: Which is being supplemented. Current Visit: Yes (2) Type 2 diabetes mellitus Status: Chronic Current Visit: No Qualifiers: Diabetes mellitus complication detail: with chronic kidney disease Chronic kidney disease stage: on chronic dialysis (3) Large bowel obstruction Status: Acute Current Visit: Yes (4) Acute on chronic renal failure Status: Acute Assessment and plan: At present patient is on schedule hemodialysis as scheduled. Current Visit: Yes Qualifiers: Chronic kidney disease stage: on chronic dialysis
[2017-03-13] MEDS: PANTOPRAZOLE 40 MG VIAL IV SCH (09:34)
--- NOTE | 2017-03-13 10:18 | Event Note ---
Patient is stable and tolerating tube feeds now at a goal rate. He is afebrile with stable vital signs. He did not have a CBC this morning and I will order this. His white blood cell count was up a bit a couple of days ago. I think we can stop his TPN at this point and this will allow us to get his central line out. His central line could be a source of his white count. His abdomen appears benign.
[2017-03-13 11:15] LABS: Basophils % 0.1 % (0.0-0.8); Eosinophils # 0.4 10*3/uL (0.0-0.87); Eosinophils % 2.3 % (0.00-10.9); Hematocrit 25.1 VOL% (42.0-52.0); Hemoglobin 8.3 GM/DL (14.0-18.0); Immature Granulocytes % 2.2 %; Immature Granulocytes Absolute 0.33 #; Lymphocytes # 0.6 10*3/uL (1.4-4.0); Lymphocytes % 3.9 % (21.2-54.2); Mean Corpuscular HGB Conc 33.1 GM/DL (32-36); Mean Corpuscular Hemoglobin 28 PG (27-34); Mean Corpuscular Volume 85.1 FL (87-102); Monocytes # 1.1 10*3/uL (0.11-0.8); Monocytes % 7.1 % (1.7-12.7); Neutrophils # 12.9 10*3/uL (1.4-7.4); Neutrophils % 84.4 % (38.7-73.9); Platelet Count 300 T/CUMM (130-400); Red Blood Count 2.95 MC/CUMM (3.8-5.5); Red Cell Distribution Width 15.6 % (9.3-17.3); White Blood Count 15.3 T/CUMM (4-12)
[2017-03-13 11:38] LABS: Eosinophils 3 % (0-10); Hypochromasia 1+; Lymphocytes 3 % (20-55); Metamyelocytes 2 %; Segmented Neutrophils 89 % (50-85); Total Cells Counted 100
[2017-03-13 11:39] LABS: Microcytosis Slight; Ovalocytes Slight
[2017-03-13] MEDS: POTASSIUM CHLORIDE 20 MEQ/15 ML UDCUP PER TUBE SCH ×3 (15:40→21:28)
[2017-03-13] MEDS: PROPOFOL 1,000 MG/100 ML BOTTLE IV SCH (18:27)
[2017-03-13] MEDS: SODIUM BICARB INJ 150 MEQ in STERILE WATER INJ 1,000 ML IV SCH (21:29)
[2017-03-14] MEDS: INSULIN REGULAR 100 UNIT/ML SUBCUT SCH ×5 (00:30→23:39)
[2017-03-14] MEDS: ERTAPENEM 1,000 MG in SODIUM CHLORIDE 0.9% 100 ML IV SCH (00:31)
[2017-03-14 03:32] LABS: ABG Base Excess -2.9 MMOL/L (-2.5-2.5); ABG HCO3 20.8 MMOL/L (20-26); ABG PCO2 31.5 MM HG (35-48); ABG PH 7.438 (7.35-7.45); ABG PO2 122.8 MM HG (80-95); ABG TCO2 21.8 MMOL/L (23-27); Allen Test Positive; Pt O2 Delivery Device Ventilator
[2017-03-14 05:34] LABS: Basophils % 0.2 % (0.0-0.8); Eosinophils # 0.4 10*3/uL (0.0-0.87); Eosinophils % 2.5 % (0.00-10.9); Hematocrit 26.7 VOL% (42.0-52.0); Immature Granulocytes % 1.8 %; Immature Granulocytes Absolute 0.31 #; Lymphocytes # 0.8 10*3/uL (1.4-4.0); Lymphocytes % 4.5 % (21.2-54.2); Mean Corpuscular HGB Conc 33.7 GM/DL (32-36); Mean Corpuscular Hemoglobin 28 PG (27-34); Monocytes # 1.5 10*3/uL (0.11-0.8); NRBC # 0.02 10*3/uL; Neutrophils # 13.9 10*3/uL (1.4-7.4); Platelet Count 311 T/CUMM (130-400); Red Blood Count 3.18 MC/CUMM (3.8-5.5); Red Cell Distribution Width 15.7 % (9.3-17.3)
[2017-03-14 05:57] LABS: Band Neutrophils 2 % (0-10); Eosinophils 2 % (0-10); Lymphocytes 9 % (20-55); Segmented Neutrophils 76 % (50-85); Total Cells Counted 100
[2017-03-14 05:58] LABS: Anisocytosis 1+; Microcytosis 1+; Ovalocytes Few; Platelet Estimate Normal
[2017-03-14] MEDS: PROPOFOL 1,000 MG/100 ML BOTTLE IV SCH (06:29)
[2017-03-14 06:42] LABS: Osmolality,Calculated 314.2 MOS/KG (273-304); Potassium 4.4 MMOL/L (3.5-5.1)
[2017-03-14 07:03] LABS: Prealbumin 16.7 MG/DL (20-40)
--- NOTE | 2017-03-14 07:45 | XRay Report ---
Portable chest Exam date: 03/14/2017 4:00 AM Indication: Shortness of breath, cough respiratory failure Comparison: March 12, 2017 0616 hours Findings: Cardiomediastinal contours are stable with support tubes and lines remain in satisfactory position. Low lung volumes with increasing left infrahilar density. No acute osseous abnormalities. Visualized upper abdomen demonstrates no acute pathology. Impression: Low lung volumes with increasing left infrahilar density, atelectasis versus infectious process PROCEDURE INTERPRETED AT [facility] DEPARTMENT OF RADIOLOGY Final Report Signed by: Artem Grant
--- NOTE | 2017-03-14 08:52 | Event Note ---
Patient status post ex lap. He was found to have an obstructing colon cancer in the descending colon with dilated bowel and the cecal perforation. He had a left hemicolectomy and repair of the cecal perforation. Second look procedure performed with further removal of colon and creation of end colostomy. He has been slowly improving. He experienced renal failure and now undergoing HD per nephrology. He remains intubated and sedated. He has been off all pressors for several days. Tolerating tube feeding. On exam: He remains intubated. He does not open his eyes at time of my exam. His abdomen is soft nondistended and the stoma is functioning well. Stoma is pink and patent and viable with a lot of stool in the bag. He has bowel sounds. The midline wound is clean. Labs reviewed. White blood cell count continues to increase - 17k today Plan: Tolerating tube feedings - continue. Patient is afebrile with worsening leukocytosis. HD catheter present as well as patient is at high risk for intra- abdominal abscess. Will review plan with Dr. Haywood.
[2017-03-14] MEDS: PANTOPRAZOLE 40 MG VIAL IV SCH (08:56)
[2017-03-14] MEDS: MUPIROCIN 2% OINT 22 GM TUBE TOP SCH ×3 (08:59→21:13)
--- NOTE | 2017-03-14 08:59 | Pulmonology Progress Note ---
Pulmonary - PN: Subj Interval history: The patient is a 71-year-old white male that was found to have a colon cancer and had bowel obstruction and required 2 operations. He has a colostomy now. He has been on the ventilator and slow to wean. He did develop renal failure and has required dialysis. He was felt to have a component of heart failure. He has been weaning fairly well and doing T-tube trials. Yesterday he did well and he seems to be breathing better. His chest x-ray is reasonably stable. He will have dialysis today and then will try to extubate. Exam (Progress Note) - Constitutional Vitals: Period Temp Pulse Resp BP Sys/Florez Pulse Ox Last 24 Hr 97.1 F-97.7 F 70-95 13-24 93-171/55-107 91-100 Exam: General appearance: normal weight, no distress (He looks comfortable on the ventilator and is done well with CPAP. ) - Head Head exam: Present: normal inspection, normocephalic - Eye Eye exam: Present: EOMI. Absent: scleral icterus Pupils: Present: MEGHA - ENT ENT exam: Present: other (ET tube is in good position) - Neck Neck exam: Absent: lymphadenopathy, tenderness, thyromegaly - Respiratory Respiratory exam: Present: He has fairly good breath sounds bilaterally with some minimal rhonchi. He is moving air fairly well. - Cardiovascular Cardiovascular exam: Present: regular rate and rhythm. Absent: gallop, systolic murmur - GI/Abdominal GI/Abdominal exam: Present: soft, other (His wound is wrapped and he has a colostomy.) - Extremities Exam Extremities exam: Absent: calf tenderness, edema - Neurological Exam Neurological exam: Present: alert - Psychiatric Psychiatric exam: Present: He is sedated and comfortable. - Skin Skin exam: Present: warm, dry Results - Labs CBC & BMP: 03/14/17 03:46 03/14/17 03:46 Labs: PO2 is 122 with a PCO2 of 31 and pH of 7.43 - Diagnostic Findings Procedure: Chest x-ray: image reviewed by me, report reviewed by me (Chest x- ray stable and looks better.) Assessment and Plan (1) Colon cancer Status: Acute Assessment and plan: Patient had a bowel obstruction and had surgery and this was due to colon cancer. Current Visit: Yes (2) Large bowel obstruction Status: Acute Assessment and plan: Patient is postop with colon cancer resection. His abdomen is doing better. His wounds are doing okay. Current Visit: Yes (3) Acute on chronic renal failure Status: Acute Assessment and plan: Patient developed worsening renal failure and is on dialysis now. Overall he has done reasonably well on dialysis. His creatinine is 8.3 today. Current Visit: Yes Qualifiers: Chronic kidney disease stage: on chronic dialysis (4) Diabetes Status: Acute Assessment and plan: Patient's glucoses been monitored and his glucose was 207 this morning. Current Visit: Yes (5) Acute respiratory failure Status: Acute Assessment and plan: Patient continues to be on the ventilator and will continue with weaning. He did well on CPAP and his x-ray looks okay. We will try to extubate today after dialysis. Current Visit: Yes (6) Gram negative septicemia Status: Acute Assessment and plan: The patient had Citrobacter in his blood culture and is getting treated for this. Current Visit: Yes
[2017-03-14] MEDS ORDERED: MORPHINE 2 MG/1 ML SYRINGE ONE (12:04)
[2017-03-14] MEDS ORDERED: MORPHINE 2 MG/1 ML SYRINGE IV ONE (12:05)
--- NOTE | 2017-03-14 12:13 | Nephrology Progress Note ---
Nephrology - PN: Subj Interval history: Patient remains intubated and sedate. Physical exam general the patient's chronically ill-appearing, heart is regular rate and rhythm, he has 1-2+ edema, lungs are clear to auscultation anteriorly, abdomen is soft with occasional bowel sounds. Assessment/plan 1. Acute renal failure on chronic renal failure-patient's creatinine continues to increase despite some increased urine output. Will plan on continuing intermittent hemodialysis. 2. Respiratory failure-sounds like the patient may have an attempt at extubation postdialysis today 3. Bowel obstruction-patient status post exploratory laparotomy, he is tolerating tube feeds presently 4. Diabetes mellitus this is controlled Exam (PN)-Nephrology - Vital Signs Vital signs: Period Temp Pulse Resp BP Sys/Florez Pulse Ox Last 24 Hr 97.1 F-97.7 F 70-95 13-24 93-171/55-107 91-100 - Lab 03/14/17 03:46 03/14/17 03:46 Most recent lab results ABG pH 7.438 (7.35-7.45) 03/14/17 03:25 ABG pCO2 31.5 MM HG (35-48) L 03/14/17 03:25 ABG pO2 122.8 MM HG (80-95) H 03/14/17 03:25 ABG HCO3 20.8 MMOL/L (20-26) 03/14/17 03:25 ABG O2 Saturation 98.0 % (95-100) 03/14/17 03:25 Calcium 8.0 MG/DL (8.5-10.1) L 03/14/17 03:46 Phosphorus 5.0 MG/DL (2.5-4.9) H 03/14/17 03:46 Magnesium 2.0 MG/DL (1.8-2.4) 03/14/17 03:46
--- NOTE | 2017-03-14 12:16 | Operative Note ---
Date of procedure: 03/14/17 Pre-op diagnosis: Renal failure, leukocytosis Post-op diagnosis: same Procedure: Procedure performed: Exchange of right internal jugular central venous catheter over a guidewire Procedure in detail: With the patient lying supine in his hospital bed the right neck was prepped and draped in usual sterile fashion including the existing central line. After procedural pause the sutures holding the existing catheter were removed and a guidewire placed through the distal limb of the catheter with no resistance. The catheter was removed in its entirety over the guidewire leaving the guidewire in place. The tip of the old catheter was cut and sent in a sterile specimen cup for culture. A new hemodialysis catheter was then inserted over the guidewire. It was a 20 cm catheter which was the only one available non-cuffed. Advancement was performed using Seldinger technique and the guidewire was removed. It was secured in place with 2-0 silk suture. All ports withdrew and flushed easily and were locked with saline. Sterile dressings applied and the patient tolerated the procedure well. Anesthesia: local Surgeon / Physician: Michael Haywood Estimated blood loss: other (Less than 5 cc) Specimens: other (Catheter tip for culture) Condition: stable Disposition: no change Results - Labs CBC & BMP: 03/14/17 03:46 03/14/17 03:46 Discharge Plan - Discharge Medications No Action Lisinopril 30 mg PO DAILY Allopurinol [Zyloprim] 100 mg PO DAILY Montelukast Tab [Singulair Tab] 10 mg PO DAILY Furosemide Tab [Lasix Tab] 40 mg PO DAILY Umeclidinium [facility] [Incruse Ellipta] 1 puff INH DAILY Pantoprazole Tab [Protonix Tab] 40 mg PO DAILY amLODIPine [Norvasc] 10 mg PO DAILY - Follow Up or Referral - Forms/Instructions
--- NOTE | 2017-03-14 12:56 | CT Report ---
History: Colon cancer status post recent resection. Leukocytosis Date: 03/14/2017 Study: CT abdomen and pelvis without IV contrast Comparison exam: March 04, 2017 Technique: Spiral CT sections were obtained from the lung bases to the pubic symphysis following oral contrast. CT abdomen: There is mild bilateral pleural effusion. There is mild atelectatic change in the lower lobes. There is mild perihepatic and perisplenic free fluid. There is cholelithiasis as before. The liver, spleen, pancreas, adrenal glands, and bile ducts are unchanged in appearance. Numerous rounded renal lesions are noted bilaterally without change. These may represent cysts. Please refer to the March 04, 2017 renal ultrasound report. There is no aneurysm of the moderately calcified abdominal aorta. The patient has undergone partial resection of the transverse and left colon. There is a colostomy in the right mid abdomen. There is no current phillip bowel obstruction. There is a generally rounded localized fluid collection without definite discrete capsule in the right lower quadrant, measuring 54 x 38 x 40 mm. This could represent early abscess. There is diverticulosis of the sigmoid colon. There is a Morris's pouch present. There is mild lumbar spondylosis. CT pelvis: Sanchez catheter is positioned with its tip in the lumen of urinary bladder. There is no pelvic lymphadenopathy. There is no new pelvic soft tissue mass. Impression: Localized fluid collection in the right lower quadrant which could represent potential early abscess Postop interval partial colectomy and right colostomy Postoperative bibasilar atelectasis and mild bilateral pleural effusion Otherwise unchanged from previous study. Cholelithiasis as before The CT exam was performed using one or more of the following dose reduction techniques: Automated exposure control, adjustment of the mA and/or kV according to patient size, or use of iterative reconstruction technique. PROCEDURE INTERPRETED AT [facility] DEPARTMENT OF RADIOLOGY Final Report Signed by: Dr. Ananya Blue
--- NOTE | 2017-03-14 12:58 | XRay Report ---
History: Central line placement Date: 03/14/2017 at 12:02 PM Study: Chest x-ray AP portable Comparison exam: 03/14/2017 at 3:08 AM The right IJ central line is positioned with its tip at the right atrial level. The endotracheal and nasogastric tubes remain in satisfactory position. There is stable cardiomegaly. The mediastinal contours are unchanged. There is some bibasilar atelectasis/infiltrate as before. There is mild bilateral pleural effusion. There is no pneumothorax. Osseous structures are unchanged. Impression: No evidence of a pneumothorax following central line exchange. Continued bibasilar atelectasis/infiltrate and mild bilateral pleural effusion as before PROCEDURE INTERPRETED AT [facility] DEPARTMENT OF RADIOLOGY Final Report Signed by: Dr. Ananya Blue
[2017-03-14] MEDS ORDERED: FUROSEMIDE 20 MG/2 ML VIAL IV ONE (13:42)
--- NOTE | 2017-03-14 13:47 | Hospitalist Progress Note ---
Assessment and Plan (1) Large bowel obstruction Status: Acute Assessment and plan: s/p partial colectomy and end colostomy. Current Visit: Yes (2) Acute respiratory failure Status: Acute Assessment and plan: extubation today Current Visit: Yes (3) Anemia Status: Acute Assessment and plan: Hemoglobin stable continue protonix Current Visit: Yes (4) Acute on chronic renal failure Status: Acute Assessment and plan: cont dialysis, still has evidence of volume overload Current Visit: Yes Qualifiers: Chronic kidney disease stage: on chronic dialysis (5) Hypotension Status: Acute Assessment and plan: resolved off pressors Current Visit: Yes (6) Metabolic acidosis Status: Acute Assessment and plan: resolving with dialysis Current Visit: Yes (7) Diabetes Status: Acute Assessment and plan: ISC, stopped tpn, tube feeding on hold Current Visit: Yes (8) Atrial flutter Status: Acute Assessment and plan: afib at 83. Current Visit: Yes (9) Gram negative septicemia Status: Acute Assessment and plan: growing citrobacter farmeri change to rocephin. repeat blood cx Current Visit: Yes (10) Leukocytosis Status: Acute Assessment and plan: Worsening on Invanz. CT of the abdomen shows an abscess in the right lower quadrant. I have discussed with Dr. Haywood he will decide whether he wants interventional radiology to drain it tomorrow. cryolite recovery operator to Rocephin and clindamycin. Repeat blood culture Current Visit: Yes Hospitalist: Subjective Interval history: Plan to extubate today. Family is only visited once. Made referral to LTAC. Patient has a colostomy in good output. Plan for dialysis today Exam - Constitutional Vitals: Period Temp Pulse Resp BP Sys/Florez Pulse Ox Last 24 Hr 97.1 F-97.7 F 70-95 13-24 93-171/55-107 91-100 Exam: Heart Rate-[regular rate and rhythm] Lungs-[clear but diminished GI-[Good bs, alot of stool from colostomy Ext-[no edema, scd] Neuro sedated and intubated cannot assess psych sedated and intubated cannot assess General [no acute distress] Results - Labs CBC & BMP: 03/14/17 03:46 03/14/17 03:46 Lab Results: I have reviewed the past 24 hour labs Labs: Blood cultures growing Citrobacter farmeri - Diagnostic Findings Procedure: Chest x-ray: report reviewed by me (Bilateral pleural fluids ), CT Abdomen and Pelvis: report reviewed by me (RLQ abscess )
[2017-03-14] MEDS: CLINDAMYCIN INJ 600 MG in PREMIX 1 EACH IV SCH ×2 (14:30→22:45)
--- NOTE | 2017-03-14 14:59 | Nephrology Progress Note ---
Nephrology - PN: Subj Interval history: Patient seen on hemodialysis he is tolerating this well will continue his treatment unchanged. Exam (PN)-Nephrology - Vital Signs Vital signs: Period Temp Pulse Resp BP Sys/Florez Pulse Ox Last 24 Hr 96.9 F-97.7 F 62-95 13-24 93-163/55-107 91-100 - Lab 03/14/17 03:46 03/14/17 03:46 Most recent lab results ABG pH 7.438 (7.35-7.45) 03/14/17 03:25 ABG pCO2 31.5 MM HG (35-48) L 03/14/17 03:25 ABG pO2 122.8 MM HG (80-95) H 03/14/17 03:25 ABG HCO3 20.8 MMOL/L (20-26) 03/14/17 03:25 ABG O2 Saturation 98.0 % (95-100) 03/14/17 03:25 Calcium 8.0 MG/DL (8.5-10.1) L 03/14/17 03:46 Phosphorus 5.0 MG/DL (2.5-4.9) H 03/14/17 03:46 Magnesium 2.0 MG/DL (1.8-2.4) 03/14/17 03:46
[2017-03-14] MEDS: SODIUM BICARBONATE 650 MG TABLET PO SCH ×2 (15:19→21:13)
[2017-03-14] MEDS: cefTRIAXone 2,000 MG in SODIUM CHLORIDE 0.9% 100 ML IV SCH (15:19)
[2017-03-15 04:20] LABS: Basophils % 0.2 % (0.0-0.8); Eosinophils # 0.2 10*3/uL (0.0-0.87); Eosinophils % 1.5 % (0.00-10.9); Hematocrit 23.5 VOL% (42.0-52.0); Hemoglobin 7.6 GM/DL (14.0-18.0); Immature Granulocytes % 1.4 %; Immature Granulocytes Absolute 0.19 #; Lymphocytes # 0.4 10*3/uL (1.4-4.0); Lymphocytes % 3.1 % (21.2-54.2); Mean Corpuscular HGB Conc 32.3 GM/DL (32-36); Mean Corpuscular Hemoglobin 27 PG (27-34); Mean Corpuscular Volume 84.8 FL (87-102); Mean Platelet Volume 11.9 FL (9.6-12.0); Monocytes % 7.4 % (1.7-12.7); Neutrophils # 11.9 10*3/uL (1.4-7.4); Neutrophils % 86.4 % (38.7-73.9); Platelet Count 376 T/CUMM (130-400); Red Blood Count 2.77 MC/CUMM (3.8-5.5); Red Cell Distribution Width 15.6 % (9.3-17.3); White Blood Count 13.7 T/CUMM (4-12)
[2017-03-15 05:03] LABS: Calcium 8.4 MG/DL (8.5-10.1); Osmolality,Calculated 304.8 MOS/KG (273-304)
[2017-03-15 05:11] LABS: Hypochromasia 1+; Microcytosis 1+; Platelet Estimate Normal
[2017-03-15] MEDS: INSULIN REGULAR 100 UNIT/ML SUBCUT SCH ×3 (05:34→17:25)
[2017-03-15] MEDS: CLINDAMYCIN INJ 600 MG in PREMIX 1 EACH IV SCH ×3 (05:49→22:15)
--- NOTE | 2017-03-15 06:56 | Nephrology Progress Note ---
Nephrology - PN: Subj Interval history: Patient is extubated he is awake and seems to comprehend and is verbalizing some. Physical exam general the patient is chronically ill-appearing, heart is regular rate and rhythm, he has trace pretibial edema, lungs are clear to auscultation anteriorly, abdomen is soft with decreased bowel sounds Assessment/plan 1. Acute renal failure-patient's urine output is increasing his creatinine is down to 6 mg/dL however this is with hemodialysis yesterday, will see what his creatinine looks like tomorrow I may hold his hemodialysis tomorrow to see if he does not start to recover some kidney function. 2. Bowel obstruction-patient status post exploratory laparotomy, apparently has what looks like an abscess by a recent CT and is to have a percutaneous drain placed today 3. Anemia-patient's hematocrit is 23% this is down from around 26% yesterday we will continue to monitor this, he is off pressor support therapy 4. Diabetes mellitus Exam (PN)-Nephrology - Vital Signs Vital signs: Period Temp Pulse Resp BP Sys/Florez Pulse Ox Last 24 Hr 96.9 F-98.9 F 62-108 14-26 97-163/62-103 95-100 - Lab 03/15/17 04:00 03/15/17 04:00 Most recent lab results ABG pH 7.438 (7.35-7.45) 03/14/17 03:25 ABG pCO2 31.5 MM HG (35-48) L 03/14/17 03:25 ABG pO2 122.8 MM HG (80-95) H 03/14/17 03:25 ABG HCO3 20.8 MMOL/L (20-26) 03/14/17 03:25 ABG O2 Saturation 98.0 % (95-100) 03/14/17 03:25 Calcium 8.4 MG/DL (8.5-10.1) L 03/15/17 04:00 Phosphorus 5.0 MG/DL (2.5-4.9) H 03/14/17 03:46 Magnesium 2.0 MG/DL (1.8-2.4) 03/15/17 04:00
--- NOTE | 2017-03-15 07:52 | Pulmonology Progress Note ---
Pulmonary - PN: Subj Interval history: The patient is a 71-year-old white male that was found to have a colon cancer and had bowel obstruction and required 2 operations. He has a colostomy now. He has been on the ventilator and slow to wean. He did develop renal failure and has required dialysis. He was felt to have a component of heart failure. He has been weaning fairly well and doing T-tube trials. Yesterday we extubated him and he has done well with his breathing. He did have dialysis yesterday. He has another abscess in his abdomen and will have this drained by IR. He is somewhat depressed but seems to be doing okay otherwise. Exam (Progress Note) - Constitutional Vitals: Period Temp Pulse Resp BP Sys/Florez Pulse Ox Last 24 Hr 96.9 F-98.9 F 62-108 14-26 97-163/62-103 95-100 Exam: General appearance: normal weight, no distress (He looks comfortable on the ventilator and is done well with CPAP. ) - Head Head exam: Present: normal inspection, normocephalic - Eye Eye exam: Present: EOMI. Absent: scleral icterus Pupils: Present: MEGHA - ENT ENT exam: Present: He does look pale - Neck Neck exam: Absent: lymphadenopathy, tenderness, thyromegaly - Respiratory Respiratory exam: Present: He has fairly good breath sounds bilaterally and is moving air well without any definite wheezing. - Cardiovascular Cardiovascular exam: Present: regular rate and rhythm. Absent: gallop, systolic murmur - GI/Abdominal GI/Abdominal exam: Present: soft, other (His wound is wrapped and he has a colostomy.) He does have a little tenderness. - Extremities Exam Extremities exam: Absent: calf tenderness, edema - Neurological Exam Neurological exam: Present: alert, he wants to move more and has to be restrained - Psychiatric Psychiatric exam: Present: He is a little depressed at present. - Skin Skin exam: Present: warm, dry Results - Labs CBC & BMP: 03/15/17 04:00 03/15/17 04:00 - Diagnostic Findings Procedure: Chest x-ray: image reviewed by me, report reviewed by me (Chest x- ray looks clear.) Assessment and Plan (1) Colon cancer Status: Acute Assessment and plan: Patient had a bowel obstruction and had surgery and this was due to colon cancer. Current Visit: Yes (2) Large bowel obstruction Status: Acute Assessment and plan: Patient is postop with colon cancer resection. He apparently has a small area of abscess. IR will try to drain this today. He will continue with wound care. Current Visit: Yes (3) Acute on chronic renal failure Status: Acute Assessment and plan: Patient developed worsening renal failure and is on dialysis now. Overall he has done reasonably well on dialysis. His creatinine is down to 6.3 and his urine output is better. His renal failure may be recovering somewhat. Current Visit: Yes Qualifiers: Chronic kidney disease stage: on chronic dialysis (4) Diabetes Status: Acute Assessment and plan: Patient's glucoses been monitored and his glucose was 182 this morning. Current Visit: Yes (5) Acute respiratory failure Status: Acute Assessment and plan: Patient was extubated yesterday and is breathing comfortably. His chest x-ray is clear. He is not having any respiratory distress now at all. Current Visit: Yes (6) Gram negative septicemia Status: Acute Assessment and plan: The patient had Citrobacter in his blood culture and is getting treated for this. He is getting IV antibiotics . Current Visit: Yes
--- NOTE | 2017-03-15 08:17 | XRay Report ---
Portable chest Exam date: 03/15/2017 4:00 AM Indication: Shortness of breath, cough respiratory failure Comparison: Previous day at 1156 hours Findings: Cardiomediastinal contours are stable no change in tube or line placement. Persistent blunting of the costophrenic sulci. Coarsened interstitial markings throughout with stranding bibasilar opacities. No acute osseous abnormalities. Visualized upper abdomen demonstrates no acute pathology. Impression: Stable mild interstitial edema pattern with bibasilar atelectasis and trace effusions PROCEDURE INTERPRETED AT [facility] DEPARTMENT OF RADIOLOGY Final Report Signed by: Artem Grant
[2017-03-15 08:44] LABS: Allen Test Positive; Pt O2 Delivery Device Venturi Mask
[2017-03-15 08:45] LABS: ABG Base Excess 0.8 MMOL/L (-2.5-2.5); ABG HCO3 25.1 MMOL/L (20-26); ABG Oxygen Saturation 98.6 % (95-100); ABG PCO2 38.9 MM HG (35-48); ABG PH 7.419 (7.35-7.45); ABG TCO2 23.5 MMOL/L (23-27)
[2017-03-15] MEDS ORDERED: SODIUM CHLORIDE 0.9% 250 ML IV PRN (08:45)
[2017-03-15] MEDS: LANSOPRAZOLE ODT 30 MG TABLET NG SCH (10:21)
[2017-03-15] MEDS: MUPIROCIN 2% OINT 22 GM TUBE TOP SCH ×3 (10:21→21:02)
--- NOTE | 2017-03-15 10:25 | IR History and Physical Update ---
IR Pre-Procedure - History and Physical H&P was reviewed, the patient examined and there: are no changes in the patients condition since last H&P was completed. Reason for procedure:: 71-year-old male with 3.5 cm right lower quadrant abscess. Status post laparotomy. Needs percutaneous drainage. - Dictation Physical: refer to H&P completed by admitting physician - Physical Exam Vital Signs: Last Vital Signs Temp 98.4 F 03/15/17 04:00 Pulse 81 03/15/17 06:00 Resp 20 03/15/17 06:00 BP 151/83 03/15/17 06:00 Pulse Ox 95 03/15/17 06:00 - Sedation IR anesthesia plan for sedation: none ASA Class: IV - Risks Risks: Procedures explained. Risks discussed include, but not limited to, the following:[Bleeding, injury to bowel, sepsis] All questions answered. The following alternatives were discussed:[Repeat surgery] Risks and benefits discussed with: other (daughter Jessica) Consent obtained from: other (daughter Jessica) Assessment and Plan - Time spent with patient Time spent with patient: Less than 30 minutes
--- NOTE | 2017-03-15 10:44 | Event Note ---
Patient status post ex lap. He was found to have an obstructing colon cancer in the descending colon with dilated bowel and the cecal perforation. He had a left hemicolectomy and repair of the cecal perforation. Second look procedure performed with further removal of colon and creation of end colostomy. He has been slowly improving. He experienced renal failure and now undergoing HD per nephrology. He was extubated today. He did not awaken to speak to me but did withdraw from pain. Abx have been changed to rocephin and clindamycin. Pt noted to have fluid collection, likely abscess of RLQ and IR is planning per drain placement today. On exam: He does not open his eyes at time of my exam. His abdomen is sof,t nondistended and the stoma is functioning well. Stoma is pink and patent and viable with a lot of stool in the bag. He has bowel sounds. The midline wound is clean. Labs reviewed. White blood cell count decreased to 13k today. Repeat blood cultures pending Catheter tip culture pending Plan: Leukocytosis improving - continue IV abx and monitor. Percutaneous drain placement pending for today with IR for intra-abdominal abscess - appreciate input. F/u cultures above. Ok to try clear liquids from a surgical standpoint when patient more coherent and following commands better.
--- NOTE | 2017-03-15 11:14 | Hospitalist Progress Note ---
Assessment and Plan (1) Large bowel obstruction Status: Acute Assessment and plan: s/p partial colectomy and end colostomy. Current Visit: Yes (2) Acute respiratory failure Status: Acute Assessment and plan: Patient's oxygenation was not picking up on the sat monitor but his ABG looked excellent. We will decrease him from 50% down to 2 L Current Visit: Yes (3) Anemia Status: Acute Assessment and plan: Patient will receive 2 units of packed red blood cells today. Continue Prevacid Solutab Current Visit: Yes (4) Acute on chronic renal failure Status: Acute Assessment and plan: Dialysis on hold, urine output 635. Current Visit: Yes Qualifiers: Chronic kidney disease stage: on chronic dialysis (5) Hypotension Status: Acute Assessment and plan: blood pressure rising Current Visit: Yes (6) Diabetes Status: Acute Assessment and plan: ISC, tube feeding will be restarted today. Current Visit: Yes (7) Atrial flutter Status: Acute Assessment and plan: afib Current Visit: Yes (8) Gram negative septicemia Status: Acute Assessment and plan: growing citrobacter farmeri cont rocephin. repeat blood cx pending Current Visit: Yes (9) Leukocytosis Status: Acute Assessment and plan: Improving on Rocephin and clindamycin. Repeat blood culture pending, percutaneous drain per IR Current Visit: Yes Hospitalist: Subjective Interval history: Concerned patient may have obstructive sleep apnea. Sent monitor is not picking up his saturation reliably as his blood gas looks rather good. I would like speech to see him today to make sure he is not aspirating. Going to get a percutaneous drain. Patient's hemoglobin is dropped today and will receive 2 units packed red blood cells. Exam - Constitutional Vitals: Period Temp Pulse Resp BP Sys/Florez Pulse Ox Last 24 Hr 96.9 F-98.9 F 78-108 14-26 98-163/62-103 95-100 Exam: Heart Rate-[regular rate and rhythm] Lungs-[rhonchi GI-[Good bs, tender Ext-[no edema, scd] Neuro too sedated to try and feed him psych depressed mood and affect General [no acute distress] Results - Labs CBC & BMP: 03/15/17 04:00 03/15/17 04:00 Lab Results: I have reviewed the past 24 hour labs Labs: Repeat blood cultures pending - Diagnostic Findings Procedure: Chest x-ray: report reviewed by me (Interstitial edema)
[2017-03-15 11:22] LABS: INR 1.1; PT Patient Result 12.1 SECS; Partial Thromboplastin Time 31.3 SECS (0-40)
--- NOTE | 2017-03-15 13:47 | Sleep Medicine Consult ---
Assessment and Plan (1) Unspecified sleep apnea Status: Acute Assessment and plan: There are historical features concerning for sleep apnea. He is critically ill and very debilitated. We will be unable to assess him accurately in his current state. If he improves significantly he may be amenable to home sleep testing. If intervention is felt indicated for abnormal breathing during sleep , would defer to pulmonary for now. Otherwise, we can set him up for outpatient polysomnography after he is discharged. Current Visit: Yes (2) Hypertension Status: Acute Assessment and plan: The prevalence rate for obstructive sleep apnea patients with hypertension is 35 %. That rate can be as high as 80% in patients who require 4 or more medications for blood pressure control. Current Visit: No (3) Type 2 diabetes mellitus Status: Chronic Assessment and plan: The prevalence rate for obstructive sleep apnea in patients with type 2 diabetes can be as high as 86%. Those patients with moderate to severe obstructive sleep apnea are at a greater risk for diabetic nephropathy and neuropathy. Compliance with CPAP therapy for these patients can lead to improvement in glycemic control and improvement in insulin sensitivity. Current Visit: No Qualifiers: Diabetes mellitus complication detail: with chronic kidney disease Chronic kidney disease stage: on chronic dialysis History of Present Illness Chief complaint: Sleep apnea History of present illness: Mr. Allred is a 71 year old male with a very complicated hospital course and history. He was admitted with bowel obstruction and taken to surgery and diagnosed with colon cancer. He has had a very complicated course while hospitalized in has been on mechanical ventilation and just recently extubated. He developed renal failure and is been on hemodialysis. He does have a postop abdominal abscess and is undergoing drainage soon by interventional radiology. There was concern for sleep apnea and sleep medicine was consulted. The patient has had evidence of O2 desaturation during sleep. I did contact his daughter by phone. She does state that he does snore loudly. He does have abnormal breathing during his sleep though she is never clearly witnessed him to stop breathing during sleep. He usually retired about 10 PM and awakened at 7 AM before this illness began. He did have evidence of sleepiness during the day. Home Medications Medication Instructions Recorded Confirmed Type Lisinopril 30 mg PO DAILY 02/04/15 03/08/17 History amLODIPine [Norvasc] 10 mg PO DAILY 10/22/15 03/08/17 History Allopurinol [Zyloprim] 100 mg PO DAILY 03/08/17 03/08/17 History Furosemide Tab [Lasix Tab] 40 mg PO DAILY 03/08/17 03/08/17 History Montelukast Tab [Singulair Tab] 10 mg PO DAILY 03/08/17 03/08/17 History Pantoprazole Tab [Protonix Tab] 40 mg PO DAILY 03/08/17 03/08/17 History Umeclidinium Driscoll [Incruse 1 puff INH DAILY 03/08/17 03/08/17 History Ellipta] Allergies Allergy/AdvReac Type Severity Reaction Status Date / Time No Known Allergies Allergy Verified 03/04/17 12:55 Review of systems: Difficult to obtain due to his current state. He is very hard of hearing. He seems somewhat confused as well. Exam (Pulmonay) H&P - Constitutional Vitals: Period Temp Pulse Resp BP Sys/Florez Pulse Ox Last 24 Hr 97.3 F-98.9 F 78-108 14-26 98-163/62-103 88-100 Exam: Profoundly debilitated and weak. HEENT unremarkable. Oropharynx with class IV Mallampati exam with dry mucosa. He has nasal gastric tube in place with nasal cannula O2 in place. Neck supple without adenopathy. No supraclavicular adenopathy was noted. Chest with symmetrical breath sounds without focal wheeze or rhonchi. Cardiac exam reveals a regular rhythm without murmur or gallop. Abdomen distended mild nonspecific tenderness. Extremities are without significant clubbing or cyanosis. Neurologically, he was hard of hearing and confused but did move all extremities. Medical,Surgical,& Family Hx - Medical History Cardio: History of: CHF, Hypertension, Cardiovascular Problems Psychological: History of: Depression, Psychiatric Problems (depressed mood aeb feelings of helplessness and hopelessness, worthlessness) No history of: Anxiety Disorders, ADHD, Behavior Problems, Bipolar Disorder, Previous Suicide Attempt, Psychiatric/Substance Abuse Tx, Schizophrenia, Violent Behavior Neurology: History of: TIA HEENT: No history of: Ear Problem, Eye Problem, Dental Problems, Glaucoma, Oral Cancer, HEENT Problems Endocrine: History of: Diabetes Mellitus (IDDM) No history of: Adrenal Disease, Diabetes Mellitus (NIDDM), Thyroid Disorder, Endocrine Cancer, Endocrine Problems Rheumatology: History of;: Gout, Rheumatoid Arthritis, Rheumatological Problems No history of;: Fibromyalgia, Myasthenia Gravis, Psoriasis, Sjogrens, Systemic Lupus Erythematosus Respiratory: History of: Asthma, Obstructive Sleep Apnea, Pneumonia, Respiratory Problems Renal: History of: Renal Failure, Renal Problems (CRF, GOUT) No history of: Renal (Kidney) Cancer, Dialysis Genitourinary: History of: Problems No history of: Bladder Problem, Kidney Stones, Prostate Problems, Recurring Urinary Tract Infections, Genitourinary Cancer Gastrointestinal: History of: GERD, GI Problems No history of: Bowel Obstruction, Clostridium Difficile, Crohn's Disease, Diverticulitis/ Diverticulosis, Esophageal Varices, Gastrointestinal Bleed, Hemorrhoids, Hematochezia, Hepatitis, Liver Problems, Pancreatitis, Polyps, Ulcerative Colitis, Gastrointestinal Cancer Musculoskeletal: History of: Back/Neck Problems, Musculoskeletal Problems No history of: Amputation, Degenerative Disk Disease, Herniated Disk, Osteoporosis, Musculoskeletal Cancer Hematology: No history of: Anemia, Blood Transfusion Reaction, Bleeding Problems, Clotting Problems, Sickle Cell Disease, Hematologic Cancer, Blood Disorders Other: No history of: Anesthesia Reactions, Anaphylaxis, Cancer, Eczema, HIV, Malignant Hyperthermia, MRSA, Vancomycin-Resistant Enterococci, Skin Problems, Miscellaneous Medical Problems - Surgical History Cardiac Surgeries: Patient Denies: Femoral-Popliteal Bypass Graft, Cardiac Catheterization, Cardiac Surgery, Internal Defibrillator, Vascular Access Devices Thoracic Surgeries: Patient denies;: Kidney (Renal Surgery), Lithotripsy, Nephrectomy, Organ Transplant, Lobectomy Neurologic Surgeries: Patient denies: Neurologic Surgery HEENT Surgeries: Patient denies: Eye Surgery, Thyroid Surgery, Tonsilectomy & Adenoidectomy Abdominal Surgeries: Patient denies: Abdominal Surgery, Appendectomy, Cholecystectomy, Colonoscopy , Gastric Bypass Surgery, EGD, Hernia Repair, Splenectomy Reproductive Surgeries: Patient denies;: Cystoscopy, Genitourinary Surgery, Prostate Surgery Orthopedic Surgeries: Surgical HX of;: Total Hip Replacement Patient denies;: Implanted Devices, Orthopedic Surgery, Spinal Surgery, Total Knee Replacement - Family History Family History: Reports;: Family Diabetes, Family Heart Disease, Family Hypertension, Family Stroke (mom - lung cancer) Denies;: Family Anesthesia Reaction, Family Cancer, Family Psychiatric Problems - Social History Smoking Status: Never smoker Frequency of Alcohol Use: None Type of Drug Use: None Results - Labs CBC & BMP: 03/15/17 04:00 03/15/17 04:00 Lab Results: I have reviewed the past 24 hour labs
[2017-03-15] MEDS: cefTRIAXone 2,000 MG in SODIUM CHLORIDE 0.9% 100 ML IV SCH (15:34)
[2017-03-15] MEDS: MORPHINE 2 MG/1 ML SYRINGE IV PRN (15:35)
[2017-03-15] MEDS: CARVEDILOL 6.25 MG TABLET PO SCH (17:26)
[2017-03-15] MEDS ORDERED: CARVEDILOL 6.25 MG TABLET PO SCH (21:00)
[2017-03-16] MEDS: INSULIN REGULAR 100 UNIT/ML SUBCUT SCH ×3 (00:17→14:30)
[2017-03-16] MEDS: MORPHINE 2 MG/1 ML SYRINGE IV PRN (02:32)
[2017-03-16 04:55] LABS: Basophils % 0.3 % (0.0-0.8); Eosinophils # 0.4 10*3/uL (0.0-0.87); Eosinophils % 3.6 % (0.00-10.9); Hematocrit 26.8 VOL% (42.0-52.0); Hemoglobin 8.7 GM/DL (14.0-18.0); Immature Granulocytes % 0.7 %; Immature Granulocytes Absolute 0.09 #; Lymphocytes # 0.6 10*3/uL (1.4-4.0); Mean Corpuscular HGB Conc 32.5 GM/DL (32-36); Mean Corpuscular Hemoglobin 28 PG (27-34); Mean Corpuscular Volume 85.1 FL (87-102); Mean Platelet Volume 11.8 FL (9.6-12.0); Monocytes # 0.9 10*3/uL (0.11-0.8); Monocytes % 7.7 % (1.7-12.7); Neutrophils % 82.7 % (38.7-73.9); Platelet Count 380 T/CUMM (130-400); Red Blood Count 3.15 MC/CUMM (3.8-5.5); White Blood Count 12.1 T/CUMM (4-12)
[2017-03-16 05:25] LABS: Calcium 8.3 MG/DL (8.5-10.1); Osmolality,Calculated 308.7 MOS/KG (273-304); Potassium 4.1 MMOL/L (3.5-5.1)
[2017-03-16] MEDS: CLINDAMYCIN INJ 600 MG in PREMIX 1 EACH IV SCH ×2 (05:38→14:36)
--- NOTE | 2017-03-16 07:33 | Nephrology Progress Note ---
Nephrology - PN: Subj Interval history: Patient is feeling better he still complained of some congestion. Review of systems GI he denies nausea or vomiting he is asking for steak to eat Physical exam general the patient is chronically ill-appearing, he has trace pretibial edema Assessment/plan 1. Acute renal failure on chronic renal failure-this patient's creatinine is increased to 7 mg/dL from 6.3 mg/dL yesterday, his urine output is about 50 cc an hour on average, I am going to dialyze him today 2. Bowel obstruction-patient has some faint bowel sounds on exam today, he has been taking some water and we may be able to advance his diet I will defer this to general surgery 3. Diabetes mellitus this is controlled Exam (PN)-Nephrology - Vital Signs Vital signs: Period Temp Pulse Resp BP Sys/Florez Pulse Ox Last 24 Hr 96.3 F-98.9 F 69-99 14-24 101-159/53-104 88-100 - Lab 03/16/17 04:51 03/16/17 04:53 Most recent lab results ABG pH 7.419 (7.35-7.45) 03/15/17 08:35 ABG pCO2 38.9 MM HG (35-48) 03/15/17 08:35 ABG pO2 153.0 MM HG (80-95) H 03/15/17 08:35 ABG HCO3 25.1 MMOL/L (20-26) 03/15/17 08:35 ABG O2 Saturation 98.6 % (95-100) 03/15/17 08:35 Calcium 8.3 MG/DL (8.5-10.1) L 03/16/17 04:53 Phosphorus 5.0 MG/DL (2.5-4.9) H 03/14/17 03:46 Magnesium 2.0 MG/DL (1.8-2.4) 03/16/17 04:53
--- NOTE | 2017-03-16 07:45 | Event Note ---
Afebrile vital signs stable Patient's alert more awake today. He communicates. He moves all extremities. Says his abdomen is sore. He is hungry and wants to eat. His NG tube was pulled yesterday and I am told that he passed a swallow study. He also underwent percutaneous drainage of a fluid collection in the right lower quadrant. I discussed with Dr. Erwin and it was clear watery with no obvious purulence or odor. Cultures were sent. A drain was left in place. The drain this morning has minimal clear fluid. Abdomen is soft appropriately tender nondistended and the midline wound looks good. His colostomy is pink and patent and functioning with stool in the bag. White blood cell count continues to improve. There is no growth on the cath tip culture. Cultures from the PERC drain are still pending. Plan: He had been tolerating tube feeds at goal without any problems. We will give him a soft diet or thickened liquids, whatever he prefers. He may go to [facility]. When he goes to [facility] Dr. Jean will be covering. I will still be available if needed. Unsure if he is going to recover his kidney function. He has a temporary hemodialysis catheter in place that was changed on Tuesday. If he is going to require dialysis more than the next week or [address] a tunneled hemodialysis catheter.
--- NOTE | 2017-03-16 08:30 | Pulmonology Progress Note ---
Pulmonary - PN: Subj Interval history: The patient is a 71-year-old white male that was found to have a colon cancer and had bowel obstruction and required 2 operations. He has a colostomy now. He has been on the ventilator and slow to wean. He did develop renal failure and has required dialysis. He was felt to have a component of heart failure. He has been weaning fairly well and doing T-tube trials. Couple days ago he came off the ventilator and is done fairly well. He says he is breathing okay now. He is more alert and talking more. Yesterday he had an abdominal abscess drained percutaneously. His abdomen is still very sore but is doing better. He will continue with dialysis. Exam (Progress Note) - Constitutional Vitals: Period Temp Pulse Resp BP Sys/Florez Pulse Ox Last 24 Hr 96.3 F-98.9 F 69-99 14-24 101-159/53-104 88-100 Exam: General appearance: normal weight, no distress (He looks very alert and comfortable and in no distress. ) - Head Head exam: Present: normal inspection, normocephalic - Eye Eye exam: Present: EOMI. Absent: scleral icterus Pupils: Present: MEGHA - ENT ENT exam: Present: He does look pale - Neck Neck exam: Absent: lymphadenopathy, tenderness, thyromegaly - Respiratory Respiratory exam: Present: He has fairly good breath sounds bilaterally and is moving air well without any definite wheezing. His lungs are still reasonably clear at present. - Cardiovascular Cardiovascular exam: Present: regular rate and rhythm. Absent: gallop, systolic murmur - GI/Abdominal GI/Abdominal exam: Present: soft, other (His wound is wrapped and he has a colostomy.) He does have a little tenderness. - Extremities Exam Extremities exam: Absent: calf tenderness, edema, he is moving his arms and legs okay but is very weak. - Neurological Exam Neurological exam: Present: alert, he does appear to be extremely weak at present. - Psychiatric Psychiatric exam: Present: He is a little depressed at present. - Skin Skin exam: Present: warm, dry Results - Labs CBC & BMP: 03/16/17 04:51 03/16/17 04:53 Assessment and Plan (1) Colon cancer Status: Acute Assessment and plan: Patient had a bowel obstruction and had surgery and this was due to colon cancer. Current Visit: Yes (2) Large bowel obstruction Status: Acute Assessment and plan: Patient is postop with colon cancer resection. He apparently has a small area of abscess. He had this drained yesterday. He looks a little more comfortable today. Current Visit: Yes (3) Acute on chronic renal failure Status: Acute Assessment and plan: Patient developed worsening renal failure and is on dialysis now. Overall he has done reasonably well on dialysis. He has had better urine output and his urine looks clear. His creatinine is up to 7.0. Hopefully he is getting some return of his renal function. Current Visit: Yes Qualifiers: Chronic kidney disease stage: on chronic dialysis (4) Diabetes Status: Acute Assessment and plan: Patient's glucoses been monitored and his glucose was 142 this morning. Current Visit: Yes (5) Acute respiratory failure Status: Acute Assessment and plan: Patient was extubated and has done fairly well with his breathing. He does not seem to be having any shortness of breath now. Current Visit: Yes (6) Gram negative septicemia Status: Acute Assessment and plan: The patient had Citrobacter in his blood culture and is getting treated for this. He is getting IV antibiotics . Current Visit: Yes
--- NOTE | 2017-03-16 09:15 | Discharge Summary ---
Hospital Course - Hospital Course Hospital Course: Mr. Allred is a 71 year old male with a history of GERD, hypertension, diabetes , gout, chronic renal failure, PTSD, hearing loss, and depression that presented to the ED for further evaluation of severe constipation. Patient reports a 3 or 4 week history of constipation. Patient's white count was elevated at 20.[address] of the abdomen suggest a mass causing obstruction of his mid to distal descending colon. Patient was taken for emergency surgery by Dr. Haywood. The obstructive was caused by a mass. Pathology came back with a benign colon with ischemic colitis and pericolonic abscess. Patient was on Invanz IV. Patient was intubated during surgery and remain intubated. Dr. Jalloh manage the vent. His daughter is been almost completely absent the entire hospitalization. Patient lives alone. Patient came back with an open wound and then Dr. Haywood took him back the following day closed the wound and gave him a colostomy. Patient's white count began to improve on IV Invanz. His white count began to climb on March 14, 2017. CT of his abdomen showed a mass. Interventional radiology placed a percutaneous drain which is producing very little at this time. His white count has continued to improve. She is currently on clindamycin and Rocephin. 1 of 2 of his blood cultures from March 04 grew out Citrobacter farmeri sensitive to Rocephin. Repeat blood cultures have been negative no growth. Patient is already received a full 2 weeks of IV antibiotics but remains on Rocephin and clindamycin for this abscess. Fluid culture from this abscess was negative no growth. I would probably recommend stopping antibiotics soon. Patient will be taken over to [facility] for further care and treatment. He was successfully extubated 2 days ago. He does have a component of sleep apnea and his sats drop along with his heart rate when he sleeps. Dr. Armstrong has seen him and will schedule an outpatient sleep study when discharged from [facility]. Patient does have diabetes with a hemoglobin A1c of 7.9. His blood sugars have been fairly well controlled. She had stage V renal failure had been followed by Dr. Ramires as an outpatient. Patient's BUN was 95 on admission and is up to 100 today. His creatinine was 8.4 and admission in is down to 7. Patient was started on dialysis during this hospitalization we were able to skip a few days as he was making some urine but they plan on dialyzing him today. Dr. Ramires has labeled him acute on chronic renal failure. Vision has had acute blood loss anemia due to surgery and received 5 units of packed red blood cells. She then had some problems with hypotension and atrial flutter which are now controlled however with his acute blood loss anemia and he is not a good candidate date for anticoagulation at this time. Patient will be transferred over to [facility] for wound care IV antibiotics physical therapy and continuous monitoring by both surgery and renal. He will still require dialysis per Dr. Ramires. - Time spent with patient Time with patient DS: Greater than 30 minutes (60 min) Diagnosis - Discharge Diagnosis (1) Large bowel obstruction Status: Acute (2) Acute respiratory failure Status: Acute (3) Anemia Status: Acute (4) Acute on chronic renal failure Status: Acute (5) Hypotension Status: Acute (6) Diabetes Status: Acute (7) Atrial flutter Status: Acute (8) Gram negative septicemia Status: Acute (9) Leukocytosis Status: Acute Discharge Plan - Discharge Data Disposition: Disch/Xfer to [facility] Condition at Discharge: Stable Discharge Diet: diabetic diet (pureed) Activity: resume usual activities as tolerated, as per physical therapy Hygiene: no restrictions Weight Bearing at Discharge: full weight bearing - Discharge Medications New Carvedilol [Coreg] 6.25 mg PO BID W/MEALS tablet cefTRIAXone [Rocephin] 2,000 mg IV Q24H vial Clindamycin Inj [Cleocin Inj] 600 mg IV Q8H Insulin Regular [HumuLIN R] See Protocol SUBCUT Q6HR unit Lansoprazole Odt Tab [Prevacid Solutab] 30 mg NG DAILY tablet Morphine Inj 2 mg IV Q4H PRN syringe PRN Reason: Pain Severe (8-10) Mupirocin 2% Oint [Bactroban 2% Oint] 1 applic TOP TID applic Glucagon 1 mg IM PRN PRN vial PRN Reason: Hypoglycemia w/o IV access Ondansetron Inj [Zofran Inj] 4 mg IV Q4H PRN vial PRN Reason: Nausea Continue Umeclidinium Stanton [Incruse Ellipta] 1 puff INH DAILY Discontinued Lisinopril 30 mg PO DAILY Allopurinol [Zyloprim] 100 mg PO DAILY Montelukast Tab [Singulair Tab] 10 mg PO DAILY Furosemide Tab [Lasix Tab] 40 mg PO DAILY Pantoprazole Tab [Protonix Tab] 40 mg PO DAILY amLODIPine [Norvasc] 10 mg PO DAILY - Follow Up or Referral - Forms/Instructions Exam - Constitutional Vitals: Period Temp Pulse Resp BP Sys/Florez Pulse Ox Last 24 Hr 96.3 F-98.9 F 69-99 14-24 118-159/53-104 93-100 General appearance: normal weight, mild distress - Head Head exam: Present: normal inspection, normocephalic - Respiratory Respiratory exam: Present: decreased breath sounds, rhonchi - Cardiovascular Cardiovascular exam: Present: regular rate and rhythm, systolic murmur - GI/Abdominal GI/Abdominal exam: Present: normal bowel sounds, soft - Neurological Exam Neurological exam: Present: altered - Psychiatric Psychiatric exam: Present: depressed, flat affect Discharge Results Procedures and tests throughout hospitalization: Pending Orders 03/14/17 12:30 Catheter Tip Culture Routine 03/14/17 14:07 Blood Culture Stat 03/14/17 14:08 Consult to Interventional Rad Routine 03/15/17 10:22 CT abscess drainage peritoneal Routine 03/15/17 14:50 Body Fluid Cult and Gram Stain Stat 03/17/17 04:00 BMP w/ Mg [Basic Metabolic Panel w/Mg] IN AM 03/18/17 04:00 BMP w/ Mg [Basic Metabolic Panel w/Mg] IN AM Labs on day of discharge: Labs from last 24 hours 03/16/17 03/16/17 03/16/17 07:52 05:21 04:53 WBC RBC Hgb Hct MCV MCH MCHC RDW Plt Count MPV Neut % (Auto) Lymph % (Auto) Cavalier % (Auto) Eos % (Auto) Baso % (Auto) Neut # (Auto) Lymph # (Auto) Cavalier # (Auto) Eos # (Auto) Baso # (Auto) Immature Gran % Nucleated RBC % Immature Gran # Nucleated RBCs # Immature Plt Fraction INR PT Patient/Control Mix Circ Anticoag PTT Sodium 138 Potassium 4.1 Chloride 101 Carbon Dioxide 26 Anion Gap 15.1 H BUN 100 H Creatinine 7.00 H GFR Calculation 9 BUN/Creatinine Ratio 14.00 Glucose 153 H POC Glucose 142 H 150 H Calculated Osmolality 308.7 H Calcium 8.3 L Magnesium 2.0 Blood Type Antibody Screen Crossmatch 09/03/15/17 03/15/17 04:51 Unknown 23:57 WBC 12.1 H RBC 3.15 L Hgb 8.7 L Hct 26.8 L MCV 85.1 L MCH 28 MCHC 32.5 RDW 16.0 Plt Count 380 MPV 11.8 Neut % (Auto) 82.7 H Lymph % (Auto) 5.0 L Cavalier % (Auto) 7.7 Eos % (Auto) 3.6 Baso % (Auto) 0.3 Neut # (Auto) 10.0 H Lymph # (Auto) 0.6 L Cavalier # (Auto) 0.9 H Eos # (Auto) 0.4 Baso # (Auto) 0.0 Immature Gran % 0.7 Nucleated RBC % 0.0 Immature Gran # 0.09 Nucleated RBCs # 0.00 Immature Plt Fraction 0.0 INR PT Patient/Control Mix Circ Anticoag PTT Sodium Potassium Chloride Carbon Dioxide Anion Gap BUN Creatinine GFR Calculation BUN/Creatinine Ratio Glucose POC Glucose 120 H Calculated Osmolality Calcium Magnesium Blood Type O POSITIVE Antibody Screen Negative Crossmatch See Detail 03/15/17 03/15/17 03/15/17 17:01 11:05 10:50 WBC RBC Hgb Hct MCV MCH MCHC RDW Plt Count MPV Neut % (Auto) Lymph % (Auto) Cavalier % (Auto) Eos % (Auto) Baso % (Auto) Neut # (Auto) Lymph # (Auto) Cavalier # (Auto) Eos # (Auto) Baso # (Auto) Immature Gran % Nucleated RBC % Immature Gran # Nucleated RBCs # Immature Plt Fraction INR 1.1 PT Patient/Control Mix 12.1 Circ Anticoag PTT 31.3 Sodium Potassium Chloride Carbon Dioxide Anion Gap BUN Creatinine GFR Calculation BUN/Creatinine Ratio Glucose POC Glucose 210 H 170 H Calculated Osmolality Calcium Magnesium Blood Type Antibody Screen Crossmatch Preliminary micro results at discharge 03/14/17 14:07 Blood Culture - Preliminary Blood No growth at 1 day 03/14/17 14:07 Blood Culture - Preliminary Blood No growth at 1 day 03/14/17 12:30 Catheter Tip Culture - Preliminary Catheter Tip - Other No growth at 24 hours DS: Provider Date of admission: 03/04/17 17:05 Primary care physician: . No PCP Attending physician on admission: Ev Green MD Consults: 03/04/17 17:33 Consult to Physician [CONS] Routine Comment: acute on chronic renal failure Consulting Provider: Fausto Ramires Consulting Provider Notified: Yes When should Consulting Provider be notified: Now Person Notified: Dr souza Date Notified: 03/04/17 Time Notified: 18:34 Consult Notification Comment: Yanick saw pt at 1830 03/04/17 22:47 Consult to Physician [CONS] Routine Comment: Consulting Provider: Consulting Provider Notified: Yes Consult to Specialist Group: Pulmonology When should Consulting Provider be notified: Now Person Notified: Dr. Jalloh Date Notified: 03/05/17 Time Notified: 00:52 03/07/17 09:50 Consult to Dietitian [CONS] Routine Reason for Dietitian: TPN/PPN-Initiate/Manage 03/11/17 08:32 Consult to Dietitian [CONS] Routine Reason for Dietitian: TF-Initiate/Manage Consult Comment: do not progress > 10cc/hr without approval from surgeon. thanks. 03/14/17 10:44 Consult to Case Mgmt/Social Srvs [CONS] Routine Reason for Case Mgmt/Social Srvs: LTAC 03/15/17 08:44 Consult to Sleep Center [CONS] Routine Reason for Sleep Center: Sleep Center Physician Consult Comment: amina 03/15/17 08:46 Consult to Speech Therapy [CONS] Routine Reason for Speech Therapy: Swallowing Impairment Discharging clinician: Ev Green MD
[2017-03-16] MEDS: MUPIROCIN 2% OINT 22 GM TUBE TOP SCH (09:32)
[2017-03-16] MEDS: CARVEDILOL 6.25 MG TABLET PO SCH (09:32)
[2017-03-16] MEDS: LANSOPRAZOLE ODT 30 MG TABLET NG SCH (09:32)
--- NOTE | 2017-03-16 12:57 | Dialysis Note ---
Dialysis Note - Dialysis Note Patient seen on dialysis tolerating procedure. Blood pressure noted to be 125/ 66. Pulse is 72.
[2017-03-16] MEDS: cefTRIAXone 2,000 MG in SODIUM CHLORIDE 0.9% 100 ML IV SCH (14:36)
[2017-03-16 15:35] VITALS: BP 112/76
--- NOTE | 2017-03-17 07:20 | CT Report ---
CT abscess drainage peritoneal, Consult to Interventional Rad Indication: Abscess right lower quadrant. CT-GUIDED PERCUTANEOUS ABSCESS DRAIN PLACEMENT RIGHT LOWER QUADRANT Description: A formal timeout was performed. Right lower quadrant was prepped and draped in a sterile fashion. CT imaging of the lower abdomen confirms a 3.5 cm abscess collection within the right lower quadrant adjacent to small bowel. Taking care to avoid small bowel from a lateral approach, an AccuStick needle was then advanced directly into the abscess collection. Position was confirmed with CT. The AccuStick needle was exchanged over a wire for a sheath followed by exchange for a 8 Monegasque pigtail drain catheter. The pigtail was formed, and aspirate of 2 cc rather clear but yellow fluid was obtained for culture and Gram stain, and the catheter anchored with a Percu-Stay device. The catheter was connected to suction bag device. Patient tolerated the procedure well and was transferred to the CCU in stable condition. Impression: Uncomplicated placement of 8 Monegasque pigtail drain catheter right lower quadrant intraperitoneal abscess collection. Specimen obtained for culture and Gram stain. PROCEDURE INTERPRETED AT [facility] DEPARTMENT OF RADIOLOGY Final Report Signed by: Fausto Erwin M.D.
== END 2017-03-16 15:55 | DRG 329 ==
LOC: N.ED 12:39 → N.EDINP 17:05 → SUATTDRO 17:05 → N.3E 18:09 → N.CC 23:41
PROVIDERS: ADMIT Internal Medicine; ATTEND Internal Medicine